=== PATIENT | male | born 1990 | race African-American/Black ===

== ENCOUNTER 2017-01-12 18:17 | Emergency (ER) | payer OTHER ==
[~2017-01-12] VITALS: Ht 170.2 cm; Wt 67.1 kg
[~2017-01-12 18:17] MED LIST: HYDR-3326 PO
--- NOTE | 2017-01-12 18:41 | NUR ---
DR DUEÑAS AT THE BEDSIDE FOR EVAL AND EXAM.
--- NOTE | 2017-01-12 18:57 | NUR ---
PT LEFT ER FOR CT.
[2017-01-12 19:01] LABS: BASOPHILS % (AUTO) 0.8 % (0.0-2.0); EOSINOPHILS # (AUTO) 0.2 K/uL (0.0-0.7); EOSINOPHILS % (AUTO) 4.1 % (0.0-7.0); HEMATOCRIT 44.6 % (40-50); HEMOGLOBIN 14.4 G/DL (14.0-18.0); LYMPHOCYTES # (AUTO) 1.2 K/UL (0.8-4.8); LYMPHOCYTES % (AUTO) 29.6 % (20.5-51.5); MEAN CORPUSCULAR HEMOGLOBIN 27.2 UUG (27.0-31.0); MEAN CORPUSCULAR HGB CONC 32 g/dL (32.0-37.0); MEAN CORPUSCULAR VOLUME 83.9 FL (82.0-92.0); MONOCYTES # (AUTO) 0.6 K/UL (0.1-1.30); MONOCYTES % (AUTO) 15.7 % (0.0-11.0); NEUTROPHILS # (AUTO) 2.1 K/UL (1.8-8.9); NEUTROPHILS % (AUTO) 49.8 % (38.5-71.5); PLATELET COUNT (AUTO) 215 K/UL (150-450); RED BLOOD CELL COUNT(AUTO) 5.31 MIL/UL (4.7-6.1); WHITE BLOOD COUNT (AUTO) 4.1 K/UL (4.0-11.2)
[2017-01-12 19:28] LABS: BILIRUBIN,DIRECT 0.1 mg/dL (0.0-0.2); BILIRUBIN,TOTAL 0.5 mg/dL (0.2-1.0); TOTAL PROTEIN, SERUM 8.6 g/dL (6.4-8.2)
[2017-01-12 19:38] LABS: NEUTROPHILS % (MANUAL) 54 % (42-75)
[2017-01-12 19:39] LABS: EOSINOPHILS % (MANUAL) 2 % (0-8); LYMPHOCYTES % (MANUAL) 36 % (20-40); MONOCYTES % (MANUAL) 8 % (2-10)
[2017-01-12] MEDS ORDERED: ACETAMINOPHEN ES 500 MG TABLET PO ONE (19:45)
[2017-01-12] MEDS ORDERED: ACETAMINOPHEN ES 500 MG TABLET ONE (19:54)
[2017-01-12 20:05] LABS: CREATININE 1.4 mg/dL (0.6-1.3); POTASSIUM 3.5 mmol/L (3.5-5.1)
--- NOTE | 2017-01-12 20:53 | NUR ---
Patient discharged to home in stable conditon. Written and verbal after care instructions given. Patient verbalizes understanding of instructions. pt able to ambulate on own, with no assistance, IV removed from left AC, pt walked out of ER unassisted with belongings and friend at side...
[2017-01-12 20:55] VITALS: BP 118/56
== END 2017-01-12 21:01 | disposition home or self-care (01) ==
LOC: ER 18:18
DX: R55 Syncope and collapse (principal); N28.9 Disorder of kidney and ureter, unspecified; F17.200 Nicotine dependence, unspecified, uncomplicated; W18.30XA Fall on same level, unspecified, initial encounter; Y93.89 Activity, other specified; Y99.8 Other external cause status; Y92.89 Other specified places as the place of occurrence of the external cause
CPT/HCPCS: 36415; 70450; 72040; 85025; 93005; A4663

== ENCOUNTER 2017-01-13 16:03 | Emergency (ER) | payer OTHER ==
[~2017-01-13] VITALS: Ht 170.2 cm; Wt 67.1 kg
[2017-01-13] MEDS ORDERED: ONDANSETRON 4 MG/2 ML VIAL IV ONE (16:15)
[2017-01-13] MEDS ORDERED: IV NORMAL SALINE 1000 ML BAG IV ONE (16:15)
[2017-01-13 16:26] LABS: BASOPHILS % (AUTO) 0.3 % (0.0-2.0); EOSINOPHILS % (AUTO) 0.3 % (0.0-7.0); HEMATOCRIT 46.8 % (40-50); HEMOGLOBIN 15.2 G/DL (14.0-18.0); LYMPHOCYTES # (AUTO) 0.8 K/UL (0.8-4.8); LYMPHOCYTES % (AUTO) 13.3 % (20.5-51.5); MEAN CORPUSCULAR HEMOGLOBIN 27.3 UUG (27.0-31.0); MEAN CORPUSCULAR HGB CONC 32 g/dL (32.0-37.0); MEAN CORPUSCULAR VOLUME 84.1 FL (82.0-92.0); MONOCYTES # (AUTO) 0.6 K/UL (0.1-1.30); MONOCYTES % (AUTO) 10.2 % (0.0-11.0); NEUTROPHILS # (AUTO) 4.4 K/UL (1.8-8.9); NEUTROPHILS % (AUTO) 75.9 % (38.5-71.5); PLATELET COUNT (AUTO) 239 K/UL (150-450); RED BLOOD CELL COUNT(AUTO) 5.57 MIL/UL (4.7-6.1); WHITE BLOOD COUNT (AUTO) 5.8 K/UL (4.0-11.2)
[2017-01-13] MEDS ORDERED: ONDANSETRON 4 MG/2 ML VIAL ONE (16:29)
[2017-01-13 16:34] LABS: CREATININE 1.2 mg/dL (0.6-1.3); POTASSIUM 3.6 mmol/L (3.5-5.1)
--- NOTE | 2017-01-13 17:07 | NUR ---
Patient discharged to home in stable conditon. Written and verbal after care instructions given. Patient verbalizes understanding of instructions.pt walks in steady gait.
[2017-01-13 17:08] VITALS: BP 132/81
== END 2017-01-13 17:09 | disposition home or self-care (01) ==
LOC: ER 16:05
DX: S06.0X9A Concussion with loss of consciousness of unspecified duration, initial encounter (principal); R11.2 Nausea with vomiting, unspecified; F17.200 Nicotine dependence, unspecified, uncomplicated; X58.XXXA Exposure to other specified factors, initial encounter; Y93.89 Activity, other specified; Y92.89 Other specified places as the place of occurrence of the external cause; Y99.8 Other external cause status
CPT/HCPCS: 36415; 85025; A4663; J2405; J7030

== ENCOUNTER 2017-06-20 07:25 | Inpatient (IN) | payer OTHER ==
[~2017-06-20] VITALS: Ht 170.2 cm; Wt 70.3 kg
--- NOTE | 2017-06-20 07:46 | NUR ---
PT IS IN ROOM #2B. DR JUAREZ EVALUATED THE PT.
[2017-06-20] MEDS ORDERED: PROMETHAZINE HCL 25 MG/1 ML VIAL IM ONE (08:00)
[2017-06-20] MEDS ORDERED: HYDROMORPHONE 1 MG/1 ML DISP.SYRIN IM ONE (08:00)
[2017-06-20 08:03] LABS: *BILIRUBIN,URIN NEGATIVE (NEGATIVE); *BLOOD, URINE NEGATIVE (NEGATIVE); *CLARITY,URINE CLEAR (CLEAR); *COLOR,URINE YELLOW (YELLOW); *KETONES,URINE NEGATIVE (NEGATIVE); *PROTEIN,URINE 1+ (NEGATIVE); LEUKOCYTE ESTERASE ,URINE NEGATIVE (NEGATIVE); NITRITE, URINE NEGATIVE (NEGATIVE); UGLUCOSE NEGATIVE (NEGATIVE)
[2017-06-20] MEDS ORDERED: PROMETHAZINE HCL 25 MG/1 ML VIAL ONE (08:10)
[2017-06-20] MEDS ORDERED: HYDROMORPHONE 2 MG/1 ML DISP.SYRIN ONE (08:10)
[2017-06-20 08:14] LABS: BACTERIA,URINE FEW /HPF (NONE SEEN); RBC,URINE 0-3 /HPF (0-3); SQUAMOUS EPITHELIAL CELL,UR FEW /HPF (NONE SEEN)
[2017-06-20] MEDS ORDERED: IV NORMAL SALINE 1000 ML BAG IV ONE (09:00)
[2017-06-20] MEDS ORDERED: METRONIDAZOLE 500 MG/NS 100 ML PIGGYBACK IV ONE (09:15)
[2017-06-20] MEDS ORDERED: CEFTRIAXONE 1 G in IV DEXTROSE 5% 50 ML IV ONE (09:15)
[2017-06-20 09:31] LABS: BASOPHILS % (AUTO) 0.9 % (0.0-2.0); EOSINOPHILS % (AUTO) 0.8 % (0.0-7.0); HEMATOCRIT 41.5 % (36.7-47.1); HEMOGLOBIN 14.2 g/dL (12.5-16.3); LYMPHOCYTES # (AUTO) 0.7 K/uL (20.0-40.0); LYMPHOCYTES % (AUTO) 21.9 % (20.5-51.5); MEAN CORPUSCULAR HEMOGLOBIN 27.9 uug (23.8-33.4); MEAN CORPUSCULAR HGB CONC 34 g/dL (32.5-36.3); MEAN CORPUSCULAR VOLUME 81.9 fL (73.0-96.2); MONOCYTES # (AUTO) 1.2 K/uL (2.0-10.0); MONOCYTES % (AUTO) 36.5 % (0.0-11.0); NEUTROPHILS # (AUTO) 1.3 K/uL (1.8-8.9); NEUTROPHILS % (AUTO) 39.9 % (38.5-71.5); PLATELET COUNT (AUTO) 173 K/uL (152-348); RED BLOOD CELL COUNT(AUTO) 5.07 MIL/uL (4.06-5.63); WHITE BLOOD COUNT (AUTO) 3.2 K/uL (3.6-10.2)
[2017-06-20] MEDS ORDERED: CEFTRIAXONE 1 G VIAL ONE (09:31)
[2017-06-20] MEDS ORDERED: METRONIDAZOLE 500 MG/NS 100ML 100 ML IV ONE (09:31)
[2017-06-20 09:33] LABS: CREATININE 1.3 mg/dL (0.6-1.3); POTASSIUM 3.9 mmol/L (3.5-5.1)
[2017-06-20 09:39] LABS: BILIRUBIN,DIRECT 0.1 mg/dL (0.0-0.2); BILIRUBIN,TOTAL 0.4 mg/dL (0.2-1.0); TOTAL PROTEIN, SERUM 7.4 g/dL (6.4-8.2)
[2017-06-20 09:51] LABS: EOSINOPHILS % (MANUAL) 1 % (0-8); LYMPHOCYTES % (MANUAL) 27 % (20-40); MONOCYTES % (MANUAL) 23 % (2-10); NEUTROPHILS % (MANUAL) 49 % (42-75)
--- NOTE | 2017-06-20 10:00 | NUR ---
PT ARRIVED ON THE UNIT CALM, COOPERATIVE, NO SIGNS OF RESPIRATORY DISTRESS, CONTINUE TO GIVE FLAGYL FROM DOWNSTAIRS. PT VERBALIZED PLAN OF CARE: LAPAROSCOPIC APPENDECTOMY TODAY AT APPROX 15:30. PT IS TO REMAIN NPO FOR PROCEDURE. PT IS AGREEABLE TO PLAN OF CARE.
[2017-06-20 10:10] VITALS: BP 126/76
--- NOTE | 2017-06-20 10:11 | NUR ---
PT WAS TRANSFERED TO ROOM #226. REPORT WAS GIVEN TO M/S RN.
[2017-06-20 11:45] VITALS: BP 123/74
[2017-06-20] MEDS ORDERED: IV D5W-0.45% NS +20 KCL 1,000 ML IV PRN (13:25)
[2017-06-20] MEDS ORDERED: ONDANSETRON 4 MG/2 ML VIAL IV PRN ×2 (13:30→17:45)
[2017-06-20] MEDS ORDERED: ACETAMINOPHEN 325 MG TABLET PO PRN (13:30)
[2017-06-20] MEDS ORDERED: MORPHINE SULFATE 2 MG/1 ML DISP.SYRIN IV PRN (13:30)
[2017-06-20] MEDS ORDERED: MORPHINE SULFATE 4 MG/1 ML DISP.SYRIN IV PRN ×2 (13:45→17:45)
[2017-06-20] MEDS: METRONIDAZOLE 500 MG/NS 100ML 500 MG in PREMIXED 1 EACH IV SCH ×2 (14:06→21:38)
--- NOTE | 2017-06-20 15:30 | NUR ---
PT HAS IV IN RIGHT FOREARM, INTACT 20 GAUGE. PT SIGNED CONSENT FOR PROCEDURE AND IN SIDE THE CHART, PRE-OP CHECK LIST DONE, JEWELRY YELLOW NECKLACE AND BRACELET PUT AWAY. PT LEFT UNIT FOR LAPAROSCOPIC APPENDECTOMY.
[2017-06-20 15:48] VITALS: BP 155/87
[2017-06-20] MEDS ORDERED: MIDAZOLAM HCL 2 MG/2 ML VIAL ONE (15:55)
[2017-06-20] MEDS ORDERED: FENTANYL CITRATE 100 MCG/2 ML AMPUL ONE (15:55)
[2017-06-20] MEDS ORDERED: ROCURONIUM BROMIDE 50 MG/5 ML VIAL ONE (15:56)
[2017-06-20] MEDS ORDERED: LIDOCAINE HCL 1% 20 ML VIAL ONE (16:07)
[2017-06-20] MEDS ORDERED: BUPIVACAINE 0.25% 30 ML VIAL ONE (16:08)
--- NOTE | 2017-06-20 18:10 | NUR ---
PT ARRIVED FROM PROCEDURE, CALM, COOPERATIVE, NO SIGNS OF DISTRESS, VITALS STABLE. PT GIVEN BACK HIS YELLOW NECKLACE AND BRACELET.
--- NOTE | 2017-06-20 18:40 | NUR ---
PT C/O 6/10 PAIN AND WAS GIVEN A NORCO. PT IS OBSERVED RESTING WITH NO DISTRESS. FAMILY IS AT BEDSIDE.
[2017-06-20] MEDS: HYDROCODONE/APAP 5-325MG TABLET PO PRN (18:42)
[2017-06-20] MEDS: IV D5 1/2 NS 1000 ML 1,000 ML IV PRN (19:00)
[2017-06-20] MEDS: MORPHINE SULFATE 4 MG/1 ML DISP.SYRIN IV PRN ×2 (19:49→23:17)
--- NOTE | 2017-06-20 20:00 | NUR ---
RECEIVED PATIENT AWAKE IN BED WITH FAMILY AT BEDSIDE. PATIENT IS A/O X4. C/O PAIN AROUND SURGICAL SITE. INCISIONS X3 NOTED, INTACT WITH DERMA-JACOB. VSS. PATIENT WAS PREVIOUSLY MEDICATED WITH 1 NORCO BUT INEFFECTIVE. GIVEN MORPHINE 3MG IV PRN AND ZOFRAN 4MG IV PRN FOR NAUSEA. IVF INFUSING WELL TO RIGHT FA. NO RESP. DISTRESS NOTED. CALL LIGHT IN REACH, ALL NEEDS ATTENDED. WILL CONTINUE TO MONITOR AND ASSESS.
[2017-06-20] MEDS ORDERED: SEVOFLURANE 250 ML BOTTLE IH ONE (20:17)
[2017-06-20] MEDS ORDERED: NEOSTIGMINE METHYLSULFATE 10 MG/10 ML VIAL IV ONE (20:17)
[2017-06-20] MEDS ORDERED: IV LACTATED RINGERS SOLUTION 1,000 ML BAG IV ONE ×2 (20:17)
[2017-06-20] MEDS ORDERED: LIDOCAINE-MPF 2% 5 ML VIAL MC ONE (20:17)
[2017-06-20] MEDS ORDERED: KETOROLAC TROMETHAMINE 30 MG INJ IM ONE (20:17)
[2017-06-20] MEDS ORDERED: PROPOFOL 200 MG/20 ML BOTTLE IV ONE (20:17)
[2017-06-20] MEDS ORDERED: CEFAZOLIN 1 G VIAL MC ONE (20:17)
[2017-06-20] MEDS ORDERED: GLYCOPYRROLATE 0.2 MG/ML VIAL MC ONE (20:17)
[2017-06-20] MEDS ORDERED: DEXAMETHASONE SOD PHOSPHATE 4 MG INJ IV ONE (20:17)
[2017-06-20] MEDS ORDERED: ONDANSETRON 4 MG/2 ML VIAL IV ONE (20:17)
[2017-06-20 20:54] VITALS: BP 114/74
[2017-06-20] MEDS ORDERED: CEFTRIAXONE 2 G in IV DEXTROSE 5% 100 ML IV SCH (21:00)
--- NOTE | 2017-06-20 21:00 | NUR ---
PATIENT AWAKE IN BED. PAIN MEDICATION EFFECTIVE. PATIENT GIVEN INCENTIVE SPIROMETER AND TEACHING PROVIDED. PATIENT VERBALIZED UNDERSTANDING. PATIENT EDUCATED ON THE IMPORTANCE OF AMBULATION AND ENCOURAGED TO GET OOB AND AMBULATE. ICE APPLIED TO TO AFFECTED AREA FOR RELIEF. CALL LIGHT IN REACH. ALL NEEDS ATTENDED. WILL CONTINUE TO MONITOR.
[2017-06-21] MEDS: MORPHINE SULFATE 4 MG/1 ML DISP.SYRIN IV PRN ×3 (02:11→13:40)
[2017-06-21] MEDS: IV D5 1/2 NS 1000 ML 1,000 ML IV PRN ×2 (02:52→13:47)
[2017-06-21 04:48] VITALS: BP 112/61
--- NOTE | 2017-06-21 06:00 | NUR ---
PATIENT ASLEEP IN BED. NO S/S OF PAIN OR DISCOMFORT. NO RESP. DISTRESS NOTED. IV INFUSING WELL TO RIGHT FA. CALL LIGHT IN REACH. ALL NEEDS ATTENDED.
[2017-06-21] MEDS: METRONIDAZOLE 500 MG/NS 100ML 500 MG in PREMIXED 1 EACH IV SCH ×2 (06:15→14:58)
[2017-06-21 07:18] LABS: BASOPHILS % (AUTO) 0.5 % (0.0-2.0); EOSINOPHILS % (AUTO) 0.3 % (0.0-7.0); HEMATOCRIT 37.4 % (36.7-47.1); HEMOGLOBIN 12.8 g/dL (12.5-16.3); LYMPHOCYTES # (AUTO) 0.8 K/uL (20.0-40.0); LYMPHOCYTES % (AUTO) 21.9 % (20.5-51.5); MEAN CORPUSCULAR HEMOGLOBIN 27.9 uug (23.8-33.4); MEAN CORPUSCULAR HGB CONC 34 g/dL (32.5-36.3); MEAN CORPUSCULAR VOLUME 81.1 fL (73.0-96.2); MONOCYTES # (AUTO) 0.7 K/uL (2.0-10.0); MONOCYTES % (AUTO) 18.6 % (0.0-11.0); NEUTROPHILS # (AUTO) 2.1 K/uL (1.8-8.9); NEUTROPHILS % (AUTO) 58.7 % (38.5-71.5); PLATELET COUNT (AUTO) 168 K/uL (152-348); RED BLOOD CELL COUNT(AUTO) 4.61 MIL/uL (4.06-5.63); WHITE BLOOD COUNT (AUTO) 3.7 K/uL (3.6-10.2)
[2017-06-21] MEDS ORDERED: MORPHINE SULFATE 4 MG/1 ML DISP.SYRIN ONE (07:24)
[2017-06-21 07:30] LABS: BILIRUBIN,TOTAL 0.2 mg/dL (0.2-1.0); MAGNESIUM 1.6 mg/dL (1.8-2.4); PHOSPHOROUS 4.1 mg/dL (2.5-4.9); POTASSIUM 3.7 mmol/L (3.5-5.1); TOTAL PROTEIN, SERUM 6.4 g/dL (6.4-8.2)
--- NOTE | 2017-06-21 09:00 | NUR ---
PT VERBALIZES PAIN 9/10 ON THE ANTERIOR UPPER PORTION OF ABDOMEN. GRIMACING, GUARDING, RESTLESS. PT GIVEN MORPHINE WILL CONTINUE TO MONITOR.
[2017-06-21 09:28] LABS: BAND % (MANUAL) 17 % (0-10); BASOPHILS % (MANUAL) 1 % (0-2); EOSINOPHILS % (MANUAL) 1 % (0-8); LYMPHOCYTES % (MANUAL) 22 % (20-40); MONOCYTES % (MANUAL) 21 % (2-10); NEUTROPHILS % (MANUAL) 38 % (42-75)
--- NOTE | 2017-06-21 09:37 | NUR ---
PT PLAN OF CARE TODAY IS TO MANAGE PAIN, AMBULATE, HAVE BM AND, USE INCENTIVE SPIROMETER. PT IS AGREEABLE WITH PLAN OF CARE. USE OF INCENTIVE SPIROMETER WAS TAUGHT. TO VERBALIZES UNDERSTANDING.
[2017-06-21 11:04] VITALS: BP 129/80
[2017-06-21] MEDS: MAGNESIUM SULFATE/D5W 100 ML IV SCH ×2 (13:40→14:58)
[2017-06-21 15:12] VITALS: BP 125/85
[2017-06-21] MEDS ORDERED: ACET-2154 PO (18:29)
--- NOTE | 2017-06-21 18:47 | NUR ---
PTS PLAN OF CARE WAS EFFECTIVE, PT IS AGREEABLE WITH RESULT. PT'S PAIN IS MANAGED, HE AMBULATED AND USED HIS INCENTIVE SPIROMETER, AND VOIDED TODAY. PT IS OBSERVED RESTING WITHOUT RESPIRATORY DISTRESS, NO SIGNS OF INFECTION, CALM, COOPERATIVE.
[2017-06-21] MEDS: HYDROCODONE/APAP 5-325MG TABLET PO PRN (19:31)
--- NOTE | 2017-06-21 19:35 | NUR ---
RECEIVED PATIENT AWAKE IN BED. A/O X4. RECEIVED ORDER FOR PATIENT TO BE DISCHARGED TONIGHT. PATIENT IS C/O IN ABDOMEN. GIVEN NORCO 1 TAB FOR PAIN. VSS. PATIENT INSTRUCTED THAT HE NEEDS TO WAIT A LITTLE WHILE AFTER TAKING MEDICATION. VERBALIZED UNDERSTANDING, PATIENT IS BEING PICKED UP BY FRIEND. WILL CONTINUE TO MONITOR.
--- NOTE | 2017-06-21 20:13 | NUR ---
FRIEND AT BEDSIDE TO REGIONAL ENGAGEMENT CONSULTANT PATIENT. NORCO EFFECTIVE. PATIENT DENIES PAIN. VSS. DISCHARGE TEACHING PROVIDED. CALL LIGHT IN REACH. ALL NEEDS ATTENDED. WILL CONTINUE TO MONITOR AND ASSESS.
--- NOTE | 2017-06-21 20:18 | NUR ---
PATIENT LEFT IN STABLE CONDITION.
== END 2017-06-21 20:18 | disposition home or self-care (01) | DRG 225 ==
LOC: ER 07:25 → MED 09:44
PROVIDERS: ADMIT Nurse Practitioner Acute Care; ATTEND Nurse Practitioner Acute Care
PROC: 0DTJ4ZZ Resection of Appendix, Percutaneous Endoscopic Approach (ICD-10-PCS; principal; 2017-06-20 15:20)
DX: K35.80 Unspecified acute appendicitis (principal); K85.90 Acute pancreatitis without necrosis or infection, unspecified; R80.9 Proteinuria, unspecified
CPT/HCPCS: 36415; 83690; 83735; 84100; 85025; 85730; A4663; J0690; J0696; J1100; J1170; J1885; J2250; J2270; J2405; J2550; J2710; J3010; J3475; J3490; J7030; J7060; J7120

== ENCOUNTER 2017-06-22 21:58 | Emergency (ER) | payer OTHER ==
[~2017-06-22] VITALS: Ht 170.2 cm; Wt 70.3 kg
[~2017-06-22 21:58] MED LIST changes: +ACET-2154 PO; -HYDR-3326 PO
[2017-06-22 23:19] LABS: BASOPHILS % (AUTO) 0.6 % (0.0-2.0); EOSINOPHILS # (AUTO) 0.1 K/uL (0.0-0.7); EOSINOPHILS % (AUTO) 1.6 % (0.0-7.0); HEMATOCRIT 41.2 % (36.7-47.1); HEMOGLOBIN 14.1 g/dL (12.5-16.3); LYMPHOCYTES # (AUTO) 1.6 K/uL (20.0-40.0); LYMPHOCYTES % (AUTO) 46.6 % (20.5-51.5); MEAN CORPUSCULAR HEMOGLOBIN 27.9 uug (23.8-33.4); MEAN CORPUSCULAR HGB CONC 34 g/dL (32.5-36.3); MEAN CORPUSCULAR VOLUME 81.2 fL (73.0-96.2); MONOCYTES # (AUTO) 0.8 K/uL (2.0-10.0); MONOCYTES % (AUTO) 21.8 % (0.0-11.0); NEUTROPHILS % (AUTO) 29.4 % (38.5-71.5); PLATELET COUNT (AUTO) 176 K/uL (152-348); RED BLOOD CELL COUNT(AUTO) 5.07 MIL/uL (4.06-5.63); WHITE BLOOD COUNT (AUTO) 3.4 K/uL (3.6-10.2)
[2017-06-22 23:37] LABS: *BLOOD, URINE NEGATIVE (NEGATIVE); *COLOR,URINE AMBER (YELLOW); *KETONES,URINE 2+ (NEGATIVE); *PROTEIN,URINE NEGATIVE (NEGATIVE); LEUKOCYTE ESTERASE ,URINE NEGATIVE (NEGATIVE); NITRITE, URINE NEGATIVE (NEGATIVE); PH,URINE 8.5 (5.0-8.0); UGLUCOSE NEGATIVE (NEGATIVE)
[2017-06-22 23:39] LABS: BILIRUBIN,DIRECT 0.2 mg/dL (0.0-0.2); BILIRUBIN,TOTAL 0.6 mg/dL (0.2-1.0); POTASSIUM 3.7 mmol/L (3.5-5.1); TOTAL PROTEIN, SERUM 7.7 g/dL (6.4-8.2)
[2017-06-22 23:40] LABS: *BILIRUBIN,URIN 1+ (NEGATIVE); *CLARITY,URINE HAZY (CLEAR)
[2017-06-23] MEDS ORDERED: ONDANSETRON 4 MG/2 ML VIAL IV ONE
[2017-06-23] MEDS ORDERED: IV NORMAL SALINE 1000 ML BAG IV ONE
[2017-06-23] MEDS ORDERED: HYDROMORPHONE 1 MG/1 ML DISP.SYRIN IV ONE
[2017-06-23 00:17] LABS: BACTERIA,URINE NONE SEEN /HPF (NONE SEEN); RBC,URINE 0-3 /HPF (0-3); SQUAMOUS EPITHELIAL CELL,UR FEW /HPF (NONE SEEN); URINE AMORPHOUS PHOSPHATES MANY /HPF; WBC,URINE 0-3 /HPF (0-3)
[2017-06-23] MEDS ORDERED: ONDANSETRON 4 MG/2 ML VIAL ONE (00:19)
[2017-06-23] MEDS ORDERED: HYDROMORPHONE 4 MG/1 ML DISP.SYRIN ONE (00:20)
--- NOTE | 2017-06-23 01:38 | NUR ---
Patient discharged to home in stable conditon. Written and verbal after care instructions given. Patient verbalizes understanding of instructions.
[2017-06-23 05:05] LABS: BAND % (MANUAL) 3 % (0-10); EOSINOPHILS % (MANUAL) 1 % (0-8); LYMPHOCYTES % (MANUAL) 55 % (20-40); MONOCYTES % (MANUAL) 17 % (2-10); NEUTROPHILS % (MANUAL) 22 % (42-75)
== END 2017-06-23 01:39 | disposition home or self-care (01) ==
LOC: ER 21:58
DX: G89.18 Other acute postprocedural pain (principal); F17.200 Nicotine dependence, unspecified, uncomplicated; R11.2 Nausea with vomiting, unspecified; K85.90 Acute pancreatitis without necrosis or infection, unspecified; Z90.49 Acquired absence of other specified parts of digestive tract; Z98.890 Other specified postprocedural states
CPT/HCPCS: 36415; 83605; 83690; 85025; 87040; A4663; J1170; J2405; J7030

== ENCOUNTER 2017-08-18 15:16 | Emergency (ER) | payer OTHER ==
[~2017-08-18] VITALS: Ht 170.2 cm; Wt 68.0 kg
--- NOTE | 2017-08-18 15:33 | NUR ---
PATIENT HERE FOR N/V AND ABDOMINAL PAIN. IV PLACED. PLACED ON MONITOR.
[2017-08-18] MEDS: IV NORMAL SALINE 1000 ML BAG IV ONE (16:33)
[2017-08-18] MEDS: ONDANSETRON 4 MG/2 ML VIAL IV ONE (16:40)
[2017-08-18] MEDS: HYDROMORPHONE 1 MG/1 ML DISP.SYRIN IV ONE (16:44)
[2017-08-18 16:52] LABS: BASOPHILS % (AUTO) 0.4 % (0.0-2.0); EOSINOPHILS % (AUTO) 0.1 % (0.0-7.0); HEMATOCRIT 41.7 % (36.7-47.1); HEMOGLOBIN 14.4 g/dL (12.5-16.3); LYMPHOCYTES # (AUTO) 0.6 K/uL (20.0-40.0); MEAN CORPUSCULAR HEMOGLOBIN 28.3 uug (23.8-33.4); MEAN CORPUSCULAR HGB CONC 34 g/dL (32.5-36.3); MEAN CORPUSCULAR VOLUME 82.3 fL (73.0-96.2); MONOCYTES # (AUTO) 0.6 K/uL (2.0-10.0); MONOCYTES % (AUTO) 6.6 % (0.0-11.0); NEUTROPHILS # (AUTO) 7.7 K/uL (1.8-8.9); NEUTROPHILS % (AUTO) 85.9 % (38.5-71.5); PLATELET COUNT (AUTO) 165 K/uL (152-348); RED BLOOD CELL COUNT(AUTO) 5.07 MIL/uL (4.06-5.63); WHITE BLOOD COUNT (AUTO) 8.9 K/uL (3.6-10.2)
[2017-08-18 16:54] LABS: *BILIRUBIN,URIN NEGATIVE (NEGATIVE); *BLOOD, URINE NEGATIVE (NEGATIVE); *CLARITY,URINE CLEAR (CLEAR); *COLOR,URINE YELLOW (YELLOW); *KETONES,URINE TRACE (NEGATIVE); *PROTEIN,URINE NEGATIVE (NEGATIVE); *UROBILINOGEN,URINE 0.2 E.U./dl (NORMAL); LEUKOCYTE ESTERASE ,URINE NEGATIVE (NEGATIVE); NITRITE, URINE NEGATIVE (NEGATIVE); PH,URINE 5.5 (5.0-8.0); UGLUCOSE NEGATIVE (NEGATIVE)
[2017-08-18] MEDS ORDERED: ONDANSETRON 4 MG/2 ML VIAL ONE (16:55)
[2017-08-18] MEDS ORDERED: HYDROMORPHONE 2 MG/1 ML DISP.SYRIN ONE (16:55)
[2017-08-18 17:07] LABS: MUCUS,URINE MANY /LPF (0-FEW); WBC,URINE 0-3 /HPF (0-3)
--- NOTE | 2017-08-18 17:15 | NUR ---
PATIENT STATES NAUSEA HAS DIMINISHED SIGNIFICANTLY AND PAIN HAS DIMINISHED ALSO.
[2017-08-18 17:17] LABS: CREATININE 1.1 mg/dL (0.6-1.3); POTASSIUM 3.5 mmol/L (3.5-5.1)
[2017-08-18 17:23] LABS: BILIRUBIN,DIRECT 0.2 mg/dL (0.0-0.2); BILIRUBIN,TOTAL 0.6 mg/dL (0.2-1.0); TOTAL PROTEIN, SERUM 7.8 g/dL (6.4-8.2)
--- NOTE | 2017-08-18 18:23 | NUR ---
IV removed. Catheter intact and site benign. Pressure and 4x4 gauze applied to site. No bleeding noted.
--- NOTE | 2017-08-18 18:24 | NUR ---
Patient discharged to home in stable conditon. Written and verbal after care instructions given. Patient verbalizes understanding of instructions. DILAUDID PRECAUTIONS GIVEN AND EXPLAINED. PT STATES HE IS NOT DRIVING.
[2017-08-18 18:25] VITALS: BP 122/69
== END 2017-08-18 18:30 | disposition home or self-care (01) ==
LOC: ER 15:17
DX: K86.1 Other chronic pancreatitis (principal); K85.90 Acute pancreatitis without necrosis or infection, unspecified; F17.200 Nicotine dependence, unspecified, uncomplicated; Z90.49 Acquired absence of other specified parts of digestive tract; Z98.890 Other specified postprocedural states
CPT/HCPCS: 36415; 71045; 83690; 85025; 87086; A4663; J1170; J2405

== ENCOUNTER 2017-08-19 07:52 | Emergency (ER) | payer OTHER ==
[~2017-08-19] VITALS: Ht 170.2 cm; Wt 68.0 kg
--- NOTE | 2017-08-19 08:08 | NUR ---
Patient is AOx4, wearing his own socks but patient wants another pair of socks. "Cold feet makes me nauseous." per patient's verbalization. Another pair of socks provided per patient's request, NAD, calm and breathing easily.
[2017-08-19 08:29] LABS: BASOPHILS % (AUTO) 0.4 % (0.0-2.0); HEMATOCRIT 41.2 % (36.7-47.1); LYMPHOCYTES # (AUTO) 0.4 K/uL (20.0-40.0); LYMPHOCYTES % (AUTO) 4.8 % (20.5-51.5); MEAN CORPUSCULAR HGB CONC 34 g/dL (32.5-36.3); MEAN CORPUSCULAR VOLUME 82.3 fL (73.0-96.2); MONOCYTES # (AUTO) 0.6 K/uL (2.0-10.0); MONOCYTES % (AUTO) 6.2 % (0.0-11.0); NEUTROPHILS # (AUTO) 8.1 K/uL (1.8-8.9); NEUTROPHILS % (AUTO) 88.6 % (38.5-71.5); PLATELET COUNT (AUTO) 220 K/uL (152-348); RED BLOOD CELL COUNT(AUTO) 5.01 MIL/uL (4.06-5.63); WHITE BLOOD COUNT (AUTO) 9.1 K/uL (3.6-10.2)
[2017-08-19 08:34] LABS: CREATININE 1.3 mg/dL (0.6-1.3); POTASSIUM 3.6 mmol/L (3.5-5.1)
[2017-08-19] MEDS: ONDANSETRON IV *ER 4 MG/2 ML VIAL IV ONE (08:35)
[2017-08-19] MEDS ORDERED: MORPHINE SULFATE 4 MG/1 ML DISP.SYRIN ONE ×2 (08:37→13:58)
[2017-08-19] MEDS ORDERED: ONDANSETRON 4 MG/2 ML VIAL ONE (08:37)
[2017-08-19] MEDS: IV NS 1000 ML 1,000 ML IV ONE ×2 (08:38→09:32)
[2017-08-19] MEDS: MORPHINE SULFATE 2 MG/1 ML DISP.SYRIN IV ONE ×2 (08:38→13:43)
[2017-08-19 08:40] LABS: BILIRUBIN,TOTAL 0.8 mg/dL (0.2-1.0)
--- NOTE | 2017-08-19 09:12 | NUR ---
NPO maintained 2/2 nausea & multiple vomiting episodes prior to arrival to ER, pending trsnfer information. Patient is capitated to [facility] per ER Reji- registration staff.
[2017-08-19 09:13] LABS: *AMPHETAMINE, URINE NEGATIVE (NEGATIVE); *BARBITURATE, URINE NEGATIVE (NEGATIVE); *CANNABINOID, URINE POSITIVE (NEGATIVE); *COCCAINE, URINE NEGATIVE (NEGATIVE); *OPIATE, URINE NEGATIVE (NEGATIVE); *PHENCYCLIDINE SCREEN,URINE NEGATIVE (NEGATIVE)
--- NOTE | 2017-08-19 10:24 | NUR ---
Patient is resting comfortably on gurney with eyes closed, NAD, no vomiting seen since IV Zofran was given
--- NOTE | 2017-08-19 11:16 | NUR ---
Still for transfer to his another hospital (capitated to [facility]), ER registration staff Reji is " working on it", no axcute change in condition seen, pt is sleeping, easily arousable, no vomiting seen after 1st dose of IV Zofran, endorsed to TERE Clemons accordingly
--- NOTE | 2017-08-19 13:14 | NUR ---
PT ABD SOFT. NOT VOMITING ANYMORE. NOTES PAIN RELIEVED AND MILD 3/10 NOW. COLOR GOOD AND VSS.
--- NOTE | 2017-08-19 13:15 | NUR ---
REPORT RECEIVED FOR PTS CARE.
--- NOTE | 2017-08-19 15:56 | NUR ---
NO DISTRESS. PAIN FREE NOW AND NAUSEAU FREE. REQUESTS TO BE D/C AND FU AT [facility]. GIVEN RX. ADVISED LIGHT DIET AND ++ FLUIDS. AND ADVISED RETURN IF SYMPTOMS INCREASE CHANGE OR PERSIST.
--- NOTE | 2017-08-19 16:01 | NUR ---
IV D.C. FULLY INTACT. NO SWELLING NO BLEEDING.
[2017-08-19 16:10] VITALS: BP 132/77
== END 2017-08-19 16:11 | disposition home or self-care (01) ==
LOC: ER 07:52
DX: G43.A0 Cyclical vomiting, in migraine, not intractable (principal); K86.1 Other chronic pancreatitis; K85.90 Acute pancreatitis without necrosis or infection, unspecified; Z90.49 Acquired absence of other specified parts of digestive tract; F17.200 Nicotine dependence, unspecified, uncomplicated
CPT/HCPCS: 36415; 80307; 83690; 85025; A4663; J2270; J2405; J7030

== ENCOUNTER 2017-12-29 02:31 | Emergency (ER) | payer OTHER ==
[~2017-12-29] VITALS: Ht 172.7 cm; Wt 77.1 kg
--- NOTE | 2017-12-29 02:40 | NUR ---
Dr. Glass at bedside for MSE.
[2017-12-29] MEDS ORDERED: LIDOCAINE VISCUS 2% 15 ML UDC ONE (02:56)
[2017-12-29] MEDS ORDERED: MAG HYDROX/AL HYDROX/SIMETH 30 ML LIQUID UDC ONE (02:57)
[2017-12-29] MEDS ORDERED: FAMOTIDINE 20 MG TABLET ONE (02:58)
[2017-12-29] MEDS ORDERED: ONDANSETRON ODT 4 MG TAB.RAPDIS ONE (02:58)
[2017-12-29] MEDS ORDERED: ONDANSETRON ODT 4 MG TAB.RAPDIS SL ONE (03:00)
[2017-12-29] MEDS ORDERED: MAG HYDROX/AL HYDROX/SIMETH 30 ML LIQUID UDC PO ONE (03:00)
[2017-12-29] MEDS ORDERED: LIDOCAINE VISCUS 2% 15 ML UDC MM ONE (03:00)
[2017-12-29] MEDS ORDERED: FAMOTIDINE 20 MG TABLET PO ONE (03:00)
--- NOTE | 2017-12-29 03:08 | NUR ---
Administered zofran, after 10 min, pt still nauseous and vomited. MD notified.
[2017-12-29] MEDS ORDERED: METOCLOPRAMIDE HCL 10 MG/2 ML VIAL ONE (03:28)
[2017-12-29] MEDS ORDERED: LORAZEPAM 2 MG/1 ML VIAL IV ONE (03:30)
[2017-12-29] MEDS ORDERED: IV NORMAL SALINE 1000 ML BAG IV ONE (03:30)
[2017-12-29] MEDS ORDERED: METOCLOPRAMIDE HCL 10 MG/2 ML VIAL IV ONE (03:30)
--- NOTE | 2017-12-29 03:40 | NUR ---
Luis Alfredo oneill in ED - 12/29/[address] [facility] at [facility] for MSE.
[2017-12-29] MEDS ORDERED: LORAZEPAM 2 MG/1 ML VIAL ONE (03:42)
--- NOTE | 2017-12-29 04:43 | NUR ---
Patient states nausea is gone, but has cramping pain 8/10 on abdomen.
--- NOTE | 2017-12-29 05:23 | NUR ---
Patient vomitted. notified.
[2017-12-29 05:58] LABS: BASOPHILS # (AUTO) 0.1 K/uL (0.0-8.0); BASOPHILS % (AUTO) 0.4 % (0.0-2.0); EOSINOPHILS % (AUTO) 0.1 % (0.0-7.0); HEMATOCRIT 42.7 % (36.7-47.1); HEMOGLOBIN 14.7 g/dL (12.5-16.3); LYMPHOCYTES # (AUTO) 0.4 K/uL (20.0-40.0); LYMPHOCYTES % (AUTO) 2.9 % (20.5-51.5); MEAN CORPUSCULAR HEMOGLOBIN 28.6 uug (23.8-33.4); MEAN CORPUSCULAR HGB CONC 35 g/dL (32.5-36.3); MEAN CORPUSCULAR VOLUME 82.9 fL (73.0-96.2); MONOCYTES # (AUTO) 1.1 K/uL (2.0-10.0); MONOCYTES % (AUTO) 7.4 % (0.0-11.0); NEUTROPHILS # (AUTO) 12.8 K/uL (1.8-8.9); NEUTROPHILS % (AUTO) 89.2 % (38.5-71.5); PLATELET COUNT (AUTO) 195 K/uL (152-348); RED BLOOD CELL COUNT(AUTO) 5.15 MIL/uL (4.06-5.63); WHITE BLOOD COUNT (AUTO) 14.4 K/uL (3.6-10.2)
[2017-12-29 06:10] LABS: CREATININE 1.2 mg/dL (0.6-1.3); POTASSIUM 4.3 mmol/L (3.5-5.1)
[2017-12-29 06:16] LABS: BILIRUBIN,DIRECT 0.2 mg/dL (0.0-0.2); BILIRUBIN,TOTAL 0.7 mg/dL (0.2-1.0); TOTAL PROTEIN, SERUM 8.1 g/dL (6.4-8.2)
--- NOTE | 2017-12-29 06:20 | NUR ---
Pt states he is having really sharp pains in his abdominal area. Md notified.
[2017-12-29] MEDS ORDERED: MORPHINE SULFATE 4 MG/1 ML DISP.SYRIN ONE (06:28)
[2017-12-29] MEDS ORDERED: MORPHINE SULFATE 4 MG/1 ML DISP.SYRIN IV ONE (06:30)
[2017-12-29] MEDS ORDERED: IOHEXOL 300MG/ML 100 ML INFUS..BTL ONE (06:40)
[2017-12-29] MEDS ORDERED: NORMAL SALINE FLUSH 10 ML DISP.SYRIN ONE (06:40)
[2017-12-29] MEDS ORDERED: SWABABLE VALVE TRANSFER SET EA MC ONE (06:40)
[2017-12-29] MEDS ORDERED: IV NORMAL SALINE 100 ML ONE (06:40)
--- NOTE | 2017-12-29 06:50 | NUR ---
Pt out of ER for CT.
--- NOTE | 2017-12-29 07:10 | NUR ---
Pt back to ER from CT.
--- NOTE | 2017-12-29 07:15 | NUR ---
Patient is resting comfortably in bed with eyes closed. PATIENT IS PAIN FREE AT THIS TIME.
--- NOTE | 2017-12-29 07:16 | NUR ---
Passed report to July CARRANZA.
--- NOTE | 2017-12-29 07:56 | NUR ---
IV removed. Catheter intact and site benign. Pressure and 4x4 gauze applied to site. No bleeding noted. Patient discharged to home in stable conditon. Written and verbal after care instructions given to patient. Patient verbalizes understanding of instructions.
== END 2017-12-29 08:05 | disposition home or self-care (01) ==
LOC: ER 02:35
DX: R11.2 Nausea with vomiting, unspecified (principal); R10.9 Unspecified abdominal pain; F17.210 Nicotine dependence, cigarettes, uncomplicated; Z90.49 Acquired absence of other specified parts of digestive tract; Z79.891 Long term (current) use of opiate analgesic
CPT/HCPCS: 36415; 74177; 80048; 80076; 83690; 85025; 96361; 96374; 96375; 99285; A4663; J2060; J2270; J2765; J3490 ×2; J7030; Q0162; Q9967

== ENCOUNTER 2017-12-29 20:40 | Emergency (ER) | payer OTHER ==
[~2017-12-29] VITALS: Ht 165.1 cm; Wt 72.6 kg
--- NOTE | 2017-12-29 21:23 | NUR ---
DR. MARQUIS AT BEDSIDE FOR MSE.
[2017-12-29] MEDS ORDERED: KETOROLAC TROMETHAMINE 15 MG INJ IV ONE (21:30)
[2017-12-29] MEDS ORDERED: METOCLOPRAMIDE HCL 10 MG/2 ML VIAL IV ONE (21:30)
[2017-12-29] MEDS ORDERED: IV NORMAL SALINE 1000 ML BAG IV ONE (21:30)
[2017-12-29] MEDS ORDERED: KETOROLAC TROMETHAMINE 15 MG INJ ONE (21:39)
[2017-12-29] MEDS ORDERED: METOCLOPRAMIDE HCL 10 MG/2 ML VIAL ONE (21:39)
[2017-12-29 22:01] LABS: BASOPHILS % (AUTO) 0.3 % (0.0-2.0); HEMATOCRIT 44.1 % (36.7-47.1); HEMOGLOBIN 15.5 g/dL (12.5-16.3); LYMPHOCYTES # (AUTO) 0.4 K/uL (20.0-40.0); LYMPHOCYTES % (AUTO) 4.4 % (20.5-51.5); MEAN CORPUSCULAR HGB CONC 35 g/dL (32.5-36.3); MEAN CORPUSCULAR VOLUME 82.3 fL (73.0-96.2); MONOCYTES # (AUTO) 0.5 K/uL (2.0-10.0); MONOCYTES % (AUTO) 5.5 % (0.0-11.0); NEUTROPHILS # (AUTO) 7.9 K/uL (1.8-8.9); NEUTROPHILS % (AUTO) 89.8 % (38.5-71.5); PLATELET COUNT (AUTO) 223 K/uL (152-348); RED BLOOD CELL COUNT(AUTO) 5.35 MIL/uL (4.06-5.63); WHITE BLOOD COUNT (AUTO) 8.8 K/uL (3.6-10.2)
[2017-12-29 22:07] LABS: BILIRUBIN,DIRECT 0.2 mg/dL (0.0-0.2); BILIRUBIN,TOTAL 0.7 mg/dL (0.2-1.0); CREATININE 1.3 mg/dL (0.6-1.3); POTASSIUM 4.3 mmol/L (3.5-5.1)
--- NOTE | 2017-12-29 23:15 | NUR ---
IV CAME OUT WHILE PATIENT WAS MOVING, CATHETER INTACT.
--- NOTE | 2017-12-29 23:25 | NUR ---
FLUID CHALLENGE DONE, NO NAUSEA/VOMITING NOTED. DENIES PAIN
[2017-12-29] MEDS ORDERED: MORPHINE SULFATE 4 MG/1 ML DISP.SYRIN IV ONE (23:30)
[2017-12-29] MEDS ORDERED: ONDANSETRON IV *ER 4 MG/2 ML VIAL IV ONE (23:30)
--- NOTE | 2017-12-29 23:35 | NUR ---
IV PAIN AND NAUSEA MEDICATION NOT GIVEN, RON WONG'D HOME. Patient discharged to home in stable conditon. Written and verbal after care instructions given. Patient verbalizes understanding of instructions. PATIENT LEFT WITH STABLE GAIT.
[2017-12-29 23:39] VITALS: BP 135/65
== END 2017-12-29 23:40 | disposition home or self-care (01) ==
LOC: ER 20:42
DX: R10.84 Generalized abdominal pain (principal); R11.2 Nausea with vomiting, unspecified; F17.210 Nicotine dependence, cigarettes, uncomplicated; F12.10 Cannabis abuse, uncomplicated; Z90.49 Acquired absence of other specified parts of digestive tract; Z79.891 Long term (current) use of opiate analgesic
CPT/HCPCS: 36415; 80048; 80076; 83690; 84484; 85025; 85730; 96361; 96374; 96375; 99284; A4663; J1885; J2765; J7030; 70030-TC

== ENCOUNTER 2017-12-30 09:50 | Emergency (ER) | payer OTHER ==
[~2017-12-30] VITALS: Ht 170.2 cm; Wt 70.3 kg
[2017-12-30] MEDS ORDERED: HYDROMORPHONE 1 MG/1 ML DISP.SYRIN IV ONE (10:15)
[2017-12-30] MEDS ORDERED: ONDANSETRON 4 MG/2 ML VIAL IV ONE (10:15)
[2017-12-30] MEDS ORDERED: IV NORMAL SALINE 1000 ML BAG IV ONE (10:15)
[2017-12-30] MEDS ORDERED: HYDROMORPHONE 2 MG/1 ML DISP.SYRIN ONE (10:19)
[2017-12-30] MEDS ORDERED: ONDANSETRON 4 MG/2 ML VIAL ONE (10:19)
[2017-12-30 10:20] LABS: BASOPHILS % (AUTO) 0.4 % (0.0-2.0); EOSINOPHILS % (AUTO) 0.2 % (0.0-7.0); HEMATOCRIT 41.9 % (36.7-47.1); HEMOGLOBIN 14.7 g/dL (12.5-16.3); LYMPHOCYTES # (AUTO) 0.4 K/uL (20.0-40.0); LYMPHOCYTES % (AUTO) 4.5 % (20.5-51.5); MEAN CORPUSCULAR HEMOGLOBIN 28.7 uug (23.8-33.4); MEAN CORPUSCULAR HGB CONC 35 g/dL (32.5-36.3); MEAN CORPUSCULAR VOLUME 82.2 fL (73.0-96.2); MONOCYTES # (AUTO) 0.9 K/uL (2.0-10.0); MONOCYTES % (AUTO) 10.2 % (0.0-11.0); NEUTROPHILS # (AUTO) 7.6 K/uL (1.8-8.9); NEUTROPHILS % (AUTO) 84.7 % (38.5-71.5); PLATELET COUNT (AUTO) 201 K/uL (152-348)
[2017-12-30 10:27] LABS: CREATININE 1.2 mg/dL (0.6-1.3); POTASSIUM 3.8 mmol/L (3.5-5.1)
--- NOTE | 2017-12-30 10:31 | NUR ---
PT IS IN ROOM #2B. DR JUAREZ EVALUATED THE PT.
[2017-12-30 10:33] LABS: BILIRUBIN,DIRECT 0.2 mg/dL (0.0-0.2); BILIRUBIN,TOTAL 0.7 mg/dL (0.2-1.0); TOTAL PROTEIN, SERUM 8.3 g/dL (6.4-8.2)
--- NOTE | 2017-12-30 11:58 | NUR ---
PT WAS D/C TO HOME. D/C INSTRUCTIONS GIVEN TO THE PT.
[2017-12-30 11:59] VITALS: BP 125/75
== END 2017-12-30 12:01 | disposition home or self-care (01) ==
LOC: ER 09:53
DX: R11.2 Nausea with vomiting, unspecified (principal); F17.210 Nicotine dependence, cigarettes, uncomplicated; F12.10 Cannabis abuse, uncomplicated; Z90.49 Acquired absence of other specified parts of digestive tract; Z79.899 Other long term (current) drug therapy
CPT/HCPCS: 36415; 83690; 85025; A4663; J1170; J2405; J7030

== ENCOUNTER 2017-12-31 10:42 | Emergency (ER) | payer OTHER ==
[~2017-12-31] VITALS: Ht 170.2 cm; Wt 70.3 kg
[2017-12-31] MEDS ORDERED: HYDROMORPHONE 1 MG/1 ML DISP.SYRIN IM ONE (12:00)
[2017-12-31] MEDS ORDERED: ONDANSETRON 4 MG/2 ML VIAL IM ONE (12:00)
[2017-12-31] MEDS ORDERED: ONDANSETRON 4 MG/2 ML VIAL ONE (12:10)
[2017-12-31] MEDS ORDERED: HYDROMORPHONE 2 MG/1 ML DISP.SYRIN ONE (12:10)
--- NOTE | 2017-12-31 12:42 | NUR ---
MSE COMPLETED, PT D/C'D HOME, ACI GIVEN.
[2017-12-31 12:44] VITALS: BP 129/78
== END 2017-12-31 12:45 | disposition home or self-care (01) ==
LOC: ER 10:42
DX: S06.0X0A Concussion without loss of consciousness, initial encounter (principal); F17.210 Nicotine dependence, cigarettes, uncomplicated; F12.10 Cannabis abuse, uncomplicated; Z90.49 Acquired absence of other specified parts of digestive tract; Z79.899 Other long term (current) drug therapy; W22.8XXA Striking against or struck by other objects, initial encounter; Y93.89 Activity, other specified; Y92.89 Other specified places as the place of occurrence of the external cause; Y99.8 Other external cause status
CPT/HCPCS: 70450; A4663; J1170; J2405

== ENCOUNTER 2018-01-02 07:04 | Inpatient (IN) | payer OTHER ==
[~2018-01-02] VITALS: Ht 170.2 cm; Wt 70.3 kg
[2018-01-02] MEDS ORDERED: HYDROMORPHONE 1 MG/1 ML DISP.SYRIN IV ONE (08:15)
[2018-01-02] MEDS ORDERED: IV NORMAL SALINE 1000 ML BAG IV ONE (08:15)
[2018-01-02] MEDS ORDERED: ONDANSETRON 4 MG/2 ML VIAL IV ONE (08:15)
[2018-01-02] MEDS ORDERED: HYDROMORPHONE 2 MG/1 ML DISP.SYRIN ONE (08:20)
[2018-01-02] MEDS ORDERED: ONDANSETRON 4 MG/2 ML VIAL ONE ×2 (08:20→09:30)
[2018-01-02 08:48] LABS: BASOPHILS % (AUTO) 0.3 % (0.0-2.0); EOSINOPHILS % (AUTO) 0.3 % (0.0-7.0); HEMOGLOBIN 15.2 g/dL (12.5-16.3); LYMPHOCYTES # (AUTO) 0.3 K/uL (20.0-40.0); LYMPHOCYTES % (AUTO) 4.2 % (20.5-51.5); MEAN CORPUSCULAR HEMOGLOBIN 29.1 uug (23.8-33.4); MEAN CORPUSCULAR HGB CONC 36 g/dL (32.5-36.3); MEAN CORPUSCULAR VOLUME 80.3 fL (73.0-96.2); MONOCYTES # (AUTO) 0.3 K/uL (2.0-10.0); MONOCYTES % (AUTO) 3.7 % (0.0-11.0); NEUTROPHILS # (AUTO) 7.2 K/uL (1.8-8.9); NEUTROPHILS % (AUTO) 91.5 % (38.5-71.5); PLATELET COUNT (AUTO) 203 K/uL (152-348); RED BLOOD CELL COUNT(AUTO) 5.23 MIL/uL (4.06-5.63); WHITE BLOOD COUNT (AUTO) 7.9 K/uL (3.6-10.2)
[2018-01-02 08:53] LABS: CREATININE 1.3 mg/dL (0.6-1.3); POTASSIUM 3.8 mmol/L (3.5-5.1)
[2018-01-02 08:58] LABS: BILIRUBIN,DIRECT 0.4 mg/dL (0.0-0.2); BILIRUBIN,TOTAL 1.3 mg/dL (0.2-1.0)
[2018-01-02 09:23] LABS: *BLOOD, URINE NEGATIVE (NEGATIVE); *CLARITY,URINE SLIGHTLY CLOUDY (CLEAR); *KETONES,URINE 3+ (NEGATIVE); *PROTEIN,URINE 1+ (NEGATIVE); *UROBILINOGEN,URINE >=8.0 E.U./dl (NORMAL); LEUKOCYTE ESTERASE ,URINE NEGATIVE (NEGATIVE); NITRITE, URINE NEGATIVE (NEGATIVE); UGLUCOSE NEGATIVE (NEGATIVE)
[2018-01-02 09:30] LABS: *BILIRUBIN,URIN NEGATIVE (NEGATIVE)
[2018-01-02] MEDS ORDERED: PANTOPRAZOLE SODIUM 40 MG VIAL IV ONE (09:30)
[2018-01-02] MEDS ORDERED: PANTOPRAZOLE SODIUM 40 MG VIAL ONE (09:30)
[2018-01-02] MEDS ORDERED: ONDANSETRON IV *ER 4 MG/2 ML VIAL IV ONE (09:30)
[2018-01-02 09:31] LABS: *COLOR,URINE YELLOW/ORANGE (YELLOW)
[2018-01-02 09:37] LABS: BACTERIA,URINE NONE SEEN /HPF (NONE SEEN); RBC,URINE 0-3 /HPF (0-3)
[2018-01-02 09:38] LABS: SQUAMOUS EPITHELIAL CELL,UR FEW /HPF (NONE SEEN); URINE AMORPHOUS PHOSPHATES MODERATE /HPF
[2018-01-02] MEDS ORDERED: ZOLPIDEM 5 MG TABLET PO PRN (11:15)
[2018-01-02] MEDS ORDERED: IV NS 1000 ML 1,000 ML IV ONE (11:15)
[2018-01-02] MEDS ORDERED: Z GUARD REMEDY PASTE 57 GM TUBE TOP PRN (11:15)
[2018-01-02] MEDS ORDERED: LORAZEPAM 2 MG/1 ML VIAL IV PRN (11:15)
[2018-01-02] MEDS ORDERED: ACETAMINOPHEN 325 MG TABLET PO PRN (11:15)
[2018-01-02] MEDS ORDERED: MORPHINE SULFATE 2 MG/1 ML DISP.SYRIN IV PRN (11:15)
[2018-01-02 11:19] VITALS: BP 128/71
[2018-01-02] MEDS: IV D5 1/2 NS 1000 ML 1,000 ML IV PRN ×2 (13:23→22:10)
[2018-01-02 15:00] VITALS: BP 120/70
[2018-01-02 19:00] VITALS: BP 121/78
[2018-01-02] MEDS: MORPHINE SULFATE 4 MG/1 ML DISP.SYRIN IV PRN (21:05)
[2018-01-02] MEDS: ONDANSETRON 4 MG/2 ML VIAL IV PRN (22:09)
[2018-01-02 23:58] LABS: *AMPHETAMINE, URINE NEGATIVE (NEGATIVE); *BARBITURATE, URINE NEGATIVE (NEGATIVE); *CANNABINOID, URINE POSITIVE (NEGATIVE); *COCCAINE, URINE NEGATIVE (NEGATIVE); *OPIATE, URINE POSITIVE (NEGATIVE); *PHENCYCLIDINE SCREEN,URINE NEGATIVE (NEGATIVE)
[2018-01-03 04:27] VITALS: BP 144/96
[2018-01-03 07:49] LABS: BASOPHILS % (AUTO) 0.6 % (0.0-2.0); EOSINOPHILS # (AUTO) 0.1 K/uL (0.0-0.7); EOSINOPHILS % (AUTO) 2.9 % (0.0-7.0); HEMATOCRIT 39.8 % (36.7-47.1); HEMOGLOBIN 13.9 g/dL (12.5-16.3); LYMPHOCYTES # (AUTO) 1.8 K/uL (20.0-40.0); LYMPHOCYTES % (AUTO) 40.8 % (20.5-51.5); MEAN CORPUSCULAR HEMOGLOBIN 28.7 uug (23.8-33.4); MEAN CORPUSCULAR HGB CONC 35 g/dL (32.5-36.3); MEAN CORPUSCULAR VOLUME 82.2 fL (73.0-96.2); MONOCYTES # (AUTO) 0.6 K/uL (2.0-10.0); MONOCYTES % (AUTO) 13.8 % (0.0-11.0); NEUTROPHILS # (AUTO) 1.8 K/uL (1.8-8.9); NEUTROPHILS % (AUTO) 41.9 % (38.5-71.5); PLATELET COUNT (AUTO) 177 K/uL (152-348); RED BLOOD CELL COUNT(AUTO) 4.84 MIL/uL (4.06-5.63); WHITE BLOOD COUNT (AUTO) 4.3 K/uL (3.6-10.2)
[2018-01-03 08:15] LABS: BILIRUBIN,TOTAL 0.7 mg/dL (0.2-1.0); CREATININE 1.2 mg/dL (0.6-1.3); MAGNESIUM 1.7 mg/dL (1.8-2.4); PHOSPHOROUS 3.3 mg/dL (2.5-4.9); POTASSIUM 3.5 mmol/L (3.5-5.1); TOTAL PROTEIN, SERUM 6.3 g/dL (6.4-8.2)
[2018-01-03 08:28] LABS: THYROID STIMULATING HORMONE 2.109 mIU/mL (0.358-3.740)
[2018-01-03] MEDS: IV D5 1/2 NS 1000 ML 1,000 ML IV PRN (08:36)
[2018-01-03] MEDS: MORPHINE SULFATE 4 MG/1 ML DISP.SYRIN IV PRN ×3 (08:41→18:35)
[2018-01-03] MEDS: ONDANSETRON 4 MG/2 ML VIAL IV PRN ×2 (08:41→16:17)
[2018-01-03 11:43] VITALS: BP 120/72
[2018-01-03] MEDS ORDERED: MAGNESIUM OXIDE 400 MG TABLET PO ONE (12:00)
[2018-01-03 15:30] VITALS: BP 138/84
[2018-01-03 19:00] VITALS: BP 158/99
== END 2018-01-03 20:40 | disposition home or self-care (01) | DRG 254 ==
LOC: ER 07:06 → MED 09:58
PROVIDERS: ADMIT Nurse Practitioner Acute Care; ATTEND Nurse Practitioner Acute Care
DX: K31.89 Other diseases of stomach and duodenum (principal); A08.4 Viral intestinal infection, unspecified; E80.6 Other disorders of bilirubin metabolism; R11.2 Nausea with vomiting, unspecified; T40.7X5A Adverse effect of cannabis (derivatives), initial encounter; Y92.009 Unspecified place in unspecified non-institutional (private) residence as the place of occurrence of the external cause; G47.00 Insomnia, unspecified; Z87.820 Personal history of traumatic brain injury; R74.0 Nonspecific elevation of levels of transaminase and lactic acid dehydrogenase [LDH]; R82.4 Acetonuria; Z87.19 Personal history of other diseases of the digestive system
CPT/HCPCS: 36415; 80307; 83690; 83735; 84100; 84443; 85025; A4663; C1758; C9113; J1170; J2270; J2405; J3490; J7030

== ENCOUNTER 2018-05-19 09:54 | Emergency (ER) | payer OTHER ==
[~2018-05-19] VITALS: Ht 170.2 cm; Wt 70.3 kg
[2018-05-19] MEDS ORDERED: DIPH25CA83 PO (09:59)
--- NOTE | 2018-05-19 10:17 | NUR ---
Dr Morrison is at bedside doing the MSE, pending orders at this moment.
[2018-05-19] MEDS ORDERED: KETOROLAC TROMETHAMINE 15 MG INJ ONE (10:24)
[2018-05-19] MEDS ORDERED: METOCLOPRAMIDE HCL 10 MG/2 ML VIAL ONE (10:25)
[2018-05-19] MEDS ORDERED: IV NORMAL SALINE 1000 ML BAG IV ONE (10:30)
[2018-05-19] MEDS ORDERED: KETOROLAC TROMETHAMINE 15 MG INJ IV ONE (10:30)
[2018-05-19] MEDS ORDERED: METOCLOPRAMIDE HCL 10 MG/2 ML VIAL IV ONE (10:30)
[2018-05-19 10:38] LABS: BASOPHILS % (AUTO) 1.2 % (0.0-2.0); EOSINOPHILS # (AUTO) 0.4 K/uL (0.0-0.7); EOSINOPHILS % (AUTO) 11.6 % (0.0-7.0); HEMATOCRIT 40.6 % (36.7-47.1); HEMOGLOBIN 13.9 g/dL (12.5-16.3); LYMPHOCYTES # (AUTO) 1.1 K/uL (20.0-40.0); LYMPHOCYTES % (AUTO) 31.9 % (20.5-51.5); MEAN CORPUSCULAR HEMOGLOBIN 28.9 uug (23.8-33.4); MEAN CORPUSCULAR HGB CONC 34 g/dL (32.5-36.3); MEAN CORPUSCULAR VOLUME 84.2 fL (73.0-96.2); MONOCYTES # (AUTO) 0.7 K/uL (2.0-10.0); MONOCYTES % (AUTO) 21.9 % (0.0-11.0); NEUTROPHILS # (AUTO) 1.1 K/uL (1.8-8.9); NEUTROPHILS % (AUTO) 33.4 % (38.5-71.5); PLATELET COUNT (AUTO) 171 K/uL (152-348); RED BLOOD CELL COUNT(AUTO) 4.82 MIL/uL (4.06-5.63); WHITE BLOOD COUNT (AUTO) 3.3 K/uL (3.6-10.2)
[2018-05-19 10:45] LABS: CREATININE 1.1 mg/dL (0.6-1.3); POTASSIUM 4.2 mmol/L (3.5-5.1)
[2018-05-19 10:49] LABS: EOSINOPHILS % (MANUAL) 13 % (0-8); LYMPHOCYTES % (MANUAL) 30 % (20-40); MONOCYTES % (MANUAL) 19 % (2-10); NEUTROPHILS % (MANUAL) 38 % (42-75)
[2018-05-19 10:50] LABS: BILIRUBIN,DIRECT 0.1 mg/dL (0.0-0.2); BILIRUBIN,TOTAL 0.4 mg/dL (0.2-1.0); TOTAL PROTEIN, SERUM 7.3 g/dL (6.4-8.2)
[2018-05-19] MEDS ORDERED: IOHEXOL 300MG/ML 100 ML INFUS..BTL ONE (10:59)
[2018-05-19] MEDS ORDERED: SWABABLE VALVE TRANSFER SET EA MC ONE (10:59)
[2018-05-19] MEDS ORDERED: IV NORMAL SALINE 250 ML IV ONE (10:59)
[2018-05-19] MEDS ORDERED: NORMAL SALINE FLUSH 10 ML DISP.SYRIN ONE (10:59)
--- NOTE | 2018-05-19 12:00 | NUR ---
Patient is resting comfortably in bed while watching bedside TV. PATIENT IS PAIN FREE AT THIS TIME. Girlfriend is at bedside.
--- NOTE | 2018-05-19 12:27 | NUR ---
IV removed. Catheter intact and site benign. Pressure and 4x4 gauze applied to site. No bleeding noted. Patient discharged to home in stable conditon. Written and verbal after care instructions given to patient and girlfriend. Patient and girlfriend verbalized understanding of instructions.
== END 2018-05-19 12:34 | disposition home or self-care (01) ==
LOC: ER 09:54
DX: R10.13 Epigastric pain (principal); F17.200 Nicotine dependence, unspecified, uncomplicated; F12.10 Cannabis abuse, uncomplicated; Z90.49 Acquired absence of other specified parts of digestive tract
CPT/HCPCS: 36415; 74177; 80048; 80076; 83690; 84484; 85025; 85730; 96374; 96375; 99285; J1885; J2765; Q9967; 70030-TC; A4663; J3490; J7030; J7050

== ENCOUNTER 2018-09-22 00:46 | Emergency (ER) | payer OTHER ==
[~2018-09-22] VITALS: Ht 172.7 cm; Wt 74.8 kg
[~2018-09-22 00:46] MED LIST changes: -ACET-2154 PO; +DIPH25CA83 PO
--- NOTE | 2018-09-22 00:58 | NUR ---
Pt ambulates to ER with c/o intermittent abd pain + nausea x 4 hrs. Pt states he had 1 episode of vomiting. No diarrhea/constipation. No chest pain/sob. AAOx4. Will ctm. Pt's girlfriend at bedside.
[2018-09-22] MEDS: IV NORMAL SALINE 1000 ML BAG IV ONE (01:15)
[2018-09-22] MEDS ORDERED: HYDROMORPHONE 1 MG/1 ML DISP.SYRIN ONE ×3 (01:15→02:06)
[2018-09-22] MEDS ORDERED: ONDANSETRON 4 MG/2 ML VIAL ONE ×3 (01:15→02:06)
[2018-09-22] MEDS: ONDANSETRON 4 MG/2 ML VIAL IV ONE (01:18)
[2018-09-22] MEDS: HYDROMORPHONE 1 MG/1 ML DISP.SYRIN IV ONE ×3 (01:20→02:09)
[2018-09-22 01:24] LABS: BASOPHILS % (AUTO) 0.6 % (0.0-2.0); CREATININE 0.9 mg/dL (0.6-1.3); EOSINOPHILS # (AUTO) 0.4 K/uL (0.0-0.7); EOSINOPHILS % (AUTO) 8.9 % (0.0-7.0); HEMATOCRIT 38.3 % (36.7-47.1); LYMPHOCYTES # (AUTO) 1.4 K/uL (20.0-40.0); LYMPHOCYTES % (AUTO) 32.7 % (20.5-51.5); MEAN CORPUSCULAR HEMOGLOBIN 27.9 uug (23.8-33.4); MEAN CORPUSCULAR HGB CONC 34 g/dL (32.5-36.3); MEAN CORPUSCULAR VOLUME 82.2 fL (73.0-96.2); MONOCYTES # (AUTO) 0.7 K/uL (2.0-10.0); MONOCYTES % (AUTO) 16.9 % (0.0-11.0); NEUTROPHILS # (AUTO) 1.7 K/uL (1.8-8.9); NEUTROPHILS % (AUTO) 40.9 % (38.5-71.5); PLATELET COUNT (AUTO) 181 K/uL (152-348); POTASSIUM 4.1 mmol/L (3.5-5.1); RED BLOOD CELL COUNT(AUTO) 4.66 MIL/uL (4.06-5.63); WHITE BLOOD COUNT (AUTO) 4.3 K/uL (3.6-10.2)
[2018-09-22 01:42] LABS: BILIRUBIN,DIRECT 0.1 mg/dL (0.0-0.2); BILIRUBIN,TOTAL 0.3 mg/dL (0.2-1.0); TOTAL PROTEIN, SERUM 7.6 g/dL (6.4-8.2)
[2018-09-22] MEDS: ONDANSETRON IV *ER 4 MG/2 ML VIAL IV ONE ×2 (01:48→02:09)
--- NOTE | 2018-09-22 01:58 | NUR ---
Pt still in pain, notified. Girlfriend at bedside. Pt's girlfriend will drive pt home.
--- NOTE | 2018-09-22 02:20 | NUR ---
IV removed. Catheter intact and site benign. Pressure and 4x4 gauze applied to site. No bleeding noted.
--- NOTE | 2018-09-22 02:25 | NUR ---
Patient discharged to home in stable conditon. Written and verbal after care instructions given. Patient verbalizes understanding of instructions. Pt ambulated out of ER in stable gait with girlfriend who will drive him home. All belongings w pt. VSS. NAD noted. Pt states he feels better.
[2018-09-22 02:27] VITALS: BP 118/76
[2018-09-22 06:20] LABS: BAND % (MANUAL) 4 % (0-10); EOSINOPHILS % (MANUAL) 4 % (0-8); LYMPHOCYTES % (MANUAL) 42 % (20-40); MONOCYTES % (MANUAL) 11 % (2-10); NEUTROPHILS % (MANUAL) 39 % (42-75)
== END 2018-09-22 02:28 | disposition home or self-care (01) ==
LOC: ER 00:48
DX: R10.13 Epigastric pain (principal); R11.2 Nausea with vomiting, unspecified; F12.10 Cannabis abuse, uncomplicated; F17.200 Nicotine dependence, unspecified, uncomplicated; Z79.899 Other long term (current) drug therapy; Z90.49 Acquired absence of other specified parts of digestive tract
CPT/HCPCS: 36415; 80048; 80076; 83690; 85025; 96361; 96374; 96375; 96376; 99283; J1170 ×3; J2405 ×3; A4663; J7030

== ENCOUNTER 2019-03-12 19:21 | Emergency (ER) | payer OTHER ==
[~2019-03-12] VITALS: Ht 170.2 cm; Wt 68.0 kg
[2019-03-12] MEDS ORDERED: LORAZEPAM 2 MG/1 ML VIAL IV ONE (19:45)
[2019-03-12] MEDS ORDERED: IV NORMAL SALINE 1000 ML BAG IV ONE (19:45)
[2019-03-12] MEDS ORDERED: ONDANSETRON 4 MG/2 ML VIAL IV ONE (19:45)
[2019-03-12] MEDS ORDERED: HYDROMORPHONE 1 MG/1 ML DISP.SYRIN IV ONE (19:45)
[2019-03-12 20:01] LABS: BASOPHILS % (AUTO) 0.3 % (0.0-2.0); EOSINOPHILS % (AUTO) 0.6 % (0.0-7.0); HEMATOCRIT 40.4 % (36.7-47.1); HEMOGLOBIN 13.9 g/dL (12.5-16.3); LYMPHOCYTES # (AUTO) 0.4 K/uL (20.0-40.0); LYMPHOCYTES % (AUTO) 6.3 % (20.5-51.5); MEAN CORPUSCULAR HEMOGLOBIN 29.2 uug (23.8-33.4); MEAN CORPUSCULAR HGB CONC 35 g/dL (32.5-36.3); MEAN CORPUSCULAR VOLUME 84.5 fL (73.0-96.2); MONOCYTES # (AUTO) 0.8 K/uL (2.0-10.0); MONOCYTES % (AUTO) 11.1 % (0.0-11.0); NEUTROPHILS # (AUTO) 5.6 K/uL (1.8-8.9); NEUTROPHILS % (AUTO) 81.7 % (38.5-71.5); PLATELET COUNT (AUTO) 192 K/uL (152-348); RED BLOOD CELL COUNT(AUTO) 4.78 MIL/uL (4.06-5.63); WHITE BLOOD COUNT (AUTO) 6.9 K/uL (3.6-10.2)
[2019-03-12 20:10] LABS: CREATININE 1.2 mg/dL (0.6-1.3); POTASSIUM 3.7 mmol/L (3.5-5.1)
[2019-03-12 20:16] LABS: BILIRUBIN,DIRECT 0.3 mg/dL (0.0-0.2); BILIRUBIN,TOTAL 0.7 mg/dL (0.2-1.0); TOTAL PROTEIN, SERUM 7.9 g/dL (6.4-8.2)
[2019-03-12] MEDS ORDERED: ONDANSETRON 4 MG/2 ML VIAL ONE (20:53)
[2019-03-12] MEDS ORDERED: HYDROMORPHONE 1 MG/1 ML DISP.SYRIN ONE (20:54)
[2019-03-12] MEDS ORDERED: LORAZEPAM 2 MG/1 ML VIAL ONE (20:56)
--- NOTE | 2019-03-12 21:55 | NUR ---
PT RECIEVED AWAKE ALERT AND ORIENTED X3 . PT VOMITING AND COMPLAINING ABDOMENAL PAIN PT MEDICATED WITH DILUADID AND ATIVAN IV STATED . NORMAL SALINE STATED A BAG NORMAL SALINE STARTED PT RECPONDED TO IV AND FELL ASLEEP . PT STILL SLEEPING .
[2019-03-13 01:22] LABS: *BLOOD, URINE NEGATIVE (NEGATIVE); *CLARITY,URINE CLEAR (CLEAR); *COLOR,URINE YELLOW (YELLOW); *KETONES,URINE 3+ (NEGATIVE); LEUKOCYTE ESTERASE ,URINE NEGATIVE (NEGATIVE); NITRITE, URINE NEGATIVE (NEGATIVE); PH,URINE 5.5 (5.0-8.0); UGLUCOSE NEGATIVE (NEGATIVE)
[2019-03-13 01:25] LABS: *BILIRUBIN,URIN 1+ (NEGATIVE)
--- NOTE | 2019-03-13 01:32 | NUR ---
PT,S DISHARGE INSTRCUTION GIVEN . PT IS PAIN FREE . PT WAITING FOR HIS BROTHER TO PICK HIM UP .
[2019-03-13 01:46] LABS: BACTERIA,URINE 0 /HPF (NONE SEEN); MUCUS,URINE FEW /LPF (0-FEW); SQUAMOUS EPITHELIAL CELL,UR FEW /HPF (NONE SEEN); WBC,URINE 0-3 /HPF (0-3)
--- NOTE | 2019-03-13 01:50 | NUR ---
PT DISCHARGE HOME . DISCHARGE INSTRUCTION GIVEN . PT PICKED UP WITH BROTHER . PT SAID THAT IF HE CONTINUE TO FEEL NEASOUS TOMORROW ,HE WILL RETURN TO THE EMERGENCY ROOM .
[2019-03-13 02:15] VITALS: BP 109/72
== END 2019-03-13 02:18 | disposition home or self-care (01) ==
LOC: ER 19:21
DX: G43.A0 Cyclical vomiting, in migraine, not intractable (principal); R10.84 Generalized abdominal pain; F12.10 Cannabis abuse, uncomplicated; F17.200 Nicotine dependence, unspecified, uncomplicated; Z90.49 Acquired absence of other specified parts of digestive tract; Z79.899 Other long term (current) drug therapy
CPT/HCPCS: 36415; 71045; 74176; 80048; 80076; 81000; 81001; 83690; 85025; 93005; 96361; 96374; 96375; 99284; J1170; J2060; J2405; A4663

== ENCOUNTER 2019-03-13 08:18 | Emergency (ER) | payer OTHER ==
[~2019-03-13] VITALS: Ht 170.2 cm; Wt 68.0 kg
[2019-03-13] MEDS ORDERED: IV NORMAL SALINE 1000 ML BAG IV ONE (08:30)
[2019-03-13] MEDS ORDERED: ONDANSETRON 4 MG/2 ML VIAL IV ONE (08:30)
[2019-03-13] MEDS ORDERED: KETOROLAC TROMETHAMINE 15 MG INJ IVP ONE (08:30)
[2019-03-13] MEDS ORDERED: FAMOTIDINE. 20 MG/2 ML VIAL IV ONE ×2 (08:30→09:00)
[2019-03-13 08:51] LABS: BASOPHILS % (AUTO) 0.1 % (0.0-2.0); HEMATOCRIT 40.1 % (36.7-47.1); HEMOGLOBIN 13.9 g/dL (12.5-16.3); LYMPHOCYTES # (AUTO) 0.2 K/uL (20.0-40.0); LYMPHOCYTES % (AUTO) 4.5 % (20.5-51.5); MEAN CORPUSCULAR HEMOGLOBIN 29.5 uug (23.8-33.4); MEAN CORPUSCULAR HGB CONC 35 g/dL (32.5-36.3); MEAN CORPUSCULAR VOLUME 85.4 fL (73.0-96.2); MONOCYTES # (AUTO) 0.2 K/uL (2.0-10.0); MONOCYTES % (AUTO) 4.1 % (0.0-11.0); NEUTROPHILS # (AUTO) 4.4 K/uL (1.8-8.9); NEUTROPHILS % (AUTO) 91.3 % (38.5-71.5); PLATELET COUNT (AUTO) 185 K/uL (152-348); WHITE BLOOD COUNT (AUTO) 4.8 K/uL (3.6-10.2)
[2019-03-13 09:00] LABS: CREATININE 1.2 mg/dL (0.6-1.3); POTASSIUM 4.3 mmol/L (3.5-5.1)
[2019-03-13] MEDS ORDERED: ONDANSETRON 4 MG/2 ML VIAL ONE (09:00)
[2019-03-13] MEDS ORDERED: KETOROLAC TROMETHAMINE 30 MG INJ ONE (09:00)
[2019-03-13 09:15] LABS: BILIRUBIN,DIRECT 0.2 mg/dL (0.0-0.2); BILIRUBIN,TOTAL 0.6 mg/dL (0.2-1.0); TOTAL PROTEIN, SERUM 7.9 g/dL (6.4-8.2)
[2019-03-13] MEDS ORDERED: MORPHINE SULFATE 4 MG/1 ML DISP.SYRIN IV ONE (09:45)
[2019-03-13] MEDS ORDERED: MORPHINE SULFATE 4 MG/1 ML DISP.SYRIN ONE (09:46)
--- NOTE | 2019-03-13 10:14 | NUR ---
Patient discharged to home in stable conditon. Written and verbal after care instructions given. Patient verbalizes understanding of instructions.PT DENIES PAIN OR NAUSEA AT THIS POINT. PT BROTHER HERE TO TAKE THE PT HOME.
[2019-03-13 10:15] VITALS: BP 131/79
== END 2019-03-13 10:16 | disposition home or self-care (01) ==
LOC: ER 08:18
DX: R10.13 Epigastric pain (principal); R11.2 Nausea with vomiting, unspecified; F17.200 Nicotine dependence, unspecified, uncomplicated; F12.10 Cannabis abuse, uncomplicated; Z90.49 Acquired absence of other specified parts of digestive tract; Z79.899 Other long term (current) drug therapy
CPT/HCPCS: 36415; 80048; 80076; 83690; 85025; 96361; 96374; 96375; 99283; J1885; J2270; J2405; J3490; A4663; J7030

== ENCOUNTER 2019-05-20 08:53 | Emergency (ER) | payer OTHER ==
[~2019-05-20] VITALS: Ht 172.7 cm; Wt 68.0 kg
--- NOTE | 2019-05-20 09:14 | NUR ---
Pt ambulating with steady gait. A&O x4. c/o abd pain since this morning per pt. 8/10 on the pain scale. pt states pain is sharp mostly on lower abdomen. pt noted vomiting x1. pt also states having diarrhea since this am. Breathing even and unlabored. Denies any SOB. speech is clear and able to make needs known / follow commands
--- NOTE | 2019-05-20 09:20 | NUR ---
ERMD at bedside for MSE
[2019-05-20] MEDS ORDERED: METOCLOPRAMIDE HCL 10 MG/2 ML VIAL IV ONE (09:30)
[2019-05-20] MEDS ORDERED: ONDANSETRON 4 MG/2 ML VIAL IV ONE (09:30)
[2019-05-20] MEDS ORDERED: diphenhydrAMINE 50 MG/1 ML VIAL IV ONE (09:30)
[2019-05-20] MEDS ORDERED: KETOROLAC TROMETHAMINE 15 MG INJ IVP ONE (09:30)
[2019-05-20] MEDS ORDERED: IV NORMAL SALINE 1000 ML BAG IV ONE (09:30)
[2019-05-20 09:45] LABS: BASOPHILS % (AUTO) 0.6 % (0.0-2.0); EOSINOPHILS # (AUTO) 0.2 K/uL (0.0-0.7); EOSINOPHILS % (AUTO) 3.8 % (0.0-7.0); LYMPHOCYTES # (AUTO) 1.3 K/uL (20.0-40.0); LYMPHOCYTES % (AUTO) 30.1 % (20.5-51.5); MEAN CORPUSCULAR HEMOGLOBIN 29.4 uug (23.8-33.4); MEAN CORPUSCULAR HGB CONC 34 g/dL (32.5-36.3); MEAN CORPUSCULAR VOLUME 86.3 fL (73.0-96.2); MONOCYTES # (AUTO) 0.6 K/uL (2.0-10.0); MONOCYTES % (AUTO) 13.4 % (0.0-11.0); NEUTROPHILS # (AUTO) 2.2 K/uL (1.8-8.9); NEUTROPHILS % (AUTO) 52.1 % (38.5-71.5); PLATELET COUNT (AUTO) 202 K/uL (152-348); WHITE BLOOD COUNT (AUTO) 4.3 K/uL (3.6-10.2)
[2019-05-20] MEDS ORDERED: diphenhydrAMINE 50 MG/1 ML VIAL ONE (09:45)
[2019-05-20] MEDS ORDERED: ONDANSETRON 4 MG/2 ML VIAL ONE (09:45)
[2019-05-20] MEDS ORDERED: KETOROLAC TROMETHAMINE 30 MG INJ ONE (09:45)
[2019-05-20] MEDS ORDERED: METOCLOPRAMIDE HCL 10 MG/2 ML VIAL ONE (09:45)
[2019-05-20 09:51] LABS: CREATININE 1.1 mg/dL (0.6-1.3); POTASSIUM 3.5 mmol/L (3.5-5.1)
[2019-05-20 09:57] LABS: BILIRUBIN,DIRECT 0.2 mg/dL (0.0-0.2); BILIRUBIN,TOTAL 0.8 mg/dL (0.2-1.0); TOTAL PROTEIN, SERUM 8.1 g/dL (6.4-8.2)
[2019-05-20] MEDS ORDERED: PANTOPRAZOLE SODIUM 40 MG VIAL ONE (10:13)
[2019-05-20] MEDS ORDERED: PANTOPRAZOLE SODIUM 40 MG VIAL IV ONE (10:15)
--- NOTE | 2019-05-20 11:00 | NUR ---
pt in bed sleeping but easily arousable. friend at bedside. NAD noted
--- NOTE | 2019-05-20 11:56 | NUR ---
Patient discharged to home in stable conditon. Written and verbal after care instructions given. Patient verbalizes understanding of instructions. pt ambulating with steady gait. IV removed. Catheter intact and site benign. Pressure and 4x4 gauze applied to site. No bleeding noted.
[2019-05-20 12:11] VITALS: BP 122/75
== END 2019-05-20 11:56 | disposition home or self-care (01) ==
LOC: ER 08:53
DX: R11.15 Cyclical vomiting syndrome unrelated to migraine (principal); R19.7 Diarrhea, unspecified; F17.200 Nicotine dependence, unspecified, uncomplicated; F12.10 Cannabis abuse, uncomplicated; Z90.49 Acquired absence of other specified parts of digestive tract; Z79.899 Other long term (current) drug therapy
CPT/HCPCS: 80048; 80076; 83690; 85025; 96361; 96374; 96375; 99283; C9113; J1200; J1885; J2405; J2765; 36415; A4663; J7030

== ENCOUNTER 2019-05-20 21:50 | Emergency (ER) | payer OTHER ==
[~2019-05-20] VITALS: Ht 170.2 cm; Wt 68.0 kg
--- NOTE | 2019-05-20 22:18 | NUR ---
No beds currently available in ER, sent patient back to waiting room.
[2019-05-20 23:27] LABS: BASOPHILS % (AUTO) 0.1 % (0.0-2.0); HEMATOCRIT 41.3 % (36.7-47.1); LYMPHOCYTES # (AUTO) 0.4 K/uL (20.0-40.0); LYMPHOCYTES % (AUTO) 6.9 % (20.5-51.5); MEAN CORPUSCULAR HEMOGLOBIN 28.7 uug (23.8-33.4); MEAN CORPUSCULAR HGB CONC 34 g/dL (32.5-36.3); MEAN CORPUSCULAR VOLUME 84.9 fL (73.0-96.2); MONOCYTES # (AUTO) 0.3 K/uL (2.0-10.0); MONOCYTES % (AUTO) 5.6 % (0.0-11.0); NEUTROPHILS # (AUTO) 5.2 K/uL (1.8-8.9); NEUTROPHILS % (AUTO) 87.4 % (38.5-71.5); PLATELET COUNT (AUTO) 214 K/uL (152-348); RED BLOOD CELL COUNT(AUTO) 4.87 MIL/uL (4.06-5.63); WHITE BLOOD COUNT (AUTO) 5.9 K/uL (3.6-10.2)
[2019-05-20] MEDS ORDERED: DICYCLOMINE HCL 20 MG/2 ML AMPUL IM SCH (23:30)
[2019-05-20] MEDS ORDERED: PROCHLORPERAZINE EDISYLATE 10 MG/2 ML VIAL IM ONE (23:30)
[2019-05-20] MEDS ORDERED: PROCHLORPERAZINE EDISYLATE 10 MG/2 ML VIAL ONE (23:38)
[2019-05-20 23:39] LABS: BILIRUBIN,DIRECT 0.2 mg/dL (0.0-0.2); BILIRUBIN,TOTAL 0.8 mg/dL (0.2-1.0); CREATININE 1.2 mg/dL (0.6-1.3); POTASSIUM 4.4 mmol/L (3.5-5.1); TOTAL PROTEIN, SERUM 8.3 g/dL (6.4-8.2)
[2019-05-21] MEDS ORDERED: DICYCLOMINE HCL LIQ 10 MG/5 ML UDC ONE (00:05)
[2019-05-21] MEDS ORDERED: DICYCLOMINE HCL 20 MG TABLET PO SCH (00:15)
--- NOTE | 2019-05-21 00:24 | NUR ---
Patient discharged to home in stable conditon. Written and verbal after care instructions given. Patient verbalizes understanding of instructions. patient alert and oriente x4. Patient self ambulatory with steady gait. Exit care and personal belongings taken with patient at discharge.
[2019-05-21 00:25] VITALS: BP 128/97
== END 2019-05-21 00:27 | disposition home or self-care (01) ==
LOC: ER 21:52
DX: K92.0 Hematemesis (principal); R19.7 Diarrhea, unspecified; R10.9 Unspecified abdominal pain; F12.10 Cannabis abuse, uncomplicated; Z90.49 Acquired absence of other specified parts of digestive tract; Z79.899 Other long term (current) drug therapy
CPT/HCPCS: 36415; 80048; 80076; 83690; 85025; 96372; 99283; J0780; A4663

== ENCOUNTER 2019-05-21 16:14 | Emergency (ER) | payer OTHER ==
[~2019-05-21] VITALS: Ht 172.7 cm; Wt 68.0 kg
--- NOTE | 2019-05-21 16:29 | NUR ---
Dr Miranda is at bedside. MSE in progress.
[2019-05-21] MEDS ORDERED: ONDANSETRON 4 MG/2 ML VIAL ONE ×2 (16:39→18:15)
[2019-05-21] MEDS ORDERED: HYDROMORPHONE 2 MG/1 ML DISP.SYRIN ONE ×2 (16:39→18:15)
[2019-05-21 16:42] LABS: BASOPHILS % (AUTO) 0.2 % (0.0-2.0); EOSINOPHILS % (AUTO) 0.1 % (0.0-7.0); HEMATOCRIT 41.5 % (36.7-47.1); LYMPHOCYTES # (AUTO) 0.7 K/uL (20.0-40.0); LYMPHOCYTES % (AUTO) 8.7 % (20.5-51.5); MEAN CORPUSCULAR HEMOGLOBIN 28.7 uug (23.8-33.4); MEAN CORPUSCULAR HGB CONC 34 g/dL (32.5-36.3); MEAN CORPUSCULAR VOLUME 85.2 fL (73.0-96.2); MONOCYTES # (AUTO) 0.9 K/uL (2.0-10.0); MONOCYTES % (AUTO) 11.2 % (0.0-11.0); NEUTROPHILS # (AUTO) 6.5 K/uL (1.8-8.9); NEUTROPHILS % (AUTO) 79.8 % (38.5-71.5); PLATELET COUNT (AUTO) 218 K/uL (152-348); RED BLOOD CELL COUNT(AUTO) 4.87 MIL/uL (4.06-5.63); WHITE BLOOD COUNT (AUTO) 8.2 K/uL (3.6-10.2)
[2019-05-21] MEDS ORDERED: HYDROMORPHONE 1 MG/1 ML DISP.SYRIN IV ONE ×2 (16:45→18:00)
[2019-05-21] MEDS ORDERED: ONDANSETRON 4 MG/2 ML VIAL IV ONE ×2 (16:45→18:00)
[2019-05-21] MEDS ORDERED: IV NORMAL SALINE 1000 ML BAG IV ONE (16:45)
[2019-05-21 16:54] LABS: BILIRUBIN,DIRECT 0.2 mg/dL (0.0-0.2); BILIRUBIN,TOTAL 0.8 mg/dL (0.2-1.0); CREATININE 1.3 mg/dL (0.6-1.3); POTASSIUM 3.4 mmol/L (3.5-5.1)
--- NOTE | 2019-05-21 17:55 | NUR ---
Patient said that his pains are getting better but he wants more pain medicines, MD notified.
[2019-05-21 18:22] VITALS: BP 120/70
--- NOTE | 2019-05-21 18:22 | NUR ---
IV removed. Catheter intact and site benign. Pressure and 4x4 gauze applied to site. No bleeding noted. Decreased abdominal pains was expressed by patient. No vomiting was seen while patient was in ER. Patient discharged to home in stable conditon & steady gait. Written and verbal after care instructions given to patient and adult male friend Jr. Patient and friend verbalized understanding and compliance of instructions.
== END 2019-05-21 18:23 | disposition home or self-care (01) ==
LOC: ER 16:19
DX: R11.15 Cyclical vomiting syndrome unrelated to migraine (principal); F12.10 Cannabis abuse, uncomplicated; Z90.49 Acquired absence of other specified parts of digestive tract; Z79.899 Other long term (current) drug therapy
CPT/HCPCS: 36415; 74176; 80048; 80076; 83690; 85025; 96361; 96374; 96375; 99284; J1170 ×2; J2405 ×2; A4663; J7030

== ENCOUNTER 2019-06-01 19:21 | Inpatient (IN) | payer OTHER ==
[~2019-06-01] VITALS: Ht 170.2 cm; Wt 70.3 kg
--- NOTE | 2019-06-01 20:10 | NUR ---
Dr. Canada at bedside for MSE
[2019-06-01 20:25] LABS: BASOPHILS # (AUTO) 0.1 K/uL (0.0-8.0); BASOPHILS % (AUTO) 0.6 % (0.0-2.0); EOSINOPHILS # (AUTO) 0.2 K/uL (0.0-0.7); HEMATOCRIT 43.6 % (36.7-47.1); HEMOGLOBIN 14.8 g/dL (12.5-16.3); LYMPHOCYTES # (AUTO) 1.1 K/uL (20.0-40.0); LYMPHOCYTES % (AUTO) 13.8 % (20.5-51.5); MEAN CORPUSCULAR HEMOGLOBIN 29.7 uug (23.8-33.4); MEAN CORPUSCULAR HGB CONC 34 g/dL (32.5-36.3); MEAN CORPUSCULAR VOLUME 87.9 fL (73.0-96.2); MONOCYTES # (AUTO) 0.6 K/uL (2.0-10.0); MONOCYTES % (AUTO) 7.9 % (0.0-11.0); NEUTROPHILS # (AUTO) 6.1 K/uL (1.8-8.9); NEUTROPHILS % (AUTO) 75.7 % (38.5-71.5); PLATELET COUNT (AUTO) 200 K/uL (152-348); RED BLOOD CELL COUNT(AUTO) 4.96 MIL/uL (4.06-5.63)
[2019-06-01] MEDS ORDERED: MORPHINE SULFATE 4 MG/1 ML DISP.SYRIN ONE ×2 (20:27→22:47)
[2019-06-01] MEDS ORDERED: ONDANSETRON 4 MG/2 ML VIAL ONE ×2 (20:27→22:47)
[2019-06-01] MEDS ORDERED: MORPHINE SULFATE 4 MG/1 ML DISP.SYRIN IV ONE ×2 (20:30→22:45)
[2019-06-01] MEDS ORDERED: IV NORMAL SALINE 1000 ML BAG IV ONE (20:30)
[2019-06-01] MEDS ORDERED: ONDANSETRON 4 MG/2 ML VIAL IV ONE ×2 (20:30→22:45)
[2019-06-01 20:31] LABS: CREATININE 1.1 mg/dL (0.6-1.3)
[2019-06-01 20:43] LABS: BILIRUBIN,DIRECT 0.2 mg/dL (0.0-0.2); BILIRUBIN,TOTAL 0.4 mg/dL (0.2-1.0)
[2019-06-01] MEDS ORDERED: FAMOTIDINE. 20 MG/2 ML VIAL IV ONE ×2 (21:15)
[2019-06-01] MEDS ORDERED: SUCRALFATE 1 G TABLET PO SCH (21:15)
[2019-06-01] MEDS ORDERED: MAG HYDROX/AL HYDROX/SIMETH 30 ML LIQUID UDC ONE (21:27)
[2019-06-01] MEDS ORDERED: MAG HYDROX/AL HYDROX/SIMETH 30 ML LIQUID UDC PO ONE (21:30)
--- NOTE | 2019-06-01 22:23 | NUR ---
patient in bed sleeping but easily arousable. Breathing even and unlabored. NAD noted
[2019-06-01] MEDS ORDERED: ONDA4TAB5 PO (22:52)
[2019-06-01] MEDS ORDERED: OMEP20TA20 PO (22:52)
--- NOTE | 2019-06-01 22:56 | NUR ---
Called [facility] for panel placement
--- NOTE | 2019-06-01 23:06 | NUR ---
Dr. Canada speaking with Nicky Herrmann FOIL OPERATOR
--- NOTE | 2019-06-01 23:20 | NUR ---
Pt. admitted to [facility] , under care of Nicky Herrmann PROPERTY UTILIZATION MANAGER. Belongs List completed
[2019-06-01] MEDS ORDERED: Z GUARD REMEDY PASTE 57 GM TUBE TOP PRN (23:30)
[2019-06-01] MEDS ORDERED: ACETAMINOPHEN 325 MG TABLET PO PRN (23:30)
[2019-06-01] MEDS ORDERED: MAGNESIUM HYDROXIDE 30 ML LIQUID UDC PO PRN (23:30)
--- NOTE | 2019-06-01 23:30 | NUR ---
RECEIVED PATIENT VIA [facility]. PATIENT IS A/O X4. C/O ABDOMINAL PAIN UPON ADMISSION. H/L INTACT AND PATENT, NOTED TO RIGHT AV #20 GAUGE. C/O NAUSEA, BUT NO VOMITING NOTED AT THIS TIME. VS WNL. CALL LIGHT IN REACH. ALL NEEDS ATTENDED. WILL CONTINUE TO MONITOR AND ASSESS.
--- NOTE | 2019-06-01 23:45 | NUR ---
RECEIVED ORDER FOR PATIENT TO HAVE INSERTION OF NGT. PATIENT REFUSED. NOTIFIED ARIE CELIS OF PATIENT REFUSAL. NO NEW ORDERS AT THIS TIME. WILL CONTINUE TO MONITOR AND ASSESS.
[2019-06-01 23:58] VITALS: BP 146/68
[2019-06-02] MEDS: IV NS 1000 ML 1,000 ML IV PRN ×2 (00:03→13:54)
[2019-06-02] MEDS: MORPHINE SULFATE 2 MG/1 ML DISP.SYRIN IV PRN ×5 (01:26→22:57)
[2019-06-02] MEDS: ONDANSETRON 4 MG/2 ML VIAL IV PRN ×3 (01:26→20:09)
[2019-06-02 04:47] VITALS: BP 118/59
[2019-06-02 06:11] LABS: BASOPHILS % (AUTO) 0.3 % (0.0-2.0); EOSINOPHILS % (AUTO) 0.1 % (0.0-7.0); HEMATOCRIT 41.3 % (36.7-47.1); HEMOGLOBIN 13.9 g/dL (12.5-16.3); LYMPHOCYTES # (AUTO) 0.4 K/uL (20.0-40.0); LYMPHOCYTES % (AUTO) 5.3 % (20.5-51.5); MEAN CORPUSCULAR HGB CONC 34 g/dL (32.5-36.3); MONOCYTES # (AUTO) 0.2 K/uL (2.0-10.0); MONOCYTES % (AUTO) 3.2 % (0.0-11.0); NEUTROPHILS # (AUTO) 6.9 K/uL (1.8-8.9); NEUTROPHILS % (AUTO) 91.1 % (38.5-71.5); PLATELET COUNT (AUTO) 194 K/uL (152-348); WHITE BLOOD COUNT (AUTO) 7.6 K/uL (3.6-10.2)
[2019-06-02 06:34] LABS: CARBON DIOXIDE 30 mmol/L (21-32); CHLORIDE 102 mmol/L (98-107); CHOLESTEROL 151 mg/dL (<200); GLUCOSE 121 mg/dL (74-106); HDL CHOLESTEROL 69 mg/dL (40-60); MAGNESIUM 1.7 mg/dL (1.8-2.4); PHOSPHOROUS 3.3 mg/dL (2.5-4.9); POTASSIUM 4.4 mmol/L (3.5-5.1); TRIGLYCERIDES < 15 MG/DL (30-150); UREA NITROGEN, BLOOD 12 mg/dL (7-18)
[2019-06-02 06:44] LABS: THYROID STIMULATING HORMONE 0.657 mIU/mL (0.358-3.740)
--- NOTE | 2019-06-02 06:44 | NUR ---
PATIENT AWAKE IN BED. DENIES PAIN AT THIS TIME. NO RESP. DISTRESS NOTED. IVF INFUSING WELL. VSS. CALL LIGHT IN REACH. ALL NEEDS ATTENDED. WILL CONTINUE TO MONITOR AND ASSESS.
--- NOTE | 2019-06-02 07:00 | NUR ---
Received patient in bed, awake and verbally responsive. No signs of distress noted. No SOB. No complain of Pain/discomfort at this time. R Ac IV site intact and patent. No signs of Infiltration noted. Kept clean and comfortable. Will continue to monitor.
[2019-06-02] MEDS: PANTOPRAZOLE SODIUM 40 MG VIAL IV SCH (08:06)
[2019-06-02 11:18] VITALS: BP 105/58
[2019-06-02] MEDS ORDERED: METO-295 PO (13:23)
[2019-06-02] MEDS ORDERED: DICY20TA11 PO (13:24)
[2019-06-02] MEDS ORDERED: PROC10TA13 PO (13:25)
[2019-06-02] MEDS: MAGNESIUM SULFATE/D5W 100 ML IV SCH ×2 (14:06→15:10)
[2019-06-02 15:29] VITALS: BP 119/71
--- NOTE | 2019-06-02 17:50 | NUR ---
Patient in bed, awake and verbally responsive. No signs of distress noted. No SOB. Pain Medication given as ordered. IVF infusing well on Right AC, No Infiltration noted. Still Awaiting drug Profile Screen result for Blood and urine. Zofran was given for nausea and effective after 30 minutes of Administration. All needs attended. Will endorse to Oncoming Nurse.
--- NOTE | 2019-06-02 19:30 | NUR ---
Received patient lying in bed. AAOx4. In no acute distress. No vomiting at this time. Complained of nausea, will provided Zofran per order. Patient reported lower back pain 2/10 and tolerable at this time. IV site on right AC intact and patent. Needs attended to and met. Safety measure initiated and call oconnell within reached.
[2019-06-02 20:20] VITALS: BP 122/80
[2019-06-03] MEDS: MORPHINE SULFATE 2 MG/1 ML DISP.SYRIN IV PRN ×2 (03:15→08:18)
[2019-06-03] MEDS: ONDANSETRON 4 MG/2 ML VIAL IV PRN ×2 (04:14→11:12)
[2019-06-03 05:26] VITALS: BP 102/60
[2019-06-03] MEDS: IV NS 1000 ML 1,000 ML IV PRN (05:41)
--- NOTE | 2019-06-03 06:07 | NUR ---
AAOx4. In no acute distress. No vomiting episode. Complained of nausea and Zofran PRN given and effective. Morphine PRN per order given for complain of lower back pain and effective. IV site on right AC intact and patent.IVF infusing. Needs attended to and met. Safety measure maintained and call oconnell within reached.
[2019-06-03 06:51] LABS: MAGNESIUM 1.8 mg/dL (1.8-2.4); PHOSPHOROUS 3.1 mg/dL (2.5-4.9)
[2019-06-03 07:05] LABS: BASOPHILS % (AUTO) 0.3 % (0.0-2.0); EOSINOPHILS # (AUTO) 0.1 K/uL (0.0-0.7); EOSINOPHILS % (AUTO) 3.9 % (0.0-7.0); HEMATOCRIT 39.1 % (36.7-47.1); LYMPHOCYTES # (AUTO) 1.2 K/uL (20.0-40.0); LYMPHOCYTES % (AUTO) 34.8 % (20.5-51.5); MEAN CORPUSCULAR HGB CONC 33 g/dL (32.5-36.3); MEAN CORPUSCULAR VOLUME 87.3 fL (73.0-96.2); MONOCYTES # (AUTO) 0.5 K/uL (2.0-10.0); MONOCYTES % (AUTO) 14.3 % (0.0-11.0); NEUTROPHILS # (AUTO) 1.6 K/uL (1.8-8.9); NEUTROPHILS % (AUTO) 46.7 % (38.5-71.5); PLATELET COUNT (AUTO) 171 K/uL (152-348); RED BLOOD CELL COUNT(AUTO) 4.48 MIL/uL (4.06-5.63)
[2019-06-03 07:13] LABS: WHITE BLOOD COUNT (AUTO) 3.4 K/uL (3.6-10.2)
--- NOTE | 2019-06-03 08:00 | NUR ---
PATIENT IN BED AWAKE, AOX4. DENIES SOB OR CHEST PAIN AT THIS TIME. STATED THAT HE HAS ABD/BACK PAIN. MEDICATIONS WILL BE GIVEN ORDERED. RT. AC IV WITH NS AT 75CC/HR RUNNING. INTACT AND FLUSHING WELL. SAFETY AND FALL PREVENTION IN PLACE. BED IN LOW/LOCKED POSITION. CALL LIGHT IN REACH. WILL CONTINUE TO MONITOR.
[2019-06-03] MEDS: PANTOPRAZOLE SODIUM 40 MG VIAL IV SCH (08:18)
[2019-06-03 11:12] VITALS: BP 113/79
[2019-06-03] MEDS ORDERED: BISA-79 PO (13:14)
[2019-06-03] MEDS ORDERED: LACT10SO PO (13:14)
[2019-06-03] MEDS ORDERED: SENN-168 PO (13:14)
[2019-06-03] MEDS ORDERED: POLY17PO4 PO (13:14)
[2019-06-03] MEDS ORDERED: ONDA4TAB5 PO (13:31)
--- NOTE | 2019-06-03 14:30 | NUR ---
Patient discharged to home;self care. Discharge instructions given and went over with patient. rt. ac iv discontinued and arm band removed upon discharge. Prescription given to patient. Patient left in stable condition. he left with the company of Jr his friend who will drive him home and Ariadne walked him to the car.
== END 2019-06-03 14:25 | disposition home or self-care (01) | DRG 249 ==
LOC: ER 19:23 → MEDSURG3 23:16
PROVIDERS: ADMIT Registered Nurse; ATTEND Registered Nurse
DX: R11.15 Cyclical vomiting syndrome unrelated to migraine (principal); E83.42 Hypomagnesemia; F12.988 Cannabis use, unspecified with other cannabis-induced disorder; K59.00 Constipation, unspecified; Z76.5 Malingerer [conscious simulation]; Z87.19 Personal history of other diseases of the digestive system
CPT/HCPCS: 36415; 80307; 83690; 83735; 84100; 84443; 85025; A4663; C9113; G0378; J2270; J2405; J3475; J3490; J7030

== ENCOUNTER 2019-07-09 11:03 | Emergency (ER) | payer OTHER ==
[~2019-07-09] VITALS: Ht 170.2 cm; Wt 68.0 kg
[~2019-07-09 11:03] MED LIST changes: +BISA-79 PO; +DICY20TA11 PO; -DIPH25CA83 PO; +LACT10SO PO; +OMEP20TA20 PO; +ONDA4TAB5 PO; +POLY17PO4 PO; +PROC10TA13 PO; +SENN-168 PO
[2019-07-09] MEDS ORDERED: ONDANSETRON 4 MG/2 ML VIAL IV ONE (11:30)
[2019-07-09] MEDS ORDERED: KETOROLAC TROMETHAMINE 15 MG INJ IVP ONE (11:30)
[2019-07-09] MEDS ORDERED: HALOPERIDOL LACTATE 5 MG/1 ML VIAL IM ONE (11:30)
[2019-07-09] MEDS ORDERED: diphenhydrAMINE 50 MG/1 ML VIAL IV ONE (11:30)
[2019-07-09] MEDS ORDERED: IV NORMAL SALINE 1000 ML BAG IV ONE (11:30)
[2019-07-09] MEDS ORDERED: KETOROLAC TROMETHAMINE 15 MG INJ ONE (11:35)
[2019-07-09] MEDS ORDERED: ONDANSETRON 4 MG/2 ML VIAL ONE (11:35)
[2019-07-09] MEDS ORDERED: diphenhydrAMINE 50 MG/1 ML VIAL ONE (11:35)
[2019-07-09] MEDS ORDERED: HALOPERIDOL LACTATE 5 MG/1 ML VIAL ONE (11:36)
--- NOTE | 2019-07-09 11:48 | NUR ---
PT IS IN ROOM #2B. DR AGUSTIN EVALUATED THE PT.
[2019-07-09 11:53] LABS: BASOPHILS % (AUTO) 0.2 % (0.0-2.0); HEMATOCRIT 44.6 % (36.7-47.1); LYMPHOCYTES # (AUTO) 0.3 K/uL (20.0-40.0); LYMPHOCYTES % (AUTO) 2.2 % (20.5-51.5); MEAN CORPUSCULAR HGB CONC 34 g/dL (32.5-36.3); MEAN CORPUSCULAR VOLUME 86.5 fL (73.0-96.2); MONOCYTES # (AUTO) 0.5 K/uL (2.0-10.0); MONOCYTES % (AUTO) 3.8 % (0.0-11.0); NEUTROPHILS # (AUTO) 11.7 K/uL (1.8-8.9); NEUTROPHILS % (AUTO) 93.8 % (38.5-71.5); PLATELET COUNT (AUTO) 191 K/uL (152-348); RED BLOOD CELL COUNT(AUTO) 5.16 MIL/uL (4.06-5.63); WHITE BLOOD COUNT (AUTO) 12.4 K/uL (3.6-10.2)
[2019-07-09 12:14] LABS: BILIRUBIN,DIRECT 0.3 mg/dL (0.0-0.2); BILIRUBIN,TOTAL 0.8 mg/dL (0.2-1.0); CREATININE 1.3 mg/dL (0.6-1.3); POTASSIUM 4.7 mmol/L (3.5-5.1); TOTAL PROTEIN, SERUM 8.7 g/dL (6.4-8.2)
[2019-07-09 13:04] LABS: *BILIRUBIN,URIN NEGATIVE (NEGATIVE); *BLOOD, URINE NEGATIVE (NEGATIVE); *CLARITY,URINE CLEAR (CLEAR); *COLOR,URINE YELLOW (YELLOW); *KETONES,URINE 2+ (NEGATIVE); *UROBILINOGEN,URINE 0.2 E.U./dl (NORMAL); LEUKOCYTE ESTERASE ,URINE NEGATIVE (NEGATIVE); NITRITE, URINE NEGATIVE (NEGATIVE); PH,URINE 8.5 (5.0-8.0); UGLUCOSE NEGATIVE (NEGATIVE)
[2019-07-09 13:15] LABS: *AMPHETAMINE, URINE NEGATIVE (NEGATIVE); *BARBITURATE, URINE NEGATIVE (NEGATIVE); *CANNABINOID, URINE POSITIVE (NEGATIVE); *COCCAINE, URINE NEGATIVE (NEGATIVE); *OPIATE, URINE NEGATIVE (NEGATIVE); *PHENCYCLIDINE SCREEN,URINE NEGATIVE (NEGATIVE)
--- NOTE | 2019-07-09 13:55 | NUR ---
PT WAS D/C'd TO HOME. D/C INSTRUCTIONS GIVEN TO THE PT.
[2019-07-09 13:56] VITALS: BP 133/81
== END 2019-07-09 13:56 | disposition home or self-care (01) ==
LOC: ER 11:03
DX: F12.988 Cannabis use, unspecified with other cannabis-induced disorder (principal); R10.84 Generalized abdominal pain; R11.10 Vomiting, unspecified; F17.200 Nicotine dependence, unspecified, uncomplicated; Z90.49 Acquired absence of other specified parts of digestive tract; Z79.899 Other long term (current) drug therapy
CPT/HCPCS: 36415; 74176; 80048; 80076; 80307; 81001; 83690; 85025; 96361; 96372; 96374; 96375; 99284; J1200; J1630; J1885; J2405; A4663; J7030

== ENCOUNTER 2019-07-10 05:00 | Emergency (ER) | payer OTHER ==
[~2019-07-10] VITALS: Ht 170.2 cm; Wt 68.0 kg
--- NOTE | 2019-07-10 05:17 | NUR ---
Dr. Miranda at bedside for MSE.
[2019-07-10] MEDS ORDERED: ONDANSETRON 4 MG/2 ML VIAL IV ONE ×2 (05:30→06:00)
[2019-07-10] MEDS ORDERED: PANTOPRAZOLE SODIUM 40 MG VIAL ONE (05:30)
[2019-07-10] MEDS ORDERED: HYDROMORPHONE 1 MG/1 ML DISP.SYRIN IV ONE ×2 (05:30→06:00)
[2019-07-10] MEDS ORDERED: HYDROMORPHONE 2 MG/1 ML DISP.SYRIN ONE (05:30)
[2019-07-10] MEDS ORDERED: IV NORMAL SALINE 1000 ML BAG IV ONE (05:30)
[2019-07-10] MEDS ORDERED: PANTOPRAZOLE SODIUM 40 MG VIAL IV ONE (05:30)
[2019-07-10] MEDS ORDERED: ONDANSETRON 4 MG/2 ML VIAL ONE ×2 (05:30→06:03)
[2019-07-10 05:57] LABS: BASOPHILS % (AUTO) 0.2 % (0.0-2.0); EOSINOPHILS % (AUTO) 0.1 % (0.0-7.0); HEMATOCRIT 42.4 % (36.7-47.1); HEMOGLOBIN 14.6 g/dL (12.5-16.3); LYMPHOCYTES # (AUTO) 0.5 K/uL (20.0-40.0); LYMPHOCYTES % (AUTO) 9.6 % (20.5-51.5); MEAN CORPUSCULAR HEMOGLOBIN 28.9 uug (23.8-33.4); MEAN CORPUSCULAR HGB CONC 34 g/dL (32.5-36.3); MEAN CORPUSCULAR VOLUME 84.1 fL (73.0-96.2); MONOCYTES # (AUTO) 0.7 K/uL (2.0-10.0); NEUTROPHILS # (AUTO) 4.3 K/uL (1.8-8.9); NEUTROPHILS % (AUTO) 77.1 % (38.5-71.5); PLATELET COUNT (AUTO) 208 K/uL (152-348); RED BLOOD CELL COUNT(AUTO) 5.04 MIL/uL (4.06-5.63); WHITE BLOOD COUNT (AUTO) 5.6 K/uL (3.6-10.2)
[2019-07-10] MEDS ORDERED: HYDROMORPHONE 1 MG/1 ML DISP.SYRIN ONE (06:03)
[2019-07-10 06:22] LABS: CREATININE 1.3 mg/dL (0.6-1.3); POTASSIUM 3.3 mmol/L (3.5-5.1)
[2019-07-10 06:27] LABS: BILIRUBIN,DIRECT 0.2 mg/dL (0.0-0.2); BILIRUBIN,TOTAL 0.7 mg/dL (0.2-1.0); TOTAL PROTEIN, SERUM 8.3 g/dL (6.4-8.2)
--- NOTE | 2019-07-10 06:36 | NUR ---
Patient discharged to home in stable conditon. Written and verbal after care instructions given. Patient verbalizes understanding of instructions. PT ambulated out of ER with steady gait, no acute signs of distress, VSS, all belongings taken, IV site discontinued, instructed not to drive, states going to call for uber.
[2019-07-10 06:38] VITALS: BP 145/100
== END 2019-07-10 06:38 | disposition home or self-care (01) ==
LOC: ER 05:00
DX: R10.9 Unspecified abdominal pain (principal); R11.2 Nausea with vomiting, unspecified; F17.200 Nicotine dependence, unspecified, uncomplicated; F12.10 Cannabis abuse, uncomplicated; Z90.49 Acquired absence of other specified parts of digestive tract; Z79.899 Other long term (current) drug therapy; Z79.2 Long term (current) use of antibiotics
CPT/HCPCS: 36415; 80048; 80076; 83690; 85025; 96374; 96375; 96376; 99283; C9113; J1170 ×2; J2405 ×2; A4663; J7030

== ENCOUNTER 2019-10-05 09:43 | Emergency (ER) | payer OTHER ==
[~2019-10-05] VITALS: Ht 170.2 cm; Wt 68.0 kg
[~2019-10-05 09:43] MED LIST changes: -SENN-168 PO; +SENN-261 PO
[2019-10-05] MEDS ORDERED: ONDANSETRON 4 MG/2 ML VIAL IV ONE ×2 (10:00→10:45)
[2019-10-05] MEDS ORDERED: IV NORMAL SALINE 1000 ML BAG IV ONE (10:00)
[2019-10-05] MEDS ORDERED: HYDROMORPHONE 1 MG/1 ML DISP.SYRIN IV ONE ×2 (10:00→10:45)
[2019-10-05] MEDS ORDERED: HYDROMORPHONE 1 MG/1 ML DISP.SYRIN ONE ×2 (10:10→10:53)
[2019-10-05] MEDS ORDERED: ONDANSETRON 4 MG/2 ML VIAL ONE ×2 (10:10→10:53)
--- NOTE | 2019-10-05 10:14 | NUR ---
PT IS IN ROOM #2B. DR JUAREZ EVALUATED THE PT.
[2019-10-05 10:17] LABS: BASOPHILS % (AUTO) 0.4 % (0.0-2.0); EOSINOPHILS % (AUTO) 0.1 % (0.0-7.0); HEMATOCRIT 44.5 % (36.7-47.1); LYMPHOCYTES # (AUTO) 0.7 K/uL (20.0-40.0); LYMPHOCYTES % (AUTO) 9.7 % (20.5-51.5); MEAN CORPUSCULAR HGB CONC 34 g/dL (32.5-36.3); MEAN CORPUSCULAR VOLUME 86.1 fL (73.0-96.2); MONOCYTES # (AUTO) 0.6 K/uL (2.0-10.0); MONOCYTES % (AUTO) 8.1 % (0.0-11.0); NEUTROPHILS % (AUTO) 81.7 % (38.5-71.5); PLATELET COUNT (AUTO) 194 K/uL (152-348); RED BLOOD CELL COUNT(AUTO) 5.16 MIL/uL (4.06-5.63); WHITE BLOOD COUNT (AUTO) 7.4 K/uL (3.6-10.2)
[2019-10-05 10:28] LABS: CREATININE 1.3 mg/dL (0.6-1.3); POTASSIUM 3.7 mmol/L (3.5-5.1)
[2019-10-05 10:35] LABS: BILIRUBIN,DIRECT 0.1 mg/dL (0.0-0.2); BILIRUBIN,TOTAL 0.5 mg/dL (0.2-1.0)
--- NOTE | 2019-10-05 11:29 | NUR ---
pt was d/c'D to home. d/c instructions given to the pt.
[2019-10-05 11:30] VITALS: BP 127/71
== END 2019-10-05 11:30 | disposition home or self-care (01) ==
LOC: ER 09:43
DX: R11.15 Cyclical vomiting syndrome unrelated to migraine (principal); R10.84 Generalized abdominal pain; F12.10 Cannabis abuse, uncomplicated; Z90.49 Acquired absence of other specified parts of digestive tract; G89.29 Other chronic pain
CPT/HCPCS: 99285; 36415; 71045; 74176; 80048; 80076; 83690; 85025; 96361; 96374; 96375; 96376; J1170 ×2; J2405 ×2; A4663; J7030

== ENCOUNTER 2019-10-05 19:15 | Emergency (ER) | payer OTHER ==
[~2019-10-05] VITALS: Ht 170.2 cm; Wt 70.3 kg
--- NOTE | 2019-10-05 19:25 | NUR ---
Patient ambulating with steady gait. A&O x4. c/o sharp abd pain 9/10 on the pain scale. Patient was seen earlier today for similar symptoms. Patient states that pain has come back. Pain does not radiate per patient. Breathing even and unlabored. No cough or SOB noted. Speech is clear and able to make needs known / follow commands. Denies any distress. Patient states someone will be picking him up. NAD noted at this time
--- NOTE | 2019-10-05 19:35 | NUR ---
Dr. Bai at bedside for MSE
[2019-10-05] MEDS ORDERED: PROCHLORPERAZINE EDISYLATE 10 MG/2 ML VIAL IV ONE (19:45)
[2019-10-05] MEDS ORDERED: diphenhydrAMINE 50 MG/1 ML VIAL IV ONE (19:45)
[2019-10-05] MEDS ORDERED: KETAMINE HCL 500 MG/10 ML INJ IV ONE (19:45)
[2019-10-05] MEDS ORDERED: diphenhydrAMINE 50 MG/1 ML VIAL ONE (19:52)
[2019-10-05] MEDS ORDERED: KETAMINE HCL 500 MG/10 ML INJ ONE (19:53)
[2019-10-05] MEDS ORDERED: PROCHLORPERAZINE EDISYLATE 10 MG/2 ML VIAL ONE (19:53)
[2019-10-05] MEDS ORDERED: HYDROMORPHONE HCL 2 MG TABLET ONE (21:28)
[2019-10-05] MEDS ORDERED: HYDROMORPHONE HCL 2 MG TABLET PO ONE (21:30)
[2019-10-05 21:39] VITALS: BP 115/63
--- NOTE | 2019-10-05 21:39 | NUR ---
IV removed. Catheter intact and site benign. Pressure and 4x4 gauze applied to site. No bleeding noted. Patient discharged to home in stable conditon. Written and verbal after care instructions given. Patient verbalizes understanding of instructions. Patient ambulating with steady gait. Patient's friend outside of ED to take patient home
== END 2019-10-05 21:39 | disposition home or self-care (01) ==
LOC: ER 19:18
DX: R11.15 Cyclical vomiting syndrome unrelated to migraine (principal); R10.84 Generalized abdominal pain; G89.29 Other chronic pain; F12.10 Cannabis abuse, uncomplicated; Z87.820 Personal history of traumatic brain injury
CPT/HCPCS: 99284; 96374; 96375; J0780; J1200; J3490; A4663

== ENCOUNTER 2020-03-04 12:47 | Emergency (ER) | payer OTHER ==
[~2020-03-04] VITALS: Ht 170.2 cm; Wt 70.3 kg
--- NOTE | 2020-03-04 13:17 | NUR ---
Dr Taylor at the bedside for MSE.
[2020-03-04] MEDS ORDERED: IV NORMAL SALINE 1000 ML BAG IV ONE (13:30)
[2020-03-04] MEDS ORDERED: FAMOTIDINE. 20 MG/2 ML VIAL IV ONE ×2 (13:30→13:31)
[2020-03-04] MEDS ORDERED: METOCLOPRAMIDE HCL 10 MG/2 ML VIAL IV ONE (13:30)
[2020-03-04] MEDS ORDERED: METOCLOPRAMIDE HCL 10 MG/2 ML VIAL ONE (13:31)
[2020-03-04 13:33] LABS: BASOPHILS % (AUTO) 0.3 % (0.0-2.0); HEMATOCRIT 43.7 % (36.7-47.1); HEMOGLOBIN 14.8 g/dL (12.5-16.3); LYMPHOCYTES # (AUTO) 0.3 K/uL (20.0-40.0); LYMPHOCYTES % (AUTO) 4.7 % (20.5-51.5); MEAN CORPUSCULAR HEMOGLOBIN 29.5 uug (23.8-33.4); MEAN CORPUSCULAR HGB CONC 34 g/dL (32.5-36.3); MEAN CORPUSCULAR VOLUME 86.9 fL (73.0-96.2); MONOCYTES # (AUTO) 0.6 K/uL (2.0-10.0); MONOCYTES % (AUTO) 8.3 % (0.0-11.0); NEUTROPHILS # (AUTO) 6.3 K/uL (1.8-8.9); NEUTROPHILS % (AUTO) 86.7 % (38.5-71.5); PLATELET COUNT (AUTO) 211 K/uL (152-348); RED BLOOD CELL COUNT(AUTO) 5.02 MIL/uL (4.06-5.63); WHITE BLOOD COUNT (AUTO) 7.2 K/uL (3.6-10.2)
[2020-03-04 13:49] LABS: BILIRUBIN,DIRECT 0.3 mg/dL (0.0-0.2); BILIRUBIN,TOTAL 0.8 mg/dL (0.2-1.0); CREATININE 1.3 mg/dL (0.6-1.3); POTASSIUM 3.8 mmol/L (3.5-5.1)
[2020-03-04] MEDS ORDERED: MORPHINE SULFATE 4 MG/1 ML DISP.SYRIN ONE (13:50)
[2020-03-04] MEDS ORDERED: ONDANSETRON 4 MG/2 ML VIAL ONE (13:50)
[2020-03-04] MEDS ORDERED: ONDANSETRON 4 MG/2 ML VIAL IV ONE (14:00)
[2020-03-04] MEDS ORDERED: MORPHINE SULFATE 4 MG/1 ML DISP.SYRIN IV ONE (14:00)
[2020-03-04] MEDS ORDERED: SWABABLE VALVE TRANSFER SET EA MC ONE (14:04)
[2020-03-04] MEDS ORDERED: IV NORMAL SALINE 250 ML IV ONE (14:04)
[2020-03-04] MEDS ORDERED: IOHEXOL 300MG/ML 100 ML INFUS..BTL ONE (14:04)
--- NOTE | 2020-03-04 14:24 | NUR ---
Pt back from Ct, NAD noted. Resting in bed w/ both eyes closed.
--- NOTE | 2020-03-04 15:01 | NUR ---
IV removed. Catheter intact and site benign. Pressure and 4x4 gauze applied to site. No bleeding noted.
[2020-03-04 15:03] VITALS: BP 111/79
--- NOTE | 2020-03-04 15:05 | NUR ---
Patient discharged to home in stable condition. Written and verbal after care instructions given. Patient verbalizes understanding of instructions. Stressed follow up or return to ER for worsening s/s. Pt left Er w/ steady gait.
== END 2020-03-04 15:05 | disposition home or self-care (01) ==
LOC: ER 12:53
DX: R11.15 Cyclical vomiting syndrome unrelated to migraine (principal); R10.816 Epigastric abdominal tenderness; R10.31 Right lower quadrant pain; F12.10 Cannabis abuse, uncomplicated; G89.29 Other chronic pain; Z87.19 Personal history of other diseases of the digestive system; Z79.899 Other long term (current) drug therapy
CPT/HCPCS: 36415; 74177; 80048; 80076; 83690; 85025; 96361; 96374; 96375; 99285; J2270 ×2; J2405; J2765; J3490; Q9967; A4663; J7030; J7050

== ENCOUNTER 2020-09-20 08:15 | Emergency (ER) | payer OTHER ==
[~2020-09-20] VITALS: Ht 170.2 cm; Wt 68.0 kg
[~2020-09-20 08:15] MED LIST changes: -LACT10SO PO; +LACT10SO3 PO
[2020-09-20] MEDS ORDERED: ONDANSETRON 4 MG/2 ML VIAL IV ONE ×2 (08:30→10:45)
[2020-09-20] MEDS ORDERED: IV NORMAL SALINE 1000 ML BAG IV ONE (08:30)
[2020-09-20 08:34] LABS: BASOPHILS % (AUTO) 0.5 % (0.0-2.0); EOSINOPHILS # (AUTO) 0.1 K/uL (0.0-0.7); EOSINOPHILS % (AUTO) 1.8 % (0.0-7.0); HEMATOCRIT 44.5 % (36.7-47.1); HEMOGLOBIN 15.5 g/dL (12.5-16.3); MEAN CORPUSCULAR HEMOGLOBIN 29.7 uug (23.8-33.4); MEAN CORPUSCULAR HGB CONC 35 g/dL (32.5-36.3); MEAN CORPUSCULAR VOLUME 85.5 fL (73.0-96.2); MONOCYTES # (AUTO) 0.5 K/uL (2.0-10.0); NEUTROPHILS # (AUTO) 4.4 K/uL (1.8-8.9); NEUTROPHILS % (AUTO) 72.7 % (38.5-71.5); PLATELET COUNT (AUTO) 222 K/uL (152-348)
[2020-09-20] MEDS ORDERED: ONDANSETRON 4 MG/2 ML VIAL ONE ×2 (08:39→10:47)
[2020-09-20 08:41] LABS: CREATININE 1.3 mg/dL (0.6-1.3); POTASSIUM 3.8 mmol/L (3.5-5.1)
[2020-09-20 08:47] LABS: BILIRUBIN,DIRECT 0.2 mg/dL (0.0-0.2); BILIRUBIN,TOTAL 0.5 mg/dL (0.2-1.0); TOTAL PROTEIN, SERUM 8.1 g/dL (6.4-8.2)
[2020-09-20 08:55] LABS: ETHANOL < 3 MG/DL (0-0)
[2020-09-20] MEDS ORDERED: DICYCLOMINE HCL 20 MG/2 ML AMPUL IM STA (09:06)
[2020-09-20] MEDS ORDERED: FAMOTIDINE. 20 MG/2 ML VIAL IV ONE ×2 (09:15→09:21)
[2020-09-20] MEDS ORDERED: LIDOCAINE VISCUS 2% 15 ML UDC MM ONE (09:15)
[2020-09-20] MEDS ORDERED: METOCLOPRAMIDE HCL 10 MG/2 ML VIAL IV ONE (09:15)
[2020-09-20] MEDS ORDERED: MAG HYDROX/AL HYDROX/SIMETH 30 ML LIQUID UDC PO ONE (09:15)
[2020-09-20] MEDS ORDERED: METOCLOPRAMIDE HCL 10 MG/2 ML VIAL ONE (09:21)
[2020-09-20] MEDS ORDERED: MAG HYDROX/AL HYDROX/SIMETH 30 ML LIQUID UDC ONE (09:23)
[2020-09-20] MEDS ORDERED: LIDOCAINE VISCUS 2% 15 ML UDC ONE (09:23)
[2020-09-20] MEDS ORDERED: METO-295 PO (09:26)
[2020-09-20] MEDS ORDERED: DICY10CA13 PO (09:26)
[2020-09-20] MEDS ORDERED: HALOPERIDOL LACTATE 5 MG/1 ML VIAL IV ONE (10:00)
[2020-09-20] MEDS ORDERED: HALOPERIDOL LACTATE 5 MG/1 ML VIAL ONE (10:04)
[2020-09-20] MEDS ORDERED: MORPHINE SULFATE 4 MG/1 ML DISP.SYRIN IV ONE (10:45)
[2020-09-20] MEDS ORDERED: MORPHINE SULFATE 4 MG/1 ML DISP.SYRIN ONE (10:47)
--- NOTE | 2020-09-20 11:00 | NUR ---
DR TERRELL SPOKE MADE PATIENT AWARE OF TEST RESULTS.
[2020-09-20 11:10] VITALS: BP 127/78
--- NOTE | 2020-09-20 11:11 | NUR ---
Patient discharged to home in stable condition. Written and verbal after care instructions given. Patient verbalizes understanding of instructions. Stressed follow up or return to ER for worsening s/s.
== END 2020-09-20 11:11 | disposition home or self-care (01) ==
LOC: ER 08:15
DX: R10.9 Unspecified abdominal pain (principal); R11.15 Cyclical vomiting syndrome unrelated to migraine; F12.10 Cannabis abuse, uncomplicated; G89.29 Other chronic pain; Z87.19 Personal history of other diseases of the digestive system
CPT/HCPCS: 36415; 83690; 85025; G0480; J0500; J1630; J2270; J2405; J2765; J3490; J7030

== ENCOUNTER 2020-09-21 04:07 | Emergency (ER) | payer OTHER ==
[~2020-09-21] VITALS: Ht 170.2 cm; Wt 70.3 kg
[~2020-09-21 04:07] MED LIST changes: +DICY10CA13 PO; +METO-295 PO
[2020-09-21] MEDS ORDERED: ONDANSETRON 4 MG/2 ML VIAL IV ONE (04:15)
[2020-09-21] MEDS ORDERED: IV NS 1000 ML 1,000 ML IV ONE (04:15)
[2020-09-21] MEDS ORDERED: HALOPERIDOL LACTATE 5 MG/1 ML VIAL IV ONE (04:15)
--- NOTE | 2020-09-21 04:15 | NUR ---
Patient ambulated with steady gait. A/Ox4. Speech is clear, speaks in complete sentences. Patient came for c/o abd pain + n/v. Patient was seen here yesterday morning and was d/c with home medications, but states that the medication is not working for him. Patient reports that he has had a long hx of smoking marijuana. Respiratory even and unlabored, no cough no sob. Abd soft, non-tender, no distention. Bowel sounds x4 quadrants. Patient in bed at lowest position, sr upx2, call light within reach. Safety precautions implemented per protocol.
--- NOTE | 2020-09-21 04:20 | NUR ---
Warm blanket, and hot pack applied to abdomen, with immediate relief.
[2020-09-21] MEDS ORDERED: HALOPERIDOL LACTATE 5 MG/1 ML VIAL ONE (04:24)
[2020-09-21] MEDS ORDERED: ONDANSETRON 4 MG/2 ML VIAL ONE (04:33)
[2020-09-21 04:40] LABS: BASOPHILS % (AUTO) 0.6 % (0.0-2.0); EOSINOPHILS % (AUTO) 0.1 % (0.0-7.0); HEMATOCRIT 39.6 % (36.7-47.1); HEMOGLOBIN 13.9 g/dL (12.5-16.3); LYMPHOCYTES # (AUTO) 0.4 K/uL (20.0-40.0); LYMPHOCYTES % (AUTO) 5.5 % (20.5-51.5); MEAN CORPUSCULAR HEMOGLOBIN 29.5 uug (23.8-33.4); MEAN CORPUSCULAR HGB CONC 35 g/dL (32.5-36.3); MEAN CORPUSCULAR VOLUME 83.9 fL (73.0-96.2); MONOCYTES # (AUTO) 0.4 K/uL (2.0-10.0); MONOCYTES % (AUTO) 5.6 % (0.0-11.0); NEUTROPHILS # (AUTO) 5.9 K/uL (1.8-8.9); NEUTROPHILS % (AUTO) 88.2 % (38.5-71.5); PLATELET COUNT (AUTO) 201 K/uL (152-348); RED BLOOD CELL COUNT(AUTO) 4.72 MIL/uL (4.06-5.63); WHITE BLOOD COUNT (AUTO) 6.7 K/uL (3.6-10.2)
--- NOTE | 2020-09-21 04:44 | NUR ---
Patient in bed without any acute distress at this time. Per ERMD patient will need to be monitored and observed for any acute changes or improvements.
[2020-09-21 04:54] LABS: CARBON DIOXIDE 30 mmol/L (21-32); CHLORIDE 100 mmol/L (98-107); CREATININE 1.2 mg/dL (0.6-1.3); GLUCOSE 129 mg/dL (74-106); POTASSIUM 3.6 mmol/L (3.5-5.1); UREA NITROGEN, BLOOD 13 mg/dL (7-18)
[2020-09-21 05:06] LABS: ALANINE AMINOTRANSFERASE 42 U/L (16-63); ALKALINE PHOSPHATASE 64 U/L (50-136); ASPARTATE AMINOTRANSFERASE 32 U/L (15-37); BILIRUBIN,DIRECT 0.2 mg/dL (0.0-0.2); BILIRUBIN,TOTAL 0.7 mg/dL (0.2-1.0); LIPASE 96 U/L (73-393); TOTAL PROTEIN, SERUM 7.9 g/dL (6.4-8.2)
[2020-09-21 05:59] LABS: ETHANOL < 3 MG/DL (0-0)
--- NOTE | 2020-09-21 07:00 | NUR ---
IV removed. Catheter intact and site benign. Pressure and 4x4 gauze applied to site. No bleeding noted. Patient discharged to home in stable condition. Written and verbal after care instructions given. Patient verbalizes understanding of instructions. Stressed follow up or return to ER for worsening s/s. Patient ambulated with steady gait. A/Ox4. All belongings returned to patient prior to departure. PO challenge was initiated per ERMD request and patient was able to tolerate clear fluids without feeling nauseous and/or any emetic episodes. Patient will be picked up by family member and taken home.
[2020-09-21 07:02] VITALS: BP 121/65
[2020-09-22] MEDS ORDERED: PANT40TA49 PO (09:13)
[2020-09-22] MEDS ORDERED: ONDA4TAB11 PO (09:13)
== END 2020-09-21 07:02 | disposition home or self-care (01) ==
LOC: ER 04:18
DX: R11.11 Vomiting without nausea (principal); F12.10 Cannabis abuse, uncomplicated; G89.29 Other chronic pain; Z87.820 Personal history of traumatic brain injury
CPT/HCPCS: 36415; 80048; 80076; 80320; 83690; 85025; 96361; 96374; 96375; 99284; J1630; J2405; A4663; G0480; J7030

== ENCOUNTER 2020-09-22 05:58 | Emergency (ER) | payer OTHER ==
[~2020-09-22] VITALS: Ht 170.2 cm; Wt 70.3 kg
[2020-09-22] MEDS ORDERED: IV NORMAL SALINE 1000 ML BAG IV ONE (06:30)
[2020-09-22] MEDS ORDERED: ONDANSETRON 4 MG/2 ML VIAL IV ONE ×3 (06:30→07:45)
[2020-09-22 06:39] LABS: BASOPHILS % (AUTO) 0.7 % (0.0-2.0); EOSINOPHILS % (AUTO) 0.7 % (0.0-7.0); HEMOGLOBIN 14.9 g/dL (12.5-16.3); LYMPHOCYTES # (AUTO) 0.8 K/uL (20.0-40.0); LYMPHOCYTES % (AUTO) 15.8 % (20.5-51.5); MEAN CORPUSCULAR HEMOGLOBIN 29.4 uug (23.8-33.4); MEAN CORPUSCULAR HGB CONC 35 g/dL (32.5-36.3); MEAN CORPUSCULAR VOLUME 85.1 fL (73.0-96.2); MONOCYTES # (AUTO) 0.6 K/uL (2.0-10.0); MONOCYTES % (AUTO) 11.6 % (0.0-11.0); NEUTROPHILS # (AUTO) 3.8 K/uL (1.8-8.9); NEUTROPHILS % (AUTO) 71.2 % (38.5-71.5); PLATELET COUNT (AUTO) 209 K/uL (152-348); RED BLOOD CELL COUNT(AUTO) 5.05 MIL/uL (4.06-5.63); WHITE BLOOD COUNT (AUTO) 5.4 K/uL (3.6-10.2)
[2020-09-22] MEDS ORDERED: PANTOPRAZOLE SODIUM 40 MG VIAL ONE (06:43)
[2020-09-22] MEDS ORDERED: PANTOPRAZOLE SODIUM 40 MG VIAL IV ONE (06:45)
[2020-09-22 06:47] LABS: CREATININE 1.3 mg/dL (0.6-1.3); POTASSIUM 3.3 mmol/L (3.5-5.1)
--- NOTE | 2020-09-22 06:47 | NUR ---
Patient presents to ED for the third time in 3 days for Nausea/Vomiting & Abd Pain. States pain is 9/10 - and non-radiating but is present in upper/lower abdomen. Neuro hull patient is alert and orientated. Patients blood pressure is slightly elevated and heart rate is in the 50s (Sinus) - neither of which are indicative of emisis being present for 3 days. No SOB - no chest pain.
[2020-09-22 06:53] LABS: BILIRUBIN,DIRECT 0.3 mg/dL (0.0-0.2); BILIRUBIN,TOTAL 0.9 mg/dL (0.2-1.0)
[2020-09-22] MEDS ORDERED: diphenhydrAMINE 50 MG/1 ML VIAL ONE (06:58)
[2020-09-22] MEDS ORDERED: HALOPERIDOL LACTATE 5 MG/1 ML VIAL ONE (06:58)
[2020-09-22] MEDS ORDERED: HALOPERIDOL LACTATE 5 MG/1 ML VIAL IV ONE (07:00)
[2020-09-22] MEDS ORDERED: diphenhydrAMINE 50 MG/1 ML VIAL IV ONE (07:00)
[2020-09-22] MEDS ORDERED: KETOROLAC TROMETHAMINE 30 MG INJ ONE (07:25)
[2020-09-22] MEDS ORDERED: KETOROLAC TROMETHAMINE 30 MG INJ IVP ONE (07:30)
[2020-09-22] MEDS ORDERED: ONDANSETRON 4 MG/2 ML VIAL ONE (07:46)
[2020-09-22] MEDS ORDERED: METOCLOPRAMIDE HCL 10 MG/2 ML VIAL IV ONE (08:15)
[2020-09-22] MEDS ORDERED: METOCLOPRAMIDE HCL 10 MG/2 ML VIAL ONE (08:22)
[2020-09-22] MEDS ORDERED: PANT40TA49 PO (09:13)
[2020-09-22] MEDS ORDERED: ONDA4TAB11 PO (09:13)
--- NOTE | 2020-09-22 09:30 | NUR ---
PT WAS D/C'd TO HOME. SFTER DR PEREZ EVALUATION. D/C INSTRUCTIONS GIVEN TO THE PT BY DR PEREZ.
[2020-09-22 09:32] VITALS: BP 140/72
== END 2020-09-22 09:33 | disposition home or self-care (01) ==
LOC: ER 05:59
DX: R11.15 Cyclical vomiting syndrome unrelated to migraine (principal); F12.10 Cannabis abuse, uncomplicated; R10.13 Epigastric pain; Z82.49 Family history of ischemic heart disease and other diseases of the circulatory system; G89.29 Other chronic pain; K29.70 Gastritis, unspecified, without bleeding; Z79.899 Other long term (current) drug therapy
CPT/HCPCS: 36415; 80048; 80076; 83690; 85025; 96361; 96374; 96375; 96376; 99284; C9113; J1200; J1630; J1885; J2405; J2765; A4663

== ENCOUNTER 2021-04-10 17:25 | Inpatient (IN) | payer OTHER ==
[~2021-04-10] VITALS: Ht 167.6 cm; Wt 63.5 kg
[~2021-04-10 17:25] MED LIST changes: -BISA-79 PO; -DICY20TA11 PO; -LACT10SO3 PO; -OMEP20TA20 PO; +ONDA4TAB11 PO; -ONDA4TAB5 PO; +PANT40TA49 PO; -POLY17PO4 PO; -PROC10TA13 PO; -SENN-261 PO
[2021-04-10] MEDS ORDERED: ONDANSETRON 4 MG/2 ML VIAL IV ONE ×2 (18:00→22:30)
[2021-04-10] MEDS ORDERED: FAMOTIDINE. 20 MG/2 ML VIAL IV ONE ×2 (18:00→18:11)
[2021-04-10] MEDS ORDERED: IV NORMAL SALINE 1000 ML BAG IV ONE (18:00)
[2021-04-10] MEDS ORDERED: ONDANSETRON 4 MG/2 ML VIAL ONE ×2 (18:11→22:29)
[2021-04-10 18:16] LABS: HEMATOCRIT 45.5 % (36.7-47.1); MEAN CORPUSCULAR HEMOGLOBIN 29.3 uug (23.8-33.4); MEAN CORPUSCULAR VOLUME 84.8 fL (73.0-96.2); PLATELET COUNT (AUTO) 217 K/uL (152-348)
[2021-04-10 18:24] LABS: CREATININE 1.2 mg/dL (0.6-1.3)
[2021-04-10 18:29] LABS: BILIRUBIN,DIRECT 0.6 mg/dL (0.0-0.2); BILIRUBIN,TOTAL 1.3 mg/dL (0.2-1.0); TOTAL PROTEIN, SERUM 8.8 g/dL (6.4-8.2)
[2021-04-10 18:38] LABS: EOSINOPHILS % (MANUAL) 2 % (0-8); LYMPHOCYTES % (MANUAL) 12 % (20-40); MONOCYTES % (MANUAL) 16 % (2-10); NEUTROPHILS % (MANUAL) 70 % (42-75)
--- NOTE | 2021-04-10 19:05 | NUR ---
RECEIVED REPORT FORM TERE SERVIN.
[2021-04-10] MEDS ORDERED: METOCLOPRAMIDE HCL 10 MG/2 ML VIAL IV ONE (21:00)
[2021-04-10] MEDS ORDERED: diphenhydrAMINE 50 MG/1 ML VIAL IV ONE (21:00)
--- NOTE | 2021-04-10 21:15 | NUR ---
PT RESTING COMFORTABLY IN BED, EYES CLOSED, BREATHING EVEN AND UNLABORED. STABLE VITALS.
[2021-04-10] MEDS ORDERED: IV NS 1000 ML 1,000 ML IV ONE (22:30)
[2021-04-10] MEDS ORDERED: HALOPERIDOL LACTATE 5 MG/1 ML VIAL IV ONE (22:30)
--- NOTE | 2021-04-10 23:13 | NUR ---
ULTRASOUND(DEB) AT BEDSIDE.
--- NOTE | 2021-04-11 00:28 | NUR ---
PO CHALLENGE, PT DENIES ANY N/V OR DIZZINESS.
--- NOTE | 2021-04-11 00:55 | NUR ---
PT BEING TAKEN DOWN FOR CT.
--- NOTE | 2021-04-11 01:10 | NUR ---
RETURNED FROM CT.
[2021-04-11] MEDS ORDERED: LORAZEPAM 2 MG/1 ML VIAL IV PRN (02:15)
[2021-04-11] MEDS ORDERED: ACETAMINOPHEN 325 MG TABLET PO PRN (02:15)
[2021-04-11] MEDS ORDERED: HALOPERIDOL LACTATE 5 MG/1 ML VIAL IV PRN (02:15)
[2021-04-11] MEDS ORDERED: MAGNESIUM HYDROXIDE 30 ML LIQUID UDC PO PRN (02:15)
--- NOTE | 2021-04-11 02:18 | NUR ---
PT RESTING, EYES CLOSED, BREATHING EVEN AND UNLABORED.
--- NOTE | 2021-04-11 03:22 | NUR ---
GAVE REPORT TO TERE BARRAZA.
--- NOTE | 2021-04-11 03:46 | NUR ---
Pt. admitted to [facility] , under care of KRYSTYNA JAMIL DX: UNTRACTABLE ABD PAIN AND UNTRACTABLE VOMITTING Belongs List completed
[2021-04-11] MEDS: IV 1/2NS 1000 ML 1,000 ML IV PRN ×2 (03:55→17:29)
[2021-04-11 04:00] VITALS: BP 149/82
--- NOTE | 2021-04-11 04:58 | NUR ---
Admitted 31 y/o male to [facility] accompanied by ER nurse via w/c with dx of intractable abdominal pain, nausea/vomiting. He is alert and oriented x4, able to make needs known. He is currently on NPO, explained with pt and verbalized understanding. Noted with c/o of abdominal pain 3/10, nausea, and weakness. Admission process observed, initial assessment done, and belongings list filled up. IV line on L wrist G#20 is patent and intact, started on 07/07 NS 1L running at 75 ml/hr. Ativan IV given for nausea as ordered by Dar Medina, ARIE. All needs attended. Call light placed within reach. Will continue to monitor.
[2021-04-11 06:52] LABS: HEMATOCRIT 39.2 % (36.7-47.1); MEAN CORPUSCULAR HEMOGLOBIN 28.9 uug (23.8-33.4); MEAN CORPUSCULAR VOLUME 84.7 fL (73.0-96.2); PLATELET COUNT (AUTO) 176 K/uL (152-348)
[2021-04-11 07:03] LABS: CREATININE 1.3 mg/dL (0.6-1.3); MAGNESIUM 1.8 mg/dL (1.8-2.4); POTASSIUM 4.1 mmol/L (3.5-5.1)
[2021-04-11] MEDS: PANTOPRAZOLE SODIUM 40 MG VIAL IV SCH (08:26)
[2021-04-11 10:52] VITALS: BP 128/63
[2021-04-11] MEDS: MORPHINE SULFATE 2 MG/1 ML DISP.SYRIN IV PRN ×3 (13:31→22:52)
[2021-04-11] MEDS: ONDANSETRON 4 MG/2 ML VIAL IV PRN ×2 (13:36→18:47)
[2021-04-11] MEDS ORDERED: MAG HYDROX/AL HYDROX/SIMETH 30 ML LIQUID UDC PO PRN (14:15)
[2021-04-11 15:53] VITALS: BP 138/84
[2021-04-11 20:05] VITALS: BP 121/80
[2021-04-12] MEDS: MORPHINE SULFATE 2 MG/1 ML DISP.SYRIN IV PRN ×3 (03:08→12:35)
[2021-04-12 06:19] LABS: HEMATOCRIT 36.6 % (36.7-47.1); MEAN CORPUSCULAR HEMOGLOBIN 29.3 uug (23.8-33.4); MEAN CORPUSCULAR VOLUME 84.8 fL (73.0-96.2); PLATELET COUNT (AUTO) 152 K/uL (152-348)
[2021-04-12 06:33] LABS: BILIRUBIN,TOTAL 0.6 mg/dL (0.2-1.0); CREATININE 1.1 mg/dL (0.6-1.3); MAGNESIUM 1.9 mg/dL (1.8-2.4); PHOSPHOROUS 3.2 mg/dL (2.5-4.9); POTASSIUM 3.6 mmol/L (3.5-5.1); TOTAL PROTEIN, SERUM 6.7 g/dL (6.4-8.2)
--- NOTE | 2021-04-12 07:30 | NUR ---
Patient received in bed, alert and oriented x4. C/O pain at this time and will administer morphine as ordered. Left wrist IV patent running IVF as ordered. NPO at this time due. Call light and personal belongings within easy reach. Will continue to monitor.
[2021-04-12] MEDS: PANTOPRAZOLE SODIUM 40 MG VIAL IV SCH (08:01)
[2021-04-12] MEDS: IV 1/2NS 1000 ML 1,000 ML IV PRN (08:01)
[2021-04-12 11:03] VITALS: BP 150/96
[2021-04-12] MEDS: ONDANSETRON 4 MG/2 ML VIAL IV PRN (12:02)
[2021-04-12] MEDS ORDERED: HYDR-4209 PO (13:27)
[2021-04-12] MEDS ORDERED: DICY20TA11 PO (13:27)
[2021-04-12] MEDS ORDERED: METO-295 PO (13:27)
[2021-04-12] MEDS ORDERED: FAMO-132 PO (13:27)
--- NOTE | 2021-04-12 15:13 | NUR ---
Patient discharged in satisfactory condition with all of his personal belongings. He was instructed on picking up new prescriptions from the pharmacy and he expressed understanding.
== END 2021-04-12 15:15 | disposition home or self-care (01) | DRG 241 ==
LOC: ER 17:25 → MEDSURG3 04-11 03:24
PROVIDERS: ADMIT Internal Medicine; ATTEND Internal Medicine
DX: K29.50 Unspecified chronic gastritis without bleeding (principal); F12.188 Cannabis abuse with other cannabis-induced disorder; R11.2 Nausea with vomiting, unspecified; Z20.822 Contact with and (suspected) exposure to COVID-19; R74.01 Elevation of levels of liver transaminase levels; R11.15 Cyclical vomiting syndrome unrelated to migraine; R74.9 Abnormal serum enzyme level, unspecified
CPT/HCPCS: 36415; 70030-TC; 76705; 83690; 83735; 84100; 85025; 93005; A4663; C9113; G0378; J1200; J1630; J2060; J2270; J2405; J2765; J3490; J7030

== ENCOUNTER 2021-07-16 23:29 | Emergency (ER) | payer OTHER ==
[~2021-07-16] VITALS: Ht 170.2 cm; Wt 70.3 kg
[~2021-07-16 23:29] MED LIST changes: -DICY10CA13 PO; +DICY20TA11 PO; +FAMO-132 PO; +HYDR-4209 PO; -ONDA4TAB11 PO; -PANT40TA49 PO
--- NOTE | 2021-07-16 23:45 | NUR ---
AFTER BEING TRIAGED, PATIENT WAS PLACED IN WAITING ROOM TO WAIT FOR BED OPENING IN THE ER.
--- NOTE | 2021-07-17 02:33 | NUR ---
Patient placed in room 2b.
[2021-07-17] MEDS ORDERED: HALOPERIDOL LACTATE 5 MG/1 ML VIAL IV ONE (02:45)
[2021-07-17] MEDS ORDERED: FAMOTIDINE. 20 MG/2 ML VIAL IV ONE ×2 (02:45→02:56)
[2021-07-17] MEDS ORDERED: HYDROMORPHONE 1 MG/1 ML DISP.SYRIN IV ONE (02:45)
[2021-07-17] MEDS ORDERED: METOCLOPRAMIDE HCL 10 MG/2 ML VIAL IV ONE (02:45)
[2021-07-17] MEDS ORDERED: ONDANSETRON 4 MG/2 ML VIAL IV ONE (02:45)
[2021-07-17] MEDS ORDERED: IV NORMAL SALINE 1000 ML BAG IV ONE (02:45)
--- NOTE | 2021-07-17 02:49 | NUR ---
xray and lab at bedside.
[2021-07-17] MEDS ORDERED: HYDROMORPHONE 1 MG/1 ML DISP.SYRIN ONE (02:55)
[2021-07-17] MEDS ORDERED: ONDANSETRON 4 MG/2 ML VIAL ONE (02:55)
[2021-07-17] MEDS ORDERED: HALOPERIDOL LACTATE 5 MG/1 ML VIAL ONE (02:55)
[2021-07-17] MEDS ORDERED: METOCLOPRAMIDE HCL 10 MG/2 ML VIAL ONE (02:55)
[2021-07-17 02:57] LABS: HEMATOCRIT 42.7 % (36.7-47.1); MEAN CORPUSCULAR HEMOGLOBIN 28.9 uug (23.8-33.4); MEAN CORPUSCULAR VOLUME 85.3 fL (73.0-96.2); PLATELET COUNT (AUTO) 191 K/uL (152-348)
[2021-07-17 03:06] LABS: CREATININE 1.6 mg/dL (0.6-1.3); POTASSIUM 4.1 mmol/L (3.5-5.1)
[2021-07-17 03:12] LABS: BILIRUBIN,DIRECT 0.2 mg/dL (0.0-0.2); BILIRUBIN,TOTAL 0.6 mg/dL (0.2-1.0); TOTAL PROTEIN, SERUM 8.5 g/dL (6.4-8.2)
[2021-07-17] MEDS ORDERED: DICY20TA11 PO (03:45)
[2021-07-17] MEDS ORDERED: PROC25SU31 RC (03:45)
[2021-07-17] MEDS ORDERED: HYDR-3980 PO (03:45)
[2021-07-17] MEDS ORDERED: ONDA4TAB5 PO (03:45)
--- NOTE | 2021-07-17 06:23 | NUR ---
Patient is resting comfortably in bed with eyes closed.
--- NOTE | 2021-07-17 08:02 | NUR ---
PT WAS D/C'd TO HOME. D/C INSTRUCTIONS GIVEN TO THE PT BY DR AMEZCUA.
[2021-07-17 08:03] VITALS: BP 129/88
== END 2021-07-17 08:04 | disposition home or self-care (01) ==
LOC: ER 23:34
DX: R11.15 Cyclical vomiting syndrome unrelated to migraine (principal); R10.9 Unspecified abdominal pain; G89.29 Other chronic pain
CPT/HCPCS: 36415; 71045; 74021; 80048; 80076; 83690; 85025; 93005; 96361; 96374; 96375; 99285; J1170; J1630; J2405; J2765; J3490; J7030

== ENCOUNTER 2021-09-15 16:32 | Emergency (ER) | payer OTHER ==
[~2021-09-15] VITALS: Ht 170.2 cm; Wt 70.3 kg
[~2021-09-15 16:32] MED LIST changes: +HYDR-3980 PO; +ONDA4TAB5 PO; +PROC25SU31 RC
--- NOTE | 2021-09-15 17:20 | NUR ---
Dr Kong evaluated the PT.
[2021-09-15] MEDS ORDERED: ONDANSETRON ODT 4 MG TAB.RAPDIS SL ONE (17:30)
[2021-09-15] MEDS ORDERED: ONDANSETRON ODT 4 MG TAB.RAPDIS ONE (17:37)
[2021-09-15] MEDS ORDERED: PANTOPRAZOLE SODIUM 40 MG TABLET.DR PO ONE ×2 (17:45→17:55)
[2021-09-15 18:03] LABS: HEMATOCRIT 44.2 % (36.7-47.1); MEAN CORPUSCULAR VOLUME 83.9 fL (73.0-96.2); PLATELET COUNT (AUTO) 228 K/uL (152-348)
[2021-09-15 18:09] LABS: CREATININE 1.4 mg/dL (0.6-1.3); POTASSIUM 3.7 mmol/L (3.5-5.1)
[2021-09-15 18:15] LABS: BILIRUBIN,DIRECT 0.3 mg/dL (0.0-0.2); TOTAL PROTEIN, SERUM 8.5 g/dL (6.4-8.2)
[2021-09-15] MEDS ORDERED: IV NORMAL SALINE 1000 ML BAG IV ONE (18:30)
--- NOTE | 2021-09-15 19:25 | NUR ---
IV SITE ON LEFT AC ACCIDENTLY PULLED OUT WHEN PATIENT WAS MOVING. PLACE A NEW SIT ON RIGHT UPPER ARM WITH 18G.
--- NOTE | 2021-09-15 20:57 | NUR ---
Pt provided urine sample, sent to lab.
[2021-09-15 21:05] LABS: *BILIRUBIN,URIN NEGATIVE (NEGATIVE); *BLOOD, URINE NEGATIVE (NEGATIVE); *CLARITY,URINE CLEAR (CLEAR); *COLOR,URINE YELLOW (YELLOW); *KETONES,URINE 4+ (NEGATIVE); *UROBILINOGEN,URINE 0.2 E.U./dl (NORMAL); LEUKOCYTE ESTERASE ,URINE NEGATIVE (NEGATIVE); NITRITE, URINE NEGATIVE (NEGATIVE); UGLUCOSE NEGATIVE (NEGATIVE)
--- NOTE | 2021-09-15 21:10 | NUR ---
Patient vomiting. Dr Huang aware.
[2021-09-15] MEDS ORDERED: PROC-11 PO (21:27)
[2021-09-15] MEDS ORDERED: PROCHLORPERAZINE EDISYLATE 10 MG/2 ML VIAL IV ONE (21:30)
[2021-09-15] MEDS ORDERED: PROCHLORPERAZINE EDISYLATE 10 MG/2 ML VIAL ONE (21:31)
--- NOTE | 2021-09-15 22:20 | NUR ---
IV removed. Catheter intact and site benign. Pressure and 4x4 gauze applied to site. No bleeding noted.
[2021-09-15 22:27] VITALS: BP 138/75
== END 2021-09-15 22:33 | disposition home or self-care (01) ==
LOC: ER 16:34
DX: R11.15 Cyclical vomiting syndrome unrelated to migraine (principal); R10.9 Unspecified abdominal pain; Z82.49 Family history of ischemic heart disease and other diseases of the circulatory system; N28.9 Disorder of kidney and ureter, unspecified; G89.29 Other chronic pain; F12.10 Cannabis abuse, uncomplicated; Z90.49 Acquired absence of other specified parts of digestive tract
CPT/HCPCS: 36415; 80048; 80076; 81003; 83690; 85025; 96360; 96361; 96374; 99284; J0780; A4663; J7030; Q0162

== ENCOUNTER 2022-12-06 08:48 | Emergency (ER) | payer OTHER ==
[~2022-12-06] VITALS: Ht 170.2 cm; Wt 70.3 kg
[~2022-12-06 08:48] MED LIST changes: +PROC-11 PO
[2022-12-06] MEDS ORDERED: diphenhydrAMINE 50 MG/1 ML VIAL ONE (09:29)
[2022-12-06] MEDS ORDERED: diphenhydrAMINE 50 MG/1 ML VIAL IV ONE (09:30)
[2022-12-06] MEDS ORDERED: FAMOTIDINE. 20 MG/2 ML VIAL IV ONE ×2 (09:30)
[2022-12-06] MEDS ORDERED: PROCHLORPERAZINE EDISYLATE 10 MG/2 ML VIAL IV ONE (09:30)
[2022-12-06] MEDS ORDERED: IV NORMAL SALINE 1000 ML BAG IV ONE ×2 (09:30→10:45)
[2022-12-06] MEDS ORDERED: PROCHLORPERAZINE EDISYLATE 10 MG/2 ML VIAL ONE (09:30)
[2022-12-06 09:57] LABS: HEMATOCRIT 42.6 % (36.7-47.1); MEAN CORPUSCULAR VOLUME 84.2 fL (73.0-96.2); PLATELET COUNT (AUTO) 218 K/uL (152-348)
[2022-12-06] MEDS ORDERED: HALOPERIDOL LACTATE 5 MG/1 ML VIAL ONE (10:02)
[2022-12-06 10:08] LABS: CREATININE 1.3 mg/dL (0.6-1.3); POTASSIUM 4.7 mmol/L (3.5-5.1)
[2022-12-06 10:14] LABS: BILIRUBIN,DIRECT 0.3 mg/dL (0.0-0.2); TOTAL PROTEIN, SERUM 7.9 g/dL (6.4-8.2)
[2022-12-06] MEDS ORDERED: HALOPERIDOL LACTATE 5 MG/1 ML VIAL IM ONE (10:15)
--- NOTE | 2022-12-06 10:26 | NUR ---
Patient is resting comfortably on gurney with eyes closed. Extra warm blankets on.
[2022-12-06] MEDS ORDERED: LORAZEPAM 2 MG/1 ML VIAL ONE (10:35)
[2022-12-06] MEDS ORDERED: METOCLOPRAMIDE HCL 10 MG/2 ML VIAL ONE (10:35)
[2022-12-06] MEDS ORDERED: LORAZEPAM 2 MG/1 ML VIAL IV ONE (10:45)
[2022-12-06] MEDS ORDERED: METOCLOPRAMIDE HCL 10 MG/2 ML VIAL IV ONE (10:45)
--- NOTE | 2022-12-06 12:14 | NUR ---
No more retching or actual vomiting seen after IV Ativan & IV Reglan. SpO2 levels=97%-100% room air. Safety & comfort measures maintained.
[2022-12-06] MEDS ORDERED: METO-295 PO (13:54)
[2022-12-06] MEDS ORDERED: FAMO10TA41 PO (13:54)
[2022-12-06 16:45] VITALS: BP 123/89
--- NOTE | 2022-12-06 16:46 | NUR ---
No vomiting or retching noted since 1045am today. Patient tolerated po challenge and is for discharged to home by Dr Colon. Written and verbal after care instructions given. Patient verbalized understanding and compliance of instructions. Stressed follow up with primary doctor and senior loss control specialist or return to ER for worsening s/s. IV removed. Catheter intact and site benign. Pressure and 4x4 gauze applied to site. No bleeding noted. Patient said that he is not driving and that his relative is coming to pick him up.
== END 2022-12-06 16:51 | disposition home or self-care (01) ==
LOC: ER 08:48
DX: R11.2 Nausea with vomiting, unspecified (principal); Z90.49 Acquired absence of other specified parts of digestive tract; Z79.899 Other long term (current) drug therapy
CPT/HCPCS: 99285; 96374; 96375; 96361; 80076; 80048; 83690; 85025; 36415; 96372; J1200; J3490; J1630; J2060; J2765; J0780; J7040 ×2; A4663

== ENCOUNTER 2022-12-07 06:31 | Inpatient (IN) | payer OTHER ==
[~2022-12-07] VITALS: Ht 170.2 cm; Wt 70.3 kg
--- NOTE | 2022-12-07 | NUR ---
RECD PT IN BED, ALERT,ORIENTED X 4, NO COMPLAINTS PRESENTED,IVF INFUSING WELL.
[~2022-12-07 06:31] MED LIST changes: -DICY20TA11 PO; +FAMO10TA41 PO; -HYDR-3980 PO; -HYDR-4209 PO; -PROC-11 PO; -PROC25SU31 RC
[2022-12-07] MEDS ORDERED: METOCLOPRAMIDE HCL 10 MG/2 ML VIAL ONE (07:11)
[2022-12-07] MEDS ORDERED: HALOPERIDOL LACTATE 5 MG/1 ML VIAL ONE (07:11)
[2022-12-07] MEDS ORDERED: FAMOTIDINE. 20 MG/2 ML VIAL IV ONE ×2 (07:12→07:15)
[2022-12-07] MEDS ORDERED: HALOPERIDOL LACTATE 5 MG/1 ML VIAL IM ONE (07:15)
[2022-12-07] MEDS ORDERED: IV NORMAL SALINE 1000 ML BAG IV ONE (07:15)
[2022-12-07] MEDS ORDERED: METOCLOPRAMIDE HCL 10 MG/2 ML VIAL IV ONE (07:15)
[2022-12-07 07:31] LABS: HEMATOCRIT 41.9 % (36.7-47.1); MEAN CORPUSCULAR HEMOGLOBIN 28.9 uug (23.8-33.4); MEAN CORPUSCULAR VOLUME 84.4 fL (73.0-96.2); PLATELET COUNT (AUTO) 213 K/uL (152-348)
[2022-12-07 07:36] LABS: CREATININE 1.2 mg/dL (0.6-1.3); POTASSIUM 3.7 mmol/L (3.5-5.1)
[2022-12-07 07:43] LABS: BILIRUBIN,DIRECT 0.2 mg/dL (0.0-0.2); BILIRUBIN,TOTAL 0.7 mg/dL (0.2-1.0); TOTAL PROTEIN, SERUM 8.5 g/dL (6.4-8.2)
--- NOTE | 2022-12-07 07:47 | NUR ---
Pt seen by MD for bedside eval. Safety measures in place. Will continue to monitor.
[2022-12-07 09:21] LABS: *BILIRUBIN,URIN NEGATIVE (NEGATIVE); *BLOOD, URINE NEGATIVE (NEGATIVE); *CLARITY,URINE CLEAR (CLEAR); *COLOR,URINE YELLOW (YELLOW); *KETONES,URINE 2+ (NEGATIVE); *UROBILINOGEN,URINE 0.2 E.U./dl (NORMAL); LEUKOCYTE ESTERASE ,URINE NEGATIVE (NEGATIVE); NITRITE, URINE NEGATIVE (NEGATIVE); UGLUCOSE NEGATIVE (NEGATIVE)
[2022-12-07 09:46] LABS: *AMPHETAMINE, URINE NEGATIVE (NEGATIVE); *CANNABINOID, URINE POSITIVE (NEGATIVE); *COCCAINE, URINE NEGATIVE (NEGATIVE); *PHENCYCLIDINE SCREEN,URINE NEGATIVE (NEGATIVE)
--- NOTE | 2022-12-07 10:35 | NUR ---
Pt arrived to room 317 via WC accompanied by DIRECTOR OF GRADUATE MEDICAL EDUCATION. INDIGO VAT TENDER CLOTH at bedside to assess. Pt stable, no vomiting at this time, c/o 10/10 pain, IV flushed and patent.
--- NOTE | 2022-12-07 10:36 | NUR ---
Gave report to Belkys (RN).
--- NOTE | 2022-12-07 10:49 | NUR ---
Transferred Pt to 317 in stable condition. Pt arrived in bed safely. All belongings are with pt. Belkys is aware pt is in and that Pt doesn't have hx of hepatitis despite medical record stating it does.
[2022-12-07 11:00] VITALS: BP 133/67
[2022-12-07] MEDS ORDERED: REMEDY ESSENTIAL ZINC PASTE 113 GM TP PRN (11:15)
[2022-12-07] MEDS ORDERED: MAGNESIUM HYDROXIDE 30 ML LIQUID UDC PO PRN (11:15)
[2022-12-07] MEDS: ENOXAPARIN SODIUM 40 MG/0.4 ML DISP.SYRIN SQ SCH (11:40)
[2022-12-07] MEDS: IV NS 1000 ML 1,000 ML IV PRN (11:57)
[2022-12-07] MEDS: MORPHINE SULFATE 2 MG/1 ML DISP.SYRIN IV PRN ×2 (12:51→20:11)
--- NOTE | 2022-12-07 15:07 | NUR ---
Pt went down to CT via WC accompanied by 2 techs. Pt stable no s/s of distress noted.
--- NOTE | 2022-12-07 15:25 | NUR ---
Pt returned from CT with the hiccups and c/o Nausea. Pt prefers Zofran at this time. Will administer and continue to monitor.
[2022-12-07] MEDS: ONDANSETRON 4 MG/2 ML VIAL IV PRN (15:29)
[2022-12-07 15:32] VITALS: BP 145/85
[2022-12-07] MEDS: ACETAMINOPHEN 325 MG TABLET PO PRN (17:52)
[2022-12-07] MEDS ORDERED: ASPIRIN/ACETAMINOPHEN/CAFFEINE TABLET PO PRN (18:15)
[2022-12-07 20:32] VITALS: BP 119/71
--- NOTE | 2022-12-07 21:40 | NUR ---
RELIEF AFFORDED AFTER MORPHINE SULFATE 2 MG GIVEN FOR ABDOMINAL PAIN. RESTING FAIRLY WELL.
[2022-12-08] MEDS: IV NS 1000 ML 1,000 ML IV PRN ×2 (03:03→12:56)
--- NOTE | 2022-12-08 03:30 | NUR ---
IV SITE INFILTRATED, G 20 INSERTED ON RIGHT FOREARM, PROCEDURE TOLERATED WELL.
[2022-12-08 04:16] VITALS: BP 120/72
[2022-12-08] MEDS: HYDROCODONE/APAP 5-325MG TABLET PO PRN ×2 (06:45→20:21)
[2022-12-08 06:52] LABS: HEMATOCRIT 36.8 % (36.7-47.1); MEAN CORPUSCULAR HEMOGLOBIN 29.1 uug (23.8-33.4); MEAN CORPUSCULAR VOLUME 85.2 fL (73.0-96.2); PLATELET COUNT (AUTO) 161 K/uL (152-348)
--- NOTE | 2022-12-08 06:57 | NUR ---
ENDORSED TO AM NURSE IN FAIR CONDITION.
[2022-12-08 07:05] LABS: MAGNESIUM 1.7 mg/dL (1.8-2.4); PHOSPHOROUS 3.5 mg/dL (2.5-4.9); POTASSIUM 3.7 mmol/L (3.5-5.1)
[2022-12-08] MEDS: PANTOPRAZOLE SODIUM 40 MG VIAL IV SCH (08:29)
[2022-12-08] MEDS: ENOXAPARIN SODIUM 40 MG/0.4 ML DISP.SYRIN SQ SCH (08:31)
[2022-12-08] MEDS ORDERED: MAGNESIUM OXIDE 400 MG TABLET PO ONE (09:30)
[2022-12-08 09:48] LABS: BILIRUBIN,DIRECT 0.3 mg/dL (0.0-0.2); BILIRUBIN,TOTAL 0.8 mg/dL (0.2-1.0); TOTAL PROTEIN, SERUM 6.7 g/dL (6.4-8.2)
[2022-12-08 11:30] VITALS: BP 139/78
--- NOTE | 2022-12-08 12:14 | NUR ---
0730-Rec'd patient in bed, AAOx4, verbalizes his needs and follows directions. Patient on R/A, saturating 98%, denies any SOB, denies pain, denies GI discomfort, no N/V noted at this time. IV line to RTFA G20" flushing well with site intact, ns at 75cc/hr as ordered by MD. Call light within reach in functioning order, encouraged patient to use it for help every time needed with good understanding. 0900-Scheduled medication administered with no ASE noted. Oral fluids taken well. 1200-VS checked and as follows: BP 133/91, hr 42, r18, t97.4, HR double checked and same within result 42-48, MD was informed via VM with pending call back. nurse covering for the shift also informed. Patient denies any SOB, chest pain, faint, dizziness. Patient states he feels sleepy since he could not sleep through the night and feels very stressed out with his personal problems/family/girlfriend problems. Advice patient to try to easy his mind so he can rest.
[2022-12-08] MEDS: METOCLOPRAMIDE HCL 10 MG/2 ML VIAL IV PRN ×2 (12:56→19:58)
[2022-12-08] MEDS ORDERED: IV NS 1000 ML 1,000 ML IV ONE (14:15)
[2022-12-08 15:03] VITALS: BP 153/61
[2022-12-08] MEDS: ACETAMINOPHEN 325 MG TABLET PO PRN (18:07)
[2022-12-08] MEDS: ONDANSETRON 4 MG/2 ML VIAL IV PRN (18:07)
--- NOTE | 2022-12-08 19:55 | NUR ---
1830-Patient continues with HR on the low side. Patient denies any lightheadedness/dizziness, patient was medicated PRN for his N/V symptoms with some help. was kept informed through out the shift of patient's condition. Assisted patient with ADLs and as needed. Needs anticipated and met. 1899-Endorsed to relieving license for proper follow up.
[2022-12-08 20:00] VITALS: BP 162/92
[2022-12-09] MEDS: MORPHINE SULFATE 2 MG/1 ML DISP.SYRIN IV PRN ×4 (00:34→13:00)
[2022-12-09] MEDS: ONDANSETRON 4 MG/2 ML VIAL IV PRN ×4 (00:35→15:08)
[2022-12-09] MEDS: IV NS 1000 ML 1,000 ML IV PRN ×2 (03:30→18:29)
[2022-12-09 04:00] VITALS: BP 157/93
[2022-12-09 06:39] LABS: HEMATOCRIT 38.2 % (36.7-47.1); MEAN CORPUSCULAR HEMOGLOBIN 28.7 uug (23.8-33.4); MEAN CORPUSCULAR VOLUME 84.4 fL (73.0-96.2); PLATELET COUNT (AUTO) 180 K/uL (152-348)
[2022-12-09 07:12] LABS: MAGNESIUM 1.4 mg/dL (1.8-2.4); PHOSPHOROUS 4.1 mg/dL (2.5-4.9); POTASSIUM 3.7 mmol/L (3.5-5.1)
[2022-12-09] MEDS: PANTOPRAZOLE SODIUM 40 MG VIAL IV SCH (08:24)
[2022-12-09] MEDS: ENOXAPARIN SODIUM 40 MG/0.4 ML DISP.SYRIN SQ SCH (08:24)
[2022-12-09] MEDS: MAGNESIUM OXIDE 400 MG TABLET PO SCH ×2 (10:55→14:35)
[2022-12-09 11:00] VITALS: BP 140/93
[2022-12-09] MEDS: ACETAMINOPHEN 325 MG TABLET PO PRN ×2 (11:14→18:28)
[2022-12-09] MEDS: METOCLOPRAMIDE HCL 10 MG/2 ML VIAL IV PRN ×2 (12:48→22:05)
--- NOTE | 2022-12-09 12:53 | NUR ---
Pt reported throwing up again. Reglan given IV. Will return [place] and get IV Morphine instead for pt reported 9/10 pain.
[2022-12-09] MEDS ORDERED: METO-295 PO (14:23)
[2022-12-09] MEDS ORDERED: DICY10CA13 PO (14:23)
[2022-12-09] MEDS ORDERED: DICYCLOMINE HCL 20 MG/2 ML AMPUL IM PRN (14:30)
[2022-12-09 15:05] VITALS: BP 152/100
--- NOTE | 2022-12-09 15:41 | NUR ---
Clinical Social Work Note Pt is a 32 year old male with cannabis dependence and has cannabinoid hyperemesis syndrome. This sports book writer educated the patient re the deleterious effects of his cannabis dependence and provided treatment programs : [facility] [phone], [facility] [phone] and [facility] [phone]. Patient wants to return to work and needs a letter stating he has no restrictions. Advised Rcik Dozier LAND LEVELER re this. Patient will return to his grandmother's house where he lives. Patient's mood is somewhat anxious but he is alert and oriented x4 and able to formulate a plan for his care.
[2022-12-09] MEDS ORDERED: HALOPERIDOL DECANOATE 50 MG/1 ML AMPUL IM PRN (15:45)
--- NOTE | 2022-12-09 17:34 | NUR ---
Spoke to Rick Dozier, ARIE as well as Janet in the pharmacy. Rick says that if the pt is still vomiting with no improvement with zofran and reglan then give haldol. Pt has received multiple doses of Zofran and Reglan today with 2 episodes of vomiting and frequent nausea. Per pharmacy the TO Haldol ordered is not correct. Pharmacy will call CERTIFIED MEDICAL AIDE to clarify the Haldol order. CERTIFIED MEDICAL AIDE also said that if pt is better and stops vomiting he can d/c today. Pt is not comfortable going home. Pt's symptoms have not resolved. Will follow up when Haldol order is in place.
[2022-12-09] MEDS ORDERED: HALOPERIDOL LACTATE 5 MG/1 ML VIAL IM PRN (18:00)
[2022-12-09 20:22] VITALS: BP 105/65
[2022-12-09] MEDS: TRAMADOL HCL 50 MG TABLET PO PRN (22:05)
[2022-12-10] MEDS: ONDANSETRON 4 MG/2 ML VIAL IV PRN ×2 (02:02→08:35)
--- NOTE | 2022-12-10 03:48 | NUR ---
AAOx4 Ambulatory ad lucien. Admitted for intractable nausea/vomiting noted. IVF's infusing well. Patient still having episodes of nausea and vomiting. Reglan given as ordered. Medicated also with tramadol as ordered, slight relief noted. Kept comfortable. Patient still have some episodes of nausea, Zofran 4mg IV given as needed. Will monitor for any effectiveness. Possible d/c to home today. Voiding well.
[2022-12-10 04:37] VITALS: BP 145/98
[2022-12-10] MEDS: TRAMADOL HCL 50 MG TABLET PO PRN (06:27)
[2022-12-10] MEDS: PANTOPRAZOLE SODIUM 40 MG VIAL IV SCH (08:30)
[2022-12-10] MEDS: ENOXAPARIN SODIUM 40 MG/0.4 ML DISP.SYRIN SQ SCH (08:32)
[2022-12-10] MEDS ORDERED: HALOPERIDOL LACTATE 5 MG/1 ML VIAL IM PRN (09:00)
[2022-12-10 11:13] VITALS: BP 129/55
[2022-12-10 15:00] VITALS: BP 130/87
--- NOTE | 2022-12-10 16:08 | NUR ---
0730-Rec'd patient in bed, AAOx4, verbally communicative, denies any pain/discomfort at this time. RR even and unlabored, VSS and under [employer] system/VS tab. Patient continues on IVF hydration NS as ordered by MD. IV to RTFA infusing well, site intact. No ss of fluid overload or dehydration noted. 0835-Zofran administered IV PRN for N/V symptoms. Post reassessment antiemetic effective, patient denies GI discomfort. 0900-Scheduled medication administered as ordered by , patient was seen by Deric Lamb with orders to DC patient today-patient was originally to be DC'D 12/09/22. Miguel assessed patient and spoke to the patient about DC home today. 1023-X1 dose of Haldol 5mg administered as ordered, patient asiya. well. will monitor closely. 1400-DC paperwork ready, per patient his grandma will pick him up by can not do it at this time. She will be here [phone].
--- NOTE | 2022-12-10 17:20 | NUR ---
1720-Patient was discharged safely at this time. VSS, education/med profile provided with good verbal understanding. Inventory list signed and belongings taken. Patient was picked up via private car & his grandmother. Patient denied any GI discomfort, no N/V complaints/symptoms.
== END 2022-12-10 17:15 | disposition home or self-care (01) | DRG 249 ==
LOC: ER 06:31 → MEDSURG3 09:17
PROVIDERS: ADMIT Nurse Practitioner Acute Care; ATTEND Nurse Practitioner Acute Care
DX: R11.2 Nausea with vomiting, unspecified (principal); F12.90 Cannabis use, unspecified, uncomplicated; R10.11 Right upper quadrant pain; R10.12 Left upper quadrant pain; G89.29 Other chronic pain; Z87.19 Personal history of other diseases of the digestive system; Z90.49 Acquired absence of other specified parts of digestive tract; Z72.0 Tobacco use; R79.89 Other specified abnormal findings of blood chemistry
CPT/HCPCS: 36415; 83690; 83735; 84100; 85025; A4663; C9113; G0378; J0500; J1630; J1650; J2270; J2405; J2765; J3490; J7040

== ENCOUNTER 2023-03-19 08:56 | Emergency (ER) | payer OTHER ==
[~2023-03-19] VITALS: Ht 170.2 cm; Wt 70.3 kg
[~2023-03-19 08:56] MED LIST changes: +DICY10CA13 PO; -FAMO10TA41 PO; -ONDA4TAB5 PO
[2023-03-19] MEDS ORDERED: LORAZEPAM 2 MG/1 ML VIAL ONE (09:23)
[2023-03-19] MEDS ORDERED: LORAZEPAM 2 MG/1 ML VIAL IM ONE (09:30)
[2023-03-19] MEDS ORDERED: ACETAMINOPHEN ES 500 MG TABLET PO ONE (09:45)
[2023-03-19] MEDS ORDERED: ACETAMINOPHEN ES 500 MG TABLET ONE (09:46)
[2023-03-19] MEDS ORDERED: LORA0.5T48 PO (10:11)
[2023-03-19 10:22] VITALS: BP 122/70; TEMP 98; O2SAT 99
== END 2023-03-19 10:23 | disposition home or self-care (01) ==
LOC: ER 08:56
DX: R11.2 Nausea with vomiting, unspecified (principal); R10.84 Generalized abdominal pain; F17.210 Nicotine dependence, cigarettes, uncomplicated; Z90.49 Acquired absence of other specified parts of digestive tract; Z79.2 Long term (current) use of antibiotics; Z79.899 Other long term (current) drug therapy
CPT/HCPCS: 99283; 96372; J2060; A4663; A9150

== ENCOUNTER 2023-03-19 11:58 | Inpatient (IN) | payer OTHER ==
[~2023-03-19] VITALS: Ht 170.2 cm; Wt 61.2 kg
[~2023-03-19 11:58] MED LIST changes: +LORA0.5T48 PO
[2023-03-19] MEDS ORDERED: IV NORMAL SALINE 500 ML BAG IV ONE (12:15)
[2023-03-19 12:44] LABS: BASOPHILS # (AUTO) 0.1 K/UL (0.0-0.2); BASOPHILS % (AUTO) 0.4 % (0.0-2.0); HEMATOCRIT 54.6 % (36.7-47.1); HEMOGLOBIN 19.7 g/dL (12.5-16.3); LYMPHOCYTES # (AUTO) 0.3 K/uL (0.8-4.8); LYMPHOCYTES % (AUTO) 2.4 % (20.5-51.5); MEAN CORPUSCULAR HEMOGLOBIN 29.4 uug (23.8-33.4); MEAN CORPUSCULAR HGB CONC 36 g/dL (32.5-36.3); MEAN CORPUSCULAR VOLUME 81.6 fL (73.0-96.2); MONOCYTES # (AUTO) 1.1 K/uL (0.1-1.30); NEUTROPHILS # (AUTO) 10.8 K/uL (1.8-8.9); NEUTROPHILS % (AUTO) 88.2 % (38.5-71.5); PLATELET COUNT (AUTO) 311 K/uL (152-348); RED CELL DISTRIBUTION WIDTH 13.7 % (12.1-16.2); WHITE BLOOD COUNT (AUTO) 12.3 K/uL (3.6-10.2)
[2023-03-19 12:50] LABS: DIFFERENTIAL COMMENT 1; RED BLOOD CELL COUNT(AUTO) 6.69 MIL/uL (4.06-5.63)
[2023-03-19 12:55] LABS: ALBUMIN 5.4 g/dL (3.4-5.0); BILIRUBIN,DIRECT 0.3 mg/dL (0.0-0.2); BILIRUBIN,TOTAL 1.1 mg/dL (0.2-1.0); CALCIUM 10.8 mg/dL (8.5-10.1); POTASSIUM 5.4 mmol/L (3.5-5.1); TOTAL PROTEIN, SERUM 10.8 g/dL (6.4-8.2)
[2023-03-19 13:03] LABS: CREATININE 9.8 mg/dL (0.6-1.3)
[2023-03-19] MEDS ORDERED: SODIUM POLYSTYRENE SULFONATE 15 G/60 ML LIQUID UDC PO ONE (13:30)
[2023-03-19] MEDS ORDERED: SODIUM POLYSTYRENE SULFONATE 15 G/60 ML LIQUID UDC ONE (13:45)
[2023-03-19] MEDS ORDERED: IV NORMAL SALINE 1000 ML BAG IV ONE (14:15)
[2023-03-19] MEDS ORDERED: ACETAMINOPHEN 325 MG TABLET PO PRN (15:00)
[2023-03-19] MEDS ORDERED: IV NS 1000 ML 1,000 ML IV PRN (15:00)
[2023-03-19] MEDS ORDERED: REMEDY ESSENTIAL ZINC PASTE 113 GM TP PRN (15:00)
[2023-03-19] MEDS ORDERED: ONDANSETRON 4 MG/2 ML VIAL IV PRN (15:00)
[2023-03-19 19:26] VITALS: BP 147/112; TEMP 98; O2SAT 100
[2023-03-19 20:04] LABS: CALCIUM 9.7 mg/dL (8.5-10.1); CREATININE 5.6 mg/dL (0.6-1.3); POTASSIUM 3.9 mmol/L (3.5-5.1)
[2023-03-20 06:22] VITALS: BP 158/87; TEMP 98.3; O2SAT 100
[2023-03-20] MEDS: IV NS 1000 ML 1,000 ML IV PRN ×3 (06:30→16:20)
[2023-03-20 06:56] LABS: BASOPHILS % (AUTO) 0.2 % (0.0-2.0); EOSINOPHILS % (AUTO) 0.4 % (0.0-7.0); HEMATOCRIT 40.5 % (36.7-47.1); HEMOGLOBIN 14.8 g/dL (12.5-16.3); LYMPHOCYTES # (AUTO) 0.9 K/uL (0.8-4.8); LYMPHOCYTES % (AUTO) 12.9 % (20.5-51.5); MEAN CORPUSCULAR HEMOGLOBIN 29.3 uug (23.8-33.4); MEAN CORPUSCULAR HGB CONC 37 g/dL (32.5-36.3); MEAN CORPUSCULAR VOLUME 80.1 fL (73.0-96.2); MONOCYTES % (AUTO) 14.3 % (0.0-11.0); NEUTROPHILS # (AUTO) 4.9 K/uL (1.8-8.9); NEUTROPHILS % (AUTO) 72.2 % (38.5-71.5); PLATELET COUNT (AUTO) 216 K/uL (152-348); RED BLOOD CELL COUNT(AUTO) 5.06 MIL/uL (4.06-5.63); RED CELL DISTRIBUTION WIDTH 13.2 % (12.1-16.2); WHITE BLOOD COUNT (AUTO) 6.8 K/uL (3.6-10.2)
[2023-03-20 07:22] LABS: ALBUMIN 3.7 g/dL (3.4-5.0); BILIRUBIN,TOTAL 1.6 mg/dL (0.2-1.0); CALCIUM 9.9 mg/dL (8.5-10.1); CREATININE 2.2 mg/dL (0.6-1.3); POTASSIUM 3.1 mmol/L (3.5-5.1); TOTAL PROTEIN, SERUM 7.4 g/dL (6.4-8.2)
[2023-03-20 08:10] LABS: DIFFERENTIAL COMMENT 1
[2023-03-20] MEDS ORDERED: POTASSIUM CHLORIDE 20 MEQ TAB.PRT.SR PO ONE (09:00)
[2023-03-20 11:30] VITALS: BP_SYST 121; BP_SYST 124; BP_DIAS 63; BP_DIAS 76; TEMP 97.6; TEMP 98.2; O2SAT 100; O2SAT 98
[2023-03-20 16:00] VITALS: BP 129/84; TEMP 98.2; O2SAT 99
[2023-03-20 20:00] VITALS: BP 143/84; TEMP 98.8; O2SAT 99
[2023-03-21] MEDS: IV NS 1000 ML 1,000 ML IV PRN ×4 (00:33→20:34)
[2023-03-21 05:38] VITALS: BP 136/80; TEMP 98.6; O2SAT 98
[2023-03-21 08:00] VITALS: BP 121/77; TEMP 98.3; O2SAT 99
[2023-03-21 12:00] VITALS: BP 128/73; TEMP 98.1; O2SAT 100
[2023-03-21 12:04] LABS: CALCIUM 8.8 mg/dL (8.5-10.1); CARBON DIOXIDE 30 mmol/L (21-32); CHLORIDE 101 mmol/L (98-107); CREATINE KINASE, TOTAL 671 U/L (39-308); CREATININE 0.8 mg/dL (0.6-1.3); GLUCOSE 90 mg/dL (74-106); POTASSIUM 4.1 mmol/L (3.5-5.1); SODIUM SERUM 137 mmol/L (136-145); UREA NITROGEN, BLOOD 27 mg/dL (7-18)
[2023-03-21 16:00] VITALS: BP_SYST 128; BP_SYST 139; BP_DIAS 74; BP_DIAS 83; TEMP 98; TEMP 98.7; O2SAT 96; O2SAT 99
[2023-03-21 20:26] VITALS: BP 120/83; TEMP 98.9; O2SAT 100
[2023-03-22] MEDS: IV NS 1000 ML 1,000 ML IV PRN ×2 (02:38→09:16)
[2023-03-22 04:27] VITALS: BP 118/78; TEMP 98.5; O2SAT 100
[2023-03-22 08:00] VITALS: BP 125/89; TEMP 97.9; O2SAT 100
[2023-03-22 11:30] VITALS: BP 135/78; TEMP 98.7; O2SAT 100
== END 2023-03-22 13:25 | disposition home or self-care (01) | DRG 469 ==
LOC: ER 11:58 → TELE3 14:39 → MEDSURG3 17:00
PROVIDERS: ADMIT Internal Medicine; ATTEND Internal Medicine
DX: N17.0 Acute kidney failure with tubular necrosis (principal); M62.82 Rhabdomyolysis; E87.1 Hypo-osmolality and hyponatremia; E87.5 Hyperkalemia; R11.15 Cyclical vomiting syndrome unrelated to migraine; D72.829 Elevated white blood cell count, unspecified; R74.01 Elevation of levels of liver transaminase levels; F12.10 Cannabis abuse, uncomplicated; K21.9 Gastro-esophageal reflux disease without esophagitis; G89.29 Other chronic pain; M54.9 Dorsalgia, unspecified; K29.70 Gastritis, unspecified, without bleeding
CPT/HCPCS: 36415; 71045; 76770; 83690; 85025; 87040; 93005; A4663; G0378; J7040

== ENCOUNTER 2023-06-09 11:57 | Emergency (ER) | payer SELFPAY ==
[~2023-06-09] VITALS: Ht 170.2 cm; Wt 70.3 kg
[2023-06-09] MEDS ORDERED: ONDANSETRON 4 MG/2 ML VIAL IV ONE (12:15)
[2023-06-09] MEDS ORDERED: IV NORMAL SALINE 1000 ML BAG IV ONE (12:15)
[2023-06-09 12:30] LABS: BASOPHILS # (AUTO) 0.1 K/UL (0.0-0.2); EOSINOPHILS % (AUTO) 0.4 % (0.0-7.0); HEMATOCRIT 41.8 % (36.7-47.1); HEMOGLOBIN 14.5 g/dL (12.5-16.3); LYMPHOCYTES # (AUTO) 0.6 K/uL (0.8-4.8); LYMPHOCYTES % (AUTO) 9.4 % (20.5-51.5); MEAN CORPUSCULAR HEMOGLOBIN 28.7 uug (23.8-33.4); MEAN CORPUSCULAR HGB CONC 35 g/dL (32.5-36.3); MEAN CORPUSCULAR VOLUME 82.9 fL (73.0-96.2); MONOCYTES # (AUTO) 0.7 K/uL (0.1-1.30); MONOCYTES % (AUTO) 10.2 % (0.0-11.0); NEUTROPHILS # (AUTO) 5.3 K/uL (1.8-8.9); PLATELET COUNT (AUTO) 288 K/uL (152-348); RED BLOOD CELL COUNT(AUTO) 5.04 MIL/uL (4.06-5.63); RED CELL DISTRIBUTION WIDTH 14.3 % (12.1-16.2); WHITE BLOOD COUNT (AUTO) 6.7 K/uL (3.6-10.2)
[2023-06-09 12:38] LABS: CALCIUM 10.7 mg/dL (8.5-10.1); POTASSIUM 3.1 mmol/L (3.5-5.1)
[2023-06-09 12:47] LABS: ALBUMIN 4.7 g/dL (3.4-5.0); BILIRUBIN,DIRECT 0.3 mg/dL (0.0-0.2); TOTAL PROTEIN, SERUM 8.5 g/dL (6.4-8.2)
[2023-06-09 12:48] LABS: DIFFERENTIAL COMMENT 1
[2023-06-09] MEDS ORDERED: DICY10CA13 PO (16:35)
[2023-06-09] MEDS ORDERED: ONDANSETRON 4 MG/2 ML VIAL ONE (20:36)
[2023-06-09 23:18] VITALS: BP 126/78; TEMP 97.9; O2SAT 99
== END 2023-06-09 23:19 | disposition home or self-care (01) ==
LOC: ER 11:57
DX: R11.2 Nausea with vomiting, unspecified (principal); R10.9 Unspecified abdominal pain; R19.7 Diarrhea, unspecified; Z90.49 Acquired absence of other specified parts of digestive tract; Z79.2 Long term (current) use of antibiotics
CPT/HCPCS: 99283; 96374; 96361; 80076; 80048; 83690; 85025; J2405; J7040; A4606; A4663

== ENCOUNTER 2024-02-01 15:21 | Emergency (ER) | payer MEDICAID ==
[~2024-02-01] VITALS: Ht 170.2 cm; Wt 68.0 kg
[~2024-02-01 15:21] MED LIST changes: -FAMO-132 PO; -LORA0.5T48 PO; -METO-295 PO
[2024-02-01] MEDS ORDERED: diphenhydrAMINE 50 MG/1 ML VIAL ONE (17:10)
[2024-02-01] MEDS ORDERED: HYDROMORPHONE 1 MG/1 ML DISP.SYRIN ONE (17:11)
[2024-02-01] MEDS ORDERED: METOCLOPRAMIDE HCL 10 MG/2 ML VIAL ONE (17:11)
[2024-02-01] MEDS: diphenhydrAMINE 50 MG/1 ML VIAL IV ONE (17:12)
[2024-02-01] MEDS: METOCLOPRAMIDE HCL 10 MG/2 ML VIAL IV ONE (17:25)
[2024-02-01] MEDS: IV NORMAL SALINE 1000 ML BAG IV ONE ×2 (17:25→18:18)
[2024-02-01] MEDS: HYDROMORPHONE 1 MG/1 ML DISP.SYRIN IV ONE (17:25)
[2024-02-01 17:28] LABS: BASOPHILS % (AUTO) 0.4 % (0.0-2.0); EOSINOPHILS % (AUTO) 0.1 % (0.0-7.0); HEMATOCRIT 42.6 % (36.7-47.1); HEMOGLOBIN 14.6 g/dL (12.5-16.3); LYMPHOCYTES # (AUTO) 1.3 K/uL (0.8-4.8); LYMPHOCYTES % (AUTO) 10.8 % (20.5-51.5); MEAN CORPUSCULAR HEMOGLOBIN 29.2 uug (23.8-33.4); MEAN CORPUSCULAR HGB CONC 34 g/dL (32.5-36.3); MONOCYTES # (AUTO) 1.3 K/uL (0.1-1.30); NEUTROPHILS # (AUTO) 9.3 K/uL (1.8-8.9); NEUTROPHILS % (AUTO) 77.7 % (38.5-71.5); PLATELET COUNT (AUTO) 254 K/uL (152-348); RED CELL DISTRIBUTION WIDTH 14.2 % (12.1-16.2)
[2024-02-01 17:32] LABS: DIFFERENTIAL COMMENT 1
[2024-02-01 17:36] LABS: CALCIUM 9.4 mg/dL (8.5-10.1); CARBON DIOXIDE 26 mmol/L (21-32); CHLORIDE 99 mmol/L (98-107); CREATININE 1.4 mg/dL (0.6-1.3); GLUCOSE 103 mg/dL (74-106); POTASSIUM 3.1 mmol/L (3.5-5.1); SODIUM SERUM 139 mmol/L (136-145); UREA NITROGEN, BLOOD 19 mg/dL (7-18)
[2024-02-01 17:37] LABS: LIPASE 126 U/L (16-77)
[2024-02-01 17:45] LABS: ALANINE AMINOTRANSFERASE 32 U/L (16-63); ALBUMIN 4.6 g/dL (3.4-5.0); ALKALINE PHOSPHATASE 118 U/L (50-136); ASPARTATE AMINOTRANSFERASE 22 U/L (15-37); BILIRUBIN,DIRECT 0.3 mg/dL (0.0-0.2); BILIRUBIN,TOTAL 1.1 mg/dL (0.2-1.0); TOTAL PROTEIN, SERUM 8.8 g/dL (6.4-8.2)
[2024-02-01] MEDS ORDERED: OXYCODONE/APAP 5-325 MG TABLET ONE (19:26)
[2024-02-01] MEDS: OXYCODONE/APAP 5-325 MG TABLET PO ONE (19:30)
[2024-02-01 20:25] VITALS: BP 130/88; TEMP 98.5; O2SAT 100
[2024-02-04] MEDS ORDERED: HYDR-3972 PO (10:18)
[2024-02-04] MEDS ORDERED: ONDA4TAB5 PO (10:18)
== END 2024-02-01 20:22 | disposition home or self-care (01) ==
LOC: ER 15:22
DX: R11.10 Vomiting, unspecified (principal); F17.200 Nicotine dependence, unspecified, uncomplicated; Z90.49 Acquired absence of other specified parts of digestive tract; Z79.899 Other long term (current) drug therapy
CPT/HCPCS: 99285; 74176; 96374; 96361; 96375; 71045; 80076; 80048; 83690; 85025; 85730; 84484; 36415; 93005; J1200; J2765; J1170; A4606; A4663

== ENCOUNTER 2024-02-02 22:47 | Inpatient (IN) | payer MEDICAID ==
[~2024-02-02] VITALS: Ht 170.2 cm; Wt 68.0 kg
[2024-02-03 02:52] LABS: BASOPHILS % (AUTO) 0.3 % (0.0-2.0); EOSINOPHILS % (AUTO) 0.4 % (0.0-7.0); HEMATOCRIT 43.7 % (36.7-47.1); HEMOGLOBIN 14.9 g/dL (12.5-16.3); LYMPHOCYTES # (AUTO) 1.6 K/uL (0.8-4.8); LYMPHOCYTES % (AUTO) 23.2 % (20.5-51.5); MEAN CORPUSCULAR HEMOGLOBIN 28.7 uug (23.8-33.4); MEAN CORPUSCULAR HGB CONC 34 g/dL (32.5-36.3); MEAN CORPUSCULAR VOLUME 84.6 fL (73.0-96.2); MONOCYTES # (AUTO) 0.8 K/uL (0.1-1.30); MONOCYTES % (AUTO) 10.8 % (0.0-11.0); NEUTROPHILS # (AUTO) 4.6 K/uL (1.8-8.9); NEUTROPHILS % (AUTO) 65.3 % (38.5-71.5); PLATELET COUNT (AUTO) 246 K/uL (152-348); RED BLOOD CELL COUNT(AUTO) 5.17 MIL/uL (4.06-5.63)
[2024-02-03 03:03] LABS: CALCIUM 9.2 mg/dL (8.5-10.1); CREATININE 1.1 mg/dL (0.6-1.3); POTASSIUM 3.4 mmol/L (3.5-5.1)
[2024-02-03 03:04] LABS: DIFFERENTIAL COMMENT 1
[2024-02-03 03:11] LABS: ALBUMIN 4.2 g/dL (3.4-5.0); BILIRUBIN,DIRECT 0.4 mg/dL (0.0-0.2); BILIRUBIN,TOTAL 1.2 mg/dL (0.2-1.0); TOTAL PROTEIN, SERUM 8.4 g/dL (6.4-8.2)
[2024-02-03] MEDS: IV NORMAL SALINE 1000 ML BAG IV ONE (04:00)
[2024-02-03] MEDS ORDERED: ONDANSETRON 4 MG/2 ML VIAL ONE (04:27)
[2024-02-03] MEDS ORDERED: HYDROMORPHONE 1 MG/1 ML DISP.SYRIN ONE ×2 (04:28→09:11)
[2024-02-03] MEDS: ONDANSETRON 4 MG/2 ML VIAL IV ONE (04:30)
[2024-02-03] MEDS: HYDROMORPHONE 1 MG/1 ML DISP.SYRIN IV ONE (04:30)
[2024-02-03] MEDS ORDERED: KETOROLAC TROMETHAMINE 30 MG INJ ONE (07:42)
[2024-02-03] MEDS: KETOROLAC TROMETHAMINE 30 MG INJ IVP ONE (07:45)
[2024-02-03] MEDS ORDERED: REMEDY ESSENTIAL ZINC PASTE 113 GM TP PRN (09:00)
[2024-02-03] MEDS ORDERED: MAGNESIUM HYDROXIDE 30 ML LIQUID UDC PO PRN (09:00)
[2024-02-03] MEDS ORDERED: ACETAMINOPHEN 325 MG TABLET PO PRN (09:00)
[2024-02-03] MEDS ORDERED: POTASSIUM CHLORIDE 200 ML ONE (09:10)
[2024-02-03] MEDS ORDERED: PANTOPRAZOLE SODIUM 40 MG VIAL ONE (09:11)
[2024-02-03] MEDS: PANTOPRAZOLE SODIUM 40 MG VIAL IV SCH (09:30)
[2024-02-03] MEDS: POTASSIUM CHLORIDE 50 ML IV SCH (09:30)
[2024-02-03] MEDS: HYDROMORPHONE 1 MG/1 ML DISP.SYRIN IV PRN (09:30)
[2024-02-03] MEDS ORDERED: ONDA4TAB11 PO (14:11)
[2024-02-03] MEDS ORDERED: KETO10TA2 PO (14:11)
[2024-02-03] MEDS ORDERED: METO-295 PO (14:11)
[2024-02-03 14:28] VITALS: BP 130/85; TEMP 97.7; O2SAT 99
[2024-02-03 15:47] LABS: *BILIRUBIN,URIN 1+ (NEGATIVE); *BLOOD, URINE NEGATIVE (NEGATIVE); *CLARITY,URINE CLEAR (CLEAR); *KETONES,URINE TRACE (NEGATIVE); *PROTEIN,URINE 2+ (NEGATIVE); LEUKOCYTE ESTERASE ,URINE NEGATIVE (NEGATIVE); NITRITE, URINE NEGATIVE (NEGATIVE); UGLUCOSE NEGATIVE (NEGATIVE)
[2024-02-03 15:53] LABS: *COLOR,URINE DARK YELLOW (YELLOW)
[2024-02-03 16:00] LABS: BACTERIA,URINE FEW /HPF (NONE SEEN); RBC,URINE NONE SEEN /HPF (0-3); SQUAMOUS EPITHELIAL CELL,UR FEW /HPF (NONE SEEN)
[2024-02-03 16:01] LABS: MUCUS,URINE MODERATE /LPF (0-FEW)
[2024-02-03] MEDS: ONDANSETRON 4 MG/2 ML VIAL IV PRN (17:51)
[2024-02-03] MEDS: IV NS 1000 ML 1,000 ML IV PRN (17:52)
[2024-02-03 20:00] VITALS: BP 136/91; TEMP 97.7; O2SAT 100
[2024-02-03] MEDS: LORAZEPAM 0.5 MG TABLET PO PRN (21:44)
[2024-02-04] VITALS: BP 140/87; TEMP 97.5; O2SAT 100
[2024-02-04 04:00] VITALS: BP 146/77; TEMP 97; O2SAT 99
[2024-02-04 06:59] LABS: BASOPHILS % (AUTO) 0.5 % (0.0-2.0); EOSINOPHILS # (AUTO) 0.2 K/uL (0.0-0.7); HEMOGLOBIN 12.8 g/dL (12.5-16.3); LYMPHOCYTES # (AUTO) 1.6 K/uL (0.8-4.8); LYMPHOCYTES % (AUTO) 33.6 % (20.5-51.5); MEAN CORPUSCULAR HEMOGLOBIN 28.9 uug (23.8-33.4); MEAN CORPUSCULAR HGB CONC 34 g/dL (32.5-36.3); MEAN CORPUSCULAR VOLUME 85.6 fL (73.0-96.2); MONOCYTES # (AUTO) 0.4 K/uL (0.1-1.30); MONOCYTES % (AUTO) 8.7 % (0.0-11.0); NEUTROPHILS # (AUTO) 2.5 K/uL (1.8-8.9); NEUTROPHILS % (AUTO) 52.2 % (38.5-71.5); PLATELET COUNT (AUTO) 204 K/uL (152-348); RED BLOOD CELL COUNT(AUTO) 4.44 MIL/uL (4.06-5.63); RED CELL DISTRIBUTION WIDTH 13.4 % (12.1-16.2); WHITE BLOOD COUNT (AUTO) 4.8 K/uL (3.6-10.2)
[2024-02-04 07:09] LABS: DIFFERENTIAL COMMENT 1
[2024-02-04 07:11] LABS: CALCIUM 8.3 mg/dL (8.5-10.1); CREATININE 1.1 mg/dL (0.6-1.3); MAGNESIUM 2.2 mg/dL (1.8-2.4); PHOSPHOROUS 3.9 mg/dL (2.5-4.9)
[2024-02-04 08:00] VITALS: BP 138/95; TEMP 97.2; O2SAT 100
[2024-02-04] MEDS ORDERED: ONDA4TAB5 PO (10:18)
[2024-02-04] MEDS ORDERED: HYDR-3972 PO (10:18)
[2024-02-04] MEDS: LACTULOSE 20 G/30 ML LIQUID UDC PO ONE (10:19)
[2024-02-04] MEDS: MIRALAX 17 GM POWD.PACK PO ONE (10:19)
[2024-02-04 11:48] VITALS: BP 133/85; TEMP 97.3; O2SAT 100
== END 2024-02-04 15:00 | disposition home or self-care (01) | DRG 282 ==
LOC: ER 22:50 → TELE3 02-03 10:55 → MEDSURG3 02-04 09:18
PROVIDERS: ADMIT Nurse Practitioner Acute Care; ATTEND Nurse Practitioner Acute Care
DX: K85.90 Acute pancreatitis without necrosis or infection, unspecified (principal); E87.6 Hypokalemia; R00.1 Bradycardia, unspecified; K59.00 Constipation, unspecified; F12.90 Cannabis use, unspecified, uncomplicated; G89.29 Other chronic pain; Z87.19 Personal history of other diseases of the digestive system; K57.30 Diverticulosis of large intestine without perforation or abscess without bleeding
CPT/HCPCS: 36415; 71045; 83690; 83735; 84100; 84484; 85025; 85730; 93005; G0378; J1170; J1885; J2405; J2470; J3480; J7040

== ENCOUNTER 2024-09-03 12:29 | Emergency (ER) | payer MEDICAID, OTHER ==
[~2024-09-03] VITALS: Ht 170.2 cm; Wt 68.0 kg
[~2024-09-03 12:29] MED LIST changes: -DICY10CA13 PO; +HYDR-3972 PO; +ONDA4TAB11 PO; +ONDA4TAB5 PO
[2024-09-03 13:01] LABS: BASOPHILS # (AUTO) 0.1 K/UL (0.0-0.2); BASOPHILS % (AUTO) 0.5 % (0.0-2.0); EOSINOPHILS % (AUTO) 0.2 % (0.0-7.0); HEMATOCRIT 51.5 % (36.7-47.1); HEMOGLOBIN 17.5 g/dL (12.5-16.3); LYMPHOCYTES # (AUTO) 0.4 K/uL (0.8-4.8); LYMPHOCYTES % (AUTO) 3.3 % (20.5-51.5); MEAN CORPUSCULAR HGB CONC 34 g/dL (32.5-36.3); MEAN CORPUSCULAR VOLUME 85.3 fL (73.0-96.2); MONOCYTES # (AUTO) 0.9 K/uL (0.1-1.30); MONOCYTES % (AUTO) 7.9 % (0.0-11.0); NEUTROPHILS # (AUTO) 10.2 K/uL (1.8-8.9); NEUTROPHILS % (AUTO) 88.1 % (38.5-71.5); PLATELET COUNT (AUTO) 250 K/uL (152-348); RED BLOOD CELL COUNT(AUTO) 6.04 MIL/uL (4.06-5.63); WHITE BLOOD COUNT (AUTO) 11.5 K/uL (3.6-10.2)
[2024-09-03] MEDS ORDERED: MORPHINE SULFATE 4 MG/1 ML DISP.SYRIN ONE (13:12)
[2024-09-03] MEDS ORDERED: diphenhydrAMINE 50 MG/1 ML VIAL ONE (13:12)
[2024-09-03] MEDS ORDERED: PANTOPRAZOLE SODIUM 40 MG VIAL ONE ×2 (13:12→16:58)
[2024-09-03] MEDS: diphenhydrAMINE 50 MG/1 ML VIAL IV ONE (13:12)
[2024-09-03] MEDS ORDERED: METOCLOPRAMIDE HCL 10 MG/2 ML VIAL ONE (13:12)
[2024-09-03] MEDS: IV NS 1000 ML 1,000 ML IV ONE (13:13)
[2024-09-03] MEDS: PANTOPRAZOLE SODIUM IV 40 MG in IV DEXTROSE 5% 100 ML IV ONE (13:14)
[2024-09-03] MEDS: METOCLOPRAMIDE HCL 10 MG/2 ML VIAL IV ONE (13:16)
[2024-09-03] MEDS: MORPHINE SULFATE 4 MG/1 ML DISP.SYRIN IV ONE (13:17)
[2024-09-03 13:25] LABS: CALCIUM 11.2 mg/dL (8.5-10.1); CARBON DIOXIDE 24 mmol/L (21-32); CHLORIDE 99 mmol/L (98-107); CREATININE 1.5 mg/dL (0.6-1.3); GLUCOSE 141 mg/dL (74-106); SODIUM SERUM 138 mmol/L (136-145); UREA NITROGEN, BLOOD 17 mg/dL (7-18)
[2024-09-03 13:27] LABS: DIFFERENTIAL COMMENT 1
[2024-09-03 13:58] LABS: ETHANOL < 3 MG/DL (0-10)
[2024-09-03] MEDS ORDERED: MIDAZOLAM HCL 2 MG/2 ML VIAL ONE (14:29)
[2024-09-03] MEDS ORDERED: METO-295 PO (14:52)
[2024-09-03] MEDS ORDERED: PANT40TA49 PO (14:52)
[2024-09-03] MEDS: MIDAZOLAM HCL 2 MG/2 ML VIAL IV ONE (15:09)
[2024-09-03] MEDS: IV LACTATED RINGERS SOLUTION 1,000 ML BAG IV ONE (15:12)
[2024-09-03] MEDS ORDERED: ONDANSETRON 4 MG/2 ML VIAL ONE (16:51)
[2024-09-03] MEDS ORDERED: DEXAMETHASONE SOD PHOSPHATE 4 MG INJ ONE (16:51)
[2024-09-03] MEDS: DEXAMETHASONE SOD PHOSPHATE 4 MG INJ IV ONE (16:54)
[2024-09-03] MEDS: ONDANSETRON 4 MG/2 ML VIAL IV ONE (16:54)
[2024-09-03 17:25] VITALS: BP 128/78; TEMP 98; O2SAT 99
== END 2024-09-03 17:26 | disposition home or self-care (01) ==
LOC: ER 12:45
DX: R11.15 Cyclical vomiting syndrome unrelated to migraine (principal); F12.90 Cannabis use, unspecified, uncomplicated; F17.200 Nicotine dependence, unspecified, uncomplicated; G89.29 Other chronic pain; Z79.899 Other long term (current) drug therapy; Z87.19 Personal history of other diseases of the digestive system; Z90.49 Acquired absence of other specified parts of digestive tract; Z88.7 Allergy status to serum and vaccine
CPT/HCPCS: 80048; 83690; 85025; 84484; 36415; 93005; 99284; 96365; 96366; 96375; 80320; J1100; J1200; J2765; J2250; J2405; J2470 ×2; J2270; J7120; J7040; A4606; A4663; G0480

== ENCOUNTER 2024-09-05 08:13 | Emergency (ER) | payer OTHER ==
[~2024-09-05] VITALS: Ht 165.1 cm; Wt 63.5 kg
[~2024-09-05 08:13] MED LIST changes: +METO-295 PO; +PANT40TA49 PO
[2024-09-05] MEDS ORDERED: METOCLOPRAMIDE HCL 10 MG/2 ML VIAL ONE (08:37)
[2024-09-05] MEDS ORDERED: diphenhydrAMINE 50 MG/1 ML VIAL ONE ×2 (08:37→09:43)
[2024-09-05] MEDS ORDERED: MIDAZOLAM HCL 2 MG/2 ML VIAL ONE (08:37)
[2024-09-05] MEDS: diphenhydrAMINE 50 MG/1 ML VIAL IV ONE ×2 (08:43→09:48)
[2024-09-05] MEDS: IV NORMAL SALINE 1000 ML BAG IV ONE (08:43)
[2024-09-05] MEDS: METOCLOPRAMIDE HCL 10 MG/2 ML VIAL IV ONE (08:45)
[2024-09-05] MEDS: MIDAZOLAM HCL 2 MG/2 ML VIAL IV ONE (08:45)
[2024-09-05 08:48] LABS: BASOPHILS % (AUTO) 0.5 % (0.0-2.0); EOSINOPHILS % (AUTO) 0.4 % (0.0-7.0); HEMATOCRIT 41.2 % (36.7-47.1); HEMOGLOBIN 14.5 g/dL (12.5-16.3); LYMPHOCYTES # (AUTO) 0.9 K/uL (0.8-4.8); LYMPHOCYTES % (AUTO) 15.1 % (20.5-51.5); MEAN CORPUSCULAR HEMOGLOBIN 29.6 uug (23.8-33.4); MEAN CORPUSCULAR HGB CONC 35 g/dL (32.5-36.3); MEAN CORPUSCULAR VOLUME 84.1 fL (73.0-96.2); MONOCYTES # (AUTO) 0.6 K/uL (0.1-1.30); MONOCYTES % (AUTO) 9.7 % (0.0-11.0); NEUTROPHILS # (AUTO) 4.5 K/uL (1.8-8.9); NEUTROPHILS % (AUTO) 74.3 % (38.5-71.5); PLATELET COUNT (AUTO) 207 K/uL (152-348); RED CELL DISTRIBUTION WIDTH 14.3 % (12.1-16.2); WHITE BLOOD COUNT (AUTO) 6.1 K/uL (3.6-10.2)
[2024-09-05 09:07] LABS: DIFFERENTIAL COMMENT 1
[2024-09-05] MEDS ORDERED: KETOROLAC TROMETHAMINE 30 MG INJ ONE (09:43)
[2024-09-05] MEDS ORDERED: PROCHLORPERAZINE EDISYLATE 10 MG/2 ML VIAL ONE (09:43)
[2024-09-05] MEDS: PROCHLORPERAZINE EDISYLATE 10 MG/2 ML VIAL IV ONE (09:48)
[2024-09-05] MEDS: KETOROLAC TROMETHAMINE 30 MG INJ IVP ONE (09:48)
[2024-09-05 10:03] LABS: CALCIUM 9.9 mg/dL (8.5-10.1); CREATININE 1.4 mg/dL (0.6-1.3); POTASSIUM 3.9 mmol/L (3.5-5.1)
[2024-09-05] MEDS: IV NS 1000 ML 1,000 ML IV ONE (10:16)
[2024-09-05] MEDS ORDERED: DIAZEPAM 10 MG/2 ML DISP.SYRIN ONE (12:06)
[2024-09-05] MEDS ORDERED: ONDANSETRON 4 MG/2 ML VIAL ONE (12:06)
[2024-09-05] MEDS: DIAZEPAM 10 MG/2 ML DISP.SYRIN IV ONE (12:11)
[2024-09-05] MEDS: ONDANSETRON 4 MG/2 ML VIAL IV ONE (12:11)
[2024-09-05] MEDS ORDERED: FAMO20TA8 PO (14:58)
[2024-09-05 15:20] VITALS: BP 131/69; O2SAT 98
== END 2024-09-05 15:21 | disposition home or self-care (01) ==
LOC: ER 08:13
DX: R11.15 Cyclical vomiting syndrome unrelated to migraine (principal); R10.9 Unspecified abdominal pain; F12.90 Cannabis use, unspecified, uncomplicated; F17.200 Nicotine dependence, unspecified, uncomplicated; G89.29 Other chronic pain; Z79.899 Other long term (current) drug therapy; Z87.19 Personal history of other diseases of the digestive system; Z88.7 Allergy status to serum and vaccine; Z90.49 Acquired absence of other specified parts of digestive tract
CPT/HCPCS: 99284; 96375; 96374; 96361; 80048; 83690; 85025; 36415; 74018; 96376; J1885; J3360; J1200 ×2; J2765; J2250; J2405; J0780; J7040 ×3; A4606; A4663